=== PATIENT | female | born 1945 ===

== ENCOUNTER 2017-05-23 08:30 | Day surgery (SDC) | payer MEDICARE, MEDICAID ==
[2015-11-08 07:52] VITALS: BMI 44.4
[2017-05-23 10:18] VITALS: PULSE 70; RESP 18
--- NOTE | 2017-05-23 11:09 | CP.SDSHP ---
Same Day Surgery H & P - History Proposed Procedure: US guided FNA of thyroid nodules Pre-Op Diagnosis: Thyroid nodules - Allergies Allergies: Allergies No Known Allergies Allergy (Verified 11/08/15 07:51) - Physical Exam Vital Signs: Vital Signs 05/23/17 10:11 Temperature 97.9 F Pulse Rate 70 Respiratory 18 Rate Blood Pressure 125/71 O2 Sat by Pulse 97 Oximetry Mental Status: Alert & Oriented x3 - Impression Impression: Pt with a complex, calcified right 3 cm thyroid nodule. Subcentimeter nodule on left thyroid. Plan US guided FNA of righ thyroid nodle. Pt. Evaluated Today:Candidate for Anesthesia & Procedure: No - Date & Time Date: 05/23/17 Time: 11:00 Short Stay Discharge - Short Stay Discharge Admitting Diagnosis/Reason for Visit: NONTOXIC SINGLE THYROID NODULE Disposition: HOME/ ROUTINE
--- NOTE | 2017-05-23 11:12 | PCM.SURG1 ---
Surgeon's Initial Post Op Note - Surgeon's Notes Surgeon: Mark Reese MD Director Of Health Education: NONE Type of Anesthesia: Local Pre-Operative Diagnosis: Thyroid nodules Operative Findings: omplex, calcified right 3 cm thyroid nodule Post-Operative Diagnosis: Thyroid nodules Operation Performed: US guided FNA of right thyroid nodule Specimen/Specimens Removed: 25 g FNA x 4 Estimated Blood Loss: EBL {In ML}: 0 Blood Products Given: N/A Drains Used: No Drains Post-Op Condition: Fair Date of Surgery/Procedure: 05/23/17 Time of Surgery/Procedure: 11:05
[2017-05-23 11:37] VITALS: BP 120/79; TEMP 97; O2SAT 100
--- NOTE | 2017-05-27 13:25 | US ---
PROCEDURE: Date of Procedure: 05/23/2017 PROCEDURE: 1. Ultrasound guided FNA of right thyroid nodule, CPT 84083 2. Ultrasound guidance for FNA, 85198 Medications: 3cc 1% Lidocaine HISTORY: Enlarged right thyroid nodule. TECHNIQUE: Following informed consent and procedure time-out, a limited ultrasound patient's neck confirmed the presence of a 3 cm complex right thyroid nodule which is predominantly solid and has calcification. After the patient's neck was prepped and draped in the usual sterile fashion, the skin was anesthetized with 1% lidocaine. Ultrasound-guided fine needle aspiration was then performed of the dominant right thyroid nodule. A total of 4 passes were made into the nodule with 25 gauge needle under ultrasound guidance. The FNA specimen was sent for routine pathology. Post biopsy ultrasound showed no hematoma. IMPRESSION: Ultrasound-guided FNA of the dominant right thyroid nodule.
== END 2017-05-23 11:59 | disposition home or self-care (01) ==
LOC: C.SPRAD 08:30
PROVIDERS: ATTEND Radiology Vascular & Interventional Radiology
DX: E04.1 Nontoxic single thyroid nodule (principal)

== ENCOUNTER 2017-10-03 12:42 | Inpatient (IN) | payer MEDICARE, MEDICAID ==
[2017-10-03 12:44] VITALS: BMI 44.4
--- NOTE | 2017-10-03 13:35 | RAD ---
PROCEDURE: CHEST RADIOGRAPH, 1 VIEW HISTORY: SOB COMPARISON: Comparison made with chest radiograph dated 03/23/2014 FINDINGS: LUNGS: Central pulmonary vasculature is mildly congested PLEURA: No pneumothorax or pleural fluid seen. CARDIOVASCULAR: Heart remains enlarged. No change single lead pacemaker OSSEOUS STRUCTURES: No significant abnormalities. VISUALIZED UPPER ABDOMEN: Normal. OTHER FINDINGS: None. IMPRESSION: Mild central pulmonary vascular congestion. Cardiomegaly.
[2017-10-03 14:32] LABS: BASO # 0.1 K/uL (0.0-0.2); BASO % 0.6 % (0.0-2.0); EOS # 0.2 K/uL (0.0-0.7); EOS % 2.5 % (0.0-4.0); HEMOGLOBIN 13.7 g/dL (11.0-16.0); LYMPH % 20.9 % (20.0-40.0); MEAN CELL VOLUME 79.9 fL (81.0-99.0); MEAN CORPUSCULAR HEMOGLOBIN 26.1 pg (27.0-31.0); MEAN CORPUSCULAR HGB CONC 32.7 g/dL (33.0-37.0); MEAN PLATELET VOLUME 9.6 fL (7.2-11.7); MONO # 0.7 K/uL (0.0-0.8); MONO % 7.6 % (0.0-10.0); NEUT # 6.4 K/uL (1.8-7.0); NEUT % 68.4 % (50.0-75.0); NRBC % 0.1 % (0.0-2.0); RBC 5.24 Mil/uL (3.80-5.20); RED CELL DISTRIBUTION WIDTH 16.5 % (11.5-14.5); WHITE BLOOD COUNT 9.3 K/uL (4.8-10.8)
[2017-10-03 14:46] LABS: URINE BACTERIA RARE (<OCC); URINE BILIRUBIN NEGATIVE (NEGATIVE); URINE BLOOD NEGATIVE (NEGATIVE); URINE CLARITY Clear (Clear); URINE COLOR Colorless (YELLOW); URINE GLUCOSE (UA) NORMAL (Normal); URINE LEUKOCYTE ESTERASE NEG Leu/uL (Negative); URINE NITRATE NEGATIVE (NEGATIVE); URINE PROTEIN NEGATIVE (NEGATIVE); URINE UROBILINOGEN NORMAL mg/dL (0.2-1.0)
--- NOTE | 2017-10-03 14:56 | C.PDOC ---
History Of Present Illness 72 year old female presents to the ED from home for evaluation of shortness of breath and increased leg edema. Patient states she takes 80mg of Lasix in the morning and 40mg of Lasix in the afternoon. Patient admits to overdrinking diuretics. She denies fever, chills. Time Seen by Provider: 10/03/17 13:05 Chief Complaint (Nursing): Shortness Of Breath History Per: Patient History/Exam Limitations: no limitations Onset/Duration Of Symptoms: Days Current Symptoms Are (Timing): Still Present Current Respiratory Medications: See Home Med List Additional History Per: Patient Past Medical History Reviewed: Historical Data, Nursing Documentation, Vital Signs Vital Signs: Last Vital Signs Temp 97.4 F L 10/03/17 17:35 Pulse 70 10/03/17 18:00 Resp 20 10/03/17 17:35 BP 135/71 10/03/17 17:35 Pulse Ox 97 10/03/17 22:45 - Medical History PMH: Anxiety, Arthritis, Asthma, CAD, CHF, Colonic Polyps, COPD, Diabetes, HTN, Hypercholesterolemia Denies: Chronic Kidney Disease Surgical History: Pacemaker Family History: States: Unknown Family Hx - Social History Hx Tobacco Use: No Hx Alcohol Use: No Hx Substance Use: No - Immunization History Hx Tetanus Toxoid Vaccination: No Hx Influenza Vaccination: Yes Hx Pneumococcal Vaccination: Yes Review Of Systems Constitutional: Negative for: Fever, Chills Respiratory: Positive for: Shortness of Breath Musculoskeletal: Positive for: Other (leg edema ) Physical Exam - Physical Exam Appears: Non-toxic, Other (morbidly obese, moderate shortness of breath noted ) Skin: Normal Color, Warm, Dry Head: Atraumatic, Normacephalic Eye(s): bilateral: Normal Inspection Oral Mucosa: Moist Neck: Supple, Other (JVD) Chest: Symmetrical, No Deformity, No Tenderness Cardiovascular: Rhythm Regular, No Murmur Respiratory: Rales, No Rhonchi, No Wheezing Extremity: Normal ROM, Capillary Refill (less than 2 seconds ), Other (4/4 pitting edema to bilateral lower extremities ) Neurological/Psych: Oriented x3, Normal Speech, Normal Cognition ED Course And Treatment - Laboratory Results Result Diagrams: 10/03/17 14:26 10/03/17 13:52 ECG: Interpreted By Me, Viewed By Me ECG Rhythm: V Paced Rate From EC O2 Sat by Pulse Oximetry: 97 (on RA) Pulse Ox Interpretation: Normal - Radiology CXR: Interpreted by Me, Viewed By Me CXR Interpretation: Yes: Other (CHF) - Other Rad leg dopplers X-Ray: Interpreted by Me, Read By Radiologist (neg for DVT) Progress Note: Bloodwork, UA, CXR, EKG, Venous Duplex Scan B/L LE ordered and reviewed. Lasix IVP, Morphine IVP administered. 1400: Case discussesd with Dr. Tucker, who states patient is okay to admit. 1400: Case discussed with Dr. Ortiz. Will consult. Reevaluation Time: 16:13 Reassessment Condition: Improved - Physician Consult Information Outcome Of Conversation: 1400, 1600: d/w Dr. Sears, ok to admit. 1400: d/w Dr. Ortiz, will consult Medical Decision Making Medical Decision Making: recurrent CHF, fluid overload poor fluid restriction @ home. no DVT Disposition Doctor Will See Patient In The: Hospital Counseled Patient/Family Regarding: Studies Performed, Diagnosis - Disposition Disposition: HOSPITALIZED Disposition Time: 16:10 Condition: GOOD - Clinical Impression Clinical Impression: Chronic congestive heart failure - Scribe Statement The provider has reviewed the documentation as recorded by the Scribe (Nova Jang) Provider Attestation: All medical record entries made by the Scribe were at my direction and personally dictated by me. I have reviewed the chart and agree that the record accurately reflects my personal performance of the history, physical exam, medical decision making, and the department course for this patient. I have also personally directed, reviewed, and agree with the discharge instructions and disposition.
[2017-10-03 15:01] LABS: INR 1.2; PROTHROMBIN TIME 13.3 SECONDS (9.7-12.2)
[2017-10-03 15:25] LABS: ALB/GLOB RATIO 1.2 (1.0-2.1); ALBUMIN 4.1 g/dL (3.5-5.0); ALT/SGPT 13 U/L (9-52); AST/SGOT 19 U/L (14-36); BLOOD UREA NITROGEN 15 mg/dL (7-17); CALCIUM 9.2 mg/dl (8.6-10.4); GFR AFRICAN-AMERICAN > 60; GFR NON-AFRICAN AMERICAN > 60
[2017-10-03] MEDS ORDERED: Morphine 4 MG/ML VIAL ONE (15:26)
[2017-10-03 15:36] LABS: B-TYPE NATRIURETIC PEPTIDE 634 pg/mL (0-900)
[2017-10-03] MEDS ORDERED: Oxycodone/Acetaminophen 5/325 mg Tab PO PRN (20:05)
[2017-10-03] MEDS ORDERED: Albuterol-Ipratrop 20 mcg/actuation (4 g) INH PRN (20:19)
[2017-10-03 21:42] LABS: CK-MB 0.52 ng/mL (0.0-3.38)
[2017-10-04] MEDS: Oxycodone/Acetaminophen 5/325 mg Tab PO PRN ×2 (00:11→18:41)
[2017-10-04 07:47] LABS: MAGNESIUM 1.9 mg/dL (1.6-2.3)
[2017-10-04 07:58] LABS: B-TYPE NATRIURETIC PEPTIDE 460 pg/mL (0-900); CK-MB 0.55 ng/mL (0.0-3.38)
--- NOTE | 2017-10-04 08:42 | VASCLAB ---
PROCEDURE: Lower Extremity Venous Duplex Exam. HISTORY: leg edema PRIORS: None. TECHNIQUE: Bilateral common femoral, femoral, popliteal and posterior tibial, peroneal and great saphenous veins were evaluated. Flow was assessed with color Doppler, compressibility, assessment of phasic flow and augmentation response. Report prepared by CHADWICK Wright, RVT FINDINGS: RIGHT: 1. Common Femoral Vein: 1.1. Compressibility - Fully compressible: Thrombus - None : Flow - Phasic: Augmentation -Normal: Reflux - None. 2. Femoral Vein: 2.1. Compressibility - Fully compressible: Thrombus - None : Flow - Phasic: Augmentation -Normal: Reflux - None. 3. Popliteal Vein: 3.1. Compressibility - Fully compressible: Thrombus - None : Flow - Phasic: Augmentation -Normal: Reflux - None. 4. Posterior Tibial Vein: 4.1. Compressibility - Fully compressible: Thrombus - None: Flow - Phasic: Augmentation -Normal: Reflux - None. 5. Peroneal Vein: 5.1. Compressibility - Fully compressible: Thrombus - None: Flow - Phasic: Augmentation -Normal: Reflux - None. 6. Great Saphenous Vein: 6.1. Compressibility - Fully compressible: Thrombus - None: Flow - Phasic: Augmentation - Normal: Reflux - Severe. LEFT: 1. Common Femoral Vein: 1.1. Compressibility - Fully compressible: Thrombus - None: Flow - Phasic: Augmentation -Normal: Reflux - None. 2. Femoral Vein: 2.1. Compressibility - Fully compressible: Thrombus - None: Flow - Phasic: Augmentation -Normal: Reflux - None. 3. Popliteal Vein: 3.1. Compressibility - Fully compressible: Thrombus - None : Flow - Phasic: Augmentation -Normal: Reflux - None. 4. Posterior Tibial Vein: 4.1. Compressibility - Fully compressible: Thrombus - None: Flow - Phasic: Augmentation -Normal: Reflux - None. 5. Peroneal Vein: 5.1. Compressibility - Fully compressible: Thrombus - None: Flow - Phasic: Augmentation -Normal: Reflux - None. 6. Great Saphenous Vein: 6.1. Compressibility - Fully compressible: Thrombus - None: Flow - Phasic: Augmentation - Normal: Reflux - None. OTHER FINDINGS: none significant. IMPRESSION: Right: No evidence of deep or superficial vein thrombosis of the right lower extremity. Normal valve function noted of the right side. Severe valvular incompetence of the left greater saphenous vein. Left: No evidence of deep or superficial vein thrombosis of the left lower extremity. Normal valve function noted of the left side.
[2017-10-04] MEDS: Insulin Detemir 100 units/ml Vial (Levemir) SC SCH ×2 (10:00→17:47)
[2017-10-04] MEDS: Pantoprazole 40 mg EC Tab PO SCH (10:05)
[2017-10-04] MEDS: diltiaZEM 120 mg/24 Hours CD Cap PO SCH (10:06)
[2017-10-04] MEDS: Fluticasone-Salmeterol 250-50mcg Diskus INH SCH (10:55)
--- NOTE | 2017-10-04 11:58 | CP.PCM.CON ---
History of Present Illness - History of Present Illness History of Present Illness: I was asked to evaluate patient by Dr Tucker Patient is a 72 year old female with PMH chronic atrial fibrillation, s/p PPM, COPD, obesity who presents with dyspnea. Patient states she has progressive shortness of breath, worse with walking one block. The patient denies chest pain or palpitations. Review of Systems - Constitutional Constitutional: absent: As Per HPI, Anorexia, Chills, Daytime Sleepiness, Excessive Sweating, Fatigue, Fever, Frequent Falls, Headache, Increased Appetite , Lethargy, Malaise, Night Sweats, Snoring, Sleep Apnea, Weight Gain, Weight Loss, Weakness, Other - EENT Eyes: absent: As Per HPI, Blind Spots, Blurred Vision, Change in Vision, Decreased Night Vision, Diplopia, Discharge, Dry Eye, Exophthalmos, Floaters, Irritation, Itchy Eyes, Loss of Peripheral Vision, Pain, Photophobia, Requires Corrective Lenses, Sees Flashes, Spots in Vision, Tunnel Vision, Other Visual Disturbances, Loss of Vision, Other Ears: absent: As Per HPI, Decreased Hearing, Ear Discharge, Ear Pain, Tinnitus, Abnormal Hearing, Disequilibrium, Dizziness, Other Nose/Mouth/Throat: absent: As Per HPI, Epistaxis, Nasal Congestion, Nasal Discharge, Nasal Obstruction, Nasal Trauma, Nose Pain, Post Nasal Drip, Sinus Pain, Sinus Pressure, Bleeding Gums, Change in Voice, Dental Pain, Dry Mouth, Dysphagia, Halitosis, Hoarsness, Lip Swelling, Mouth Lesions, Mouth Pain, Odynophagia, Sore Throat, Throat Swelling, Tongue Swelling, Facial Pain, Neck Pain, Neck Mass, Other - Cardiovascular Cardiovascular: Dyspnea - Respiratory Respiratory: Dyspnea - Gastrointestinal Gastrointestinal: absent: As Per HPI, Abdominal Pain, Belching, Bloating, Change in Bowel Habits, Change in Stool Character, Coffee Ground Emesis, Constipation, Cramping, Diarrhea, Dyspepsia, Dysphagia, Early Satiety, Excessive Flatus, Fecal Incontinence, Heartburn, Hematemesis, Hematochezia, Loose Stools, Melena, Nausea, Odynophagia, Temesmus, Vomiting, Other - Genitourinary Genitourinary: absent: As Per HPI, Change in Urinary Stream, Difficulty Urinating, Dysuria, Flank Pain, Hematuria, Pyuria, Nocturia, Urinary Incontinence, Urinary Frequency, Urinary Hesitance, Urinary Urgency, Voiding Freq/Small Amts, Freq UTI, Hx Renal/Bladder Calculi, Hx /Renal Surgery, Bladder Distension, Other - Musculoskeletal Musculoskeletal: absent: As Per HPI, Abnormal Gait, Arthralgias, Atrophy, Back Pain, Deformity, Joint Swelling, Limited Range of Motion, Loss of Height, Muscle Cramps, Muscle Weakness, Myalgias, Neck Pain, Numbness, Radiating Pain into Limb, Stiffness, Tingling, Other - Integumentary Integumentary: absent: As Per HPI, Acne, Alopecia, Bleeding Lesions, Change in Hair, Change in Nails, Change in Pigmentation, Changing Lesions, Dry Skin, Erythema, Furuncle, Hirsutism, Lesions, New Lesions, Non-Healing Lesions, Photosensitivity, Pruritus, Rash, Skin Pain, Skin Ulcer, Sores, Striae, Swelling , Unusual Bruising, Wounds, Jaundice, Other - Neurological Neurological: absent: As Per HPI, Abnormal Gait, Abnormal Hearing, Abnormal Movements, Abnormal Speech, Behavioral Changes, Burning Sensations, Confusion, Convulsions, Disequilibrium, Dizziness, Numbness, Focal Weakness, Frequent Falls , Headaches, Lack of Coordination, Loss of Vision, Memory Loss, Paresthesias, Radicular Pain, Restless Legs, Sensory Deficit, Syncope, Tingling, Tremor, Vertigo, Weakness, Other Visual Disturbances, Other - Psychiatric Psychiatric: absent: As Per HPI, Abnormal Sleep Pattern, Anhedonia, Anxiety, Auditory Hallucinations, Behavioral Changes, Change in Appetite, Change in Libido, Confusion, Depression, Difficulty Concentrating, Hallucinations, Homicidal Ideation, Hopelessness, Irritability, Memory Loss, Mood Swings, Panic Attacks, Paranoia, Suicidal Ideation, Visual Hallucinations, Tactile Hallucinations, Other - Endocrine Endocrine: absent: As Per HPI, Change in Body Appearance, Change in Libido, Cold Intolorance, Deepening of Voice, Excessive Sweating, Fatigue, Flushing, Heat Intolorance, Increase in Ring/Shoe/Hat Size, Palpitations, Polydipsia, Polyphagia, Polyuria, Other - Hematologic/Lymphatic Hematologic: absent: As Per HPI, Easy Bleeding, Easy Bruising, Lymphadenopathy, Other Past Patient History - Past Medical History & Family History Past Medical History?: Yes - Past Social History Smoking Status: Never Smoked - CARDIAC Hx Congestive Heart Failure: Yes Hx Hypercholesterolemia: Yes Hx Hypertension: Yes Hx Pacemaker: Yes - PULMONARY Hx Asthma: Yes Hx Chronic Obstructive Pulmonary Disease (COPD): Yes - NEUROLOGICAL Hx Neurological Disorder: Yes Hx Vertigo: Yes Other/Comment: SCIATICA RIGHT SIDE - HEENT Hx HEENT Problems: Yes Other/Comment: HX: THYROID NODULE - RENAL Hx Chronic Kidney Disease: No - ENDOCRINE/METABOLIC Hx Endocrine Disorders: Yes Hx Diabetes Mellitus Type 1: Yes - HEMATOLOGICAL/ONCOLOGICAL Hx Blood Disorders: No - INTEGUMENTARY Hx Dermatological Problems: No - MUSCULOSKELETAL/RHEUMATOLOGICAL Hx Arthritis: Yes - GASTROINTESTINAL Hx Gastrointestinal Disorders: Yes Hx Hemorrhoids: Yes - GENITOURINARY/GYNECOLOGICAL Hx Genitourinary Disorders: No - PSYCHIATRIC Hx Anxiety: Yes Hx Substance Use: No - SURGICAL HISTORY Hx Surgeries: Yes Hx Section: Yes (X1) Other/Comment: HX: COLON POLYPECTOMY - ANESTHESIA Hx Anesthesia: Yes Hx Anesthesia Reactions: No Hx Malignant Hyperthermia: No Meds Allergies/Adverse Reactions: Allergies Allergy/AdvReac Type Severity Reaction Status Date / Time No Known Allergies Allergy Verified 10/03/17 12:59 - Medications Medications: Current Medications Albuterol/Ipratropium (Combivent Respimat) 2.5 puff INH TID PRN PRN Reason: Shortness of Breath Carvedilol (Coreg) 12.5 mg PO BID [facility] Last Admin: 10/04/17 10:06 Dose: 12.5 mg Dabigatran (Pradaxa) 150 mg PO BID [facility] Last Admin: 10/04/17 11:00 Dose: 150 mg Diltiazem HCl (Cardizem Cd) 120 mg PO DAILY [facility] Last Admin: 10/04/17 10:06 Dose: 120 mg Furosemide (Lasix) 40 mg IVP Q12 [facility] Last Admin: 10/04/17 10:02 Dose: 40 mg Insulin Aspart (Novolog) 5 unit SC ACLD [facility] Insulin Detemir (Levemir) 40 unit SC BID [facility] Last Admin: 10/04/17 10:00 Dose: 40 unit Losartan Potassium (Cozaar) 50 mg PO DAILY [facility] Last Admin: 10/04/17 10:06 Dose: 50 mg Montelukast Sodium (Singulair) 10 mg PO HS [facility] Last Admin: 10/03/17 21:15 Dose: 10 mg Oxycodone/Acetaminophen (Percocet 5/325 Mg Tab) 1 tab PO Q8 PRN PRN Reason: Pain, moderate (4-7) Stop: 10/06/17 22:01 Last Admin: 10/04/17 00:11 Dose: 1 tab Pantoprazole Sodium (Protonix Ec Tab) 40 mg PO DAILY [facility] Last Admin: 10/04/17 10:05 Dose: 40 mg Rosuvastatin Calcium (Crestor) 10 mg PO HS [facility] Last Admin: 10/03/17 21:15 Dose: 10 mg Fluticasone/Salmeterol (Advair Diskus 250/50) 1 puff INH RQ12 [facility] Last Admin: 10/04/17 10:55 Dose: Not Given Sitagliptin Phosphate (Januvia) 100 mg PO DAILY [facility] Last Admin: 10/04/17 10:06 Dose: 100 mg Physical Exam - Constitutional Appears: Non-toxic - Head Exam Head Exam: NORMAL INSPECTION - Eye Exam Eye Exam: Normal appearance - ENT Exam ENT Exam: Mucous Membranes Moist - Neck Exam Neck exam: Positive for: Full Rom - Respiratory Exam Respiratory Exam: Decreased Breath Sounds - Cardiovascular Exam Cardiovascular Exam: REGULAR RHYTHM - GI/Abdominal Exam GI & Abdominal Exam: Normal Bowel Sounds - Rectal Exam Rectal Exam: Deferred - Extremities Exam Extremities exam: Positive for: pedal edema - Back Exam Back exam: NORMAL INSPECTION - Neurological Exam Neurological exam: Alert, Oriented x3 - Psychiatric Exam Psychiatric exam: Normal Affect - Skin Skin Exam: Normal Color Results - Vital Signs Recent Vital Signs: Last Vital Signs Temp 98.0 F 10/04/17 08:50 Pulse 76 10/04/17 08:50 Resp 20 10/04/17 08:50 BP 117/70 10/04/17 10:06 Pulse Ox 98 10/04/17 08:50 - Labs Result Diagrams: 10/03/17 14:26 10/03/17 13:52 Labs: Laboratory Results - last 24 hr 10/03/17 10/03/17 10/03/17 13:52 14:26 14:38 WBC 9.3 RBC 5.24 H Hgb 13.7 Hct 41.9 MCV 79.9 L MCH 26.1 L MCHC 32.7 L RDW 16.5 H Plt Count 196 MPV 9.6 Neut % (Auto) 68.4 Lymph % (Auto) 20.9 [place] % (Auto) 7.6 Eos % (Auto) 2.5 Baso % (Auto) 0.6 Neut # (Auto) 6.4 Lymph # (Auto) 2.0 [place] # (Auto) 0.7 Eos # (Auto) 0.2 Baso # (Auto) 0.1 PT INR APTT Sodium 142 Potassium 4.0 Chloride 101 Carbon Dioxide 25 Anion Gap 20 BUN 15 Creatinine 0.8 Est GFR ( Amer) > 60 Est GFR (Non-Af Amer) > 60 POC Glucose (mg/dL) Random Glucose 166 H Calcium 9.2 Phosphorus Magnesium Total Bilirubin 0.5 AST 19 ALT 13 Alkaline Phosphatase 72 Total Creatine Kinase CK-MB (Mass) Troponin I < 0.0120 NT-Pro-B Natriuret Pep 634 Total Protein 7.5 Albumin 4.1 Globulin 3.5 Albumin/Globulin Ratio 1.2 Urine Color Colorless Urine Clarity Clear Urine pH 6.0 Ur Specific [place] 1.005 Urine Protein Negative Urine Glucose (UA) Normal Urine Ketones Negative Urine Blood Negative Urine Nitrate Negative Urine Bilirubin Negative Urine Urobilinogen Normal Ur Leukocyte Esterase Neg Urine RBC (Auto) < 1 Urine Bacteria Rare 10/03/17 10/03/17 10/03/17 14:49 17:35 21:13 WBC RBC Hgb Hct MCV MCH MCHC RDW Plt Count MPV Neut % (Auto) Lymph % (Auto) [place] % (Auto) Eos % (Auto) Baso % (Auto) Neut # (Auto) Lymph # (Auto) [place] # (Auto) Eos # (Auto) Baso # (Auto) PT 13.3 H INR 1.2 APTT 56 H Sodium Potassium Chloride Carbon Dioxide Anion Gap BUN Creatinine Est GFR ( Amer) Est GFR (Non-Af Amer) POC Glucose (mg/dL) 130 H Random Glucose Calcium Phosphorus Magnesium Total Bilirubin AST ALT Alkaline Phosphatase Total Creatine Kinase 33 CK-MB (Mass) 0.52 Troponin I < 0.0120 NT-Pro-B Natriuret Pep Total Protein Albumin Globulin Albumin/Globulin Ratio Urine Color Urine Clarity Urine pH Ur Specific [place] Urine Protein Urine Glucose (UA) Urine Ketones Urine Blood Urine Nitrate Urine Bilirubin Urine Urobilinogen Ur Leukocyte Esterase Urine RBC (Auto) Urine Bacteria 10/03/17 10/04/17 10/04/17 21:57 06:31 06:43 WBC RBC Hgb Hct MCV MCH MCHC RDW Plt Count MPV Neut % (Auto) Lymph % (Auto) [place] % (Auto) Eos % (Auto) Baso % (Auto) Neut # (Auto) Lymph # (Auto) [place] # (Auto) Eos # (Auto) Baso # (Auto) PT INR APTT Sodium Potassium Chloride Carbon Dioxide Anion Gap BUN Creatinine Est GFR ( Amer) Est GFR (Non-Af Amer) POC Glucose (mg/dL) 255 H 190 H Random Glucose Calcium Phosphorus 5.3 H Magnesium 1.9 Total Bilirubin AST ALT Alkaline Phosphatase Total Creatine Kinase 26 L CK-MB (Mass) 0.55 Troponin I < 0.0120 NT-Pro-B Natriuret Pep 460 Total Protein Albumin Globulin Albumin/Globulin Ratio Urine Color Urine Clarity Urine pH Ur Specific [place] Urine Protein Urine Glucose (UA) Urine Ketones Urine Blood Urine Nitrate Urine Bilirubin Urine Urobilinogen Ur Leukocyte Esterase Urine RBC (Auto) Urine Bacteria - EKG Data EKG Interpreted by: Myself Assessment & Plan (1) Dyspnea Assessment and Plan: multifactorial. patient BNP is not markedly elevated. will continue lasix although there may also be underlying COPD. Status: Acute (2) Chronic atrial fibrillation Assessment and Plan: continue Pradaxa Status: Acute (3) HTN (hypertension) Assessment and Plan: blood pressure controlled. Status: Acute
[2017-10-04] MEDS: (Novolog) Insulin Aspart, Recombinant 100 u/ml 10 ml vial SC SCH ×2 (12:28→17:47)
--- NOTE | 2017-10-04 14:23 | CP.PCM.HP ---
History of Present Illness - History of Present Illness History of Present Illness: Pt is a 72 year old who presented to my office on 10/03/17 complaining of sob. Pt denies fever. Has been using her nebs as prescribed symbicort and ventolin. PMH: Calculus of kidneys Nontoxic multinodular goiter Back-Pain Atrial FIB Pacemaker and ablation Asthma Diabetes HTN Hypercholesterolemia Anemia Sleep apnea Depression Polyosteoarthritis copd Obesity osteoarthritis Allergies: NKDA Family Hx: mother-DM Medications: pradaxa 150 BID Ventolin 90 1-2 puffs 4x day Singulair 10 QD Symbicort 160mcg-4.5mcg 1 puff BID Diltiazem 360mg QD Novolog Flexpen inject 3x day Zocor 40 QHS Januvia 100 QD Movantik 25 QD Carvedilol 12.5 BID Benicar 20 QD Levemir inject BID Budureon 1 unit inject weekly Social Hx: neg. Tobacco neg. ETOH neg. Drugs Present on Admission - Present on Admission Any Indicators Present on Admission: No Review of Systems - Constitutional Constitutional: Weakness. absent: Fever - EENT Eyes: absent: Diplopia - Cardiovascular Cardiovascular: Dyspnea on Exertion. absent: Chest Pain with Activity - Gastrointestinal Gastrointestinal: absent: Abdominal Pain Past Patient History - Past Medical History & Family History Past Medical History?: Yes - Past Social History Smoking Status: Never Smoked - CARDIAC Hx Congestive Heart Failure: Yes Hx Hypercholesterolemia: Yes Hx Hypertension: Yes Hx Pacemaker: Yes - PULMONARY Hx Asthma: Yes Hx Chronic Obstructive Pulmonary Disease (COPD): Yes - NEUROLOGICAL Hx Neurological Disorder: Yes Hx Vertigo: Yes Other/Comment: SCIATICA RIGHT SIDE - HEENT Hx HEENT Problems: Yes Other/Comment: HX: THYROID NODULE - RENAL Hx Chronic Kidney Disease: No - ENDOCRINE/METABOLIC Hx Endocrine Disorders: Yes Hx Diabetes Mellitus Type 1: Yes - HEMATOLOGICAL/ONCOLOGICAL Hx Blood Disorders: No - INTEGUMENTARY Hx Dermatological Problems: No - MUSCULOSKELETAL/RHEUMATOLOGICAL Hx Arthritis: Yes - GASTROINTESTINAL Hx Gastrointestinal Disorders: Yes Hx Hemorrhoids: Yes - GENITOURINARY/GYNECOLOGICAL Hx Genitourinary Disorders: No - PSYCHIATRIC Hx Anxiety: Yes Hx Substance Use: No - SURGICAL HISTORY Hx Surgeries: Yes Hx Section: Yes (X1) Other/Comment: HX: COLON POLYPECTOMY - ANESTHESIA Hx Anesthesia: Yes Hx Anesthesia Reactions: No Hx Malignant Hyperthermia: No Meds Allergies/Adverse Reactions: Allergies Allergy/AdvReac Type Severity Reaction Status Date / Time No Known Allergies Allergy Verified 10/03/17 12:59 Physical Exam - Constitutional Appears: No Acute Distress - Eye Exam Eye Exam: Normal appearance - ENT Exam ENT Exam: Mucous Membranes Moist - Respiratory Exam Respiratory Exam: Clear to Auscultation Bilateral, NORMAL BREATHING PATTERN - Cardiovascular Exam Cardiovascular Exam: REGULAR RHYTHM - GI/Abdominal Exam GI & Abdominal Exam: Normal Bowel Sounds - Extremities Exam Extremities exam: Positive for: normal inspection, pedal edema Results - Vital Signs Recent Vital Signs: Last Vital Signs Temp 98.0 F 10/04/17 08:50 Pulse 76 10/04/17 08:50 Resp 20 10/04/17 08:50 BP 117/70 10/04/17 10:06 Pulse Ox 98 10/04/17 08:50 - Labs Result Diagrams: 10/03/17 14:26 10/03/17 13:52 Labs: Laboratory Results - last 24 hr 10/03/17 10/03/17 10/03/17 13:52 14:26 14:38 WBC 9.3 RBC 5.24 H Hgb 13.7 Hct 41.9 MCV 79.9 L MCH 26.1 L MCHC 32.7 L RDW 16.5 H Plt Count 196 MPV 9.6 Neut % (Auto) 68.4 Lymph % (Auto) 20.9 Richardson % (Auto) 7.6 Eos % (Auto) 2.5 Baso % (Auto) 0.6 Neut # (Auto) 6.4 Lymph # (Auto) 2.0 Richardson # (Auto) 0.7 Eos # (Auto) 0.2 Baso # (Auto) 0.1 PT INR APTT Sodium 142 Potassium 4.0 Chloride 101 Carbon Dioxide 25 Anion Gap 20 BUN 15 Creatinine 0.8 Est GFR ( Amer) > 60 Est GFR (Non-Af Amer) > 60 POC Glucose (mg/dL) Random Glucose 166 H Calcium 9.2 Phosphorus Magnesium Total Bilirubin 0.5 AST 19 ALT 13 Alkaline Phosphatase 72 Total Creatine Kinase CK-MB (Mass) Troponin I < 0.0120 NT-Pro-B Natriuret Pep 634 Total Protein 7.5 Albumin 4.1 Globulin 3.5 Albumin/Globulin Ratio 1.2 Urine Color Colorless Urine Clarity Clear Urine pH 6.0 Ur Specific [place] 1.005 Urine Protein Negative Urine Glucose (UA) Normal Urine Ketones Negative Urine Blood Negative Urine Nitrate Negative Urine Bilirubin Negative Urine Urobilinogen Normal Ur Leukocyte Esterase Neg Urine RBC (Auto) < 1 Urine Bacteria Rare 10/03/17 10/03/17 10/03/17 14:49 17:35 21:13 WBC RBC Hgb Hct MCV MCH MCHC RDW Plt Count MPV Neut % (Auto) Lymph % (Auto) Richardson % (Auto) Eos % (Auto) Baso % (Auto) Neut # (Auto) Lymph # (Auto) Richardson # (Auto) Eos # (Auto) Baso # (Auto) PT 13.3 H INR 1.2 APTT 56 H Sodium Potassium Chloride Carbon Dioxide Anion Gap BUN Creatinine Est GFR ( Amer) Est GFR (Non-Af Amer) POC Glucose (mg/dL) 130 H Random Glucose Calcium Phosphorus Magnesium Total Bilirubin AST ALT Alkaline Phosphatase Total Creatine Kinase 33 CK-MB (Mass) 0.52 Troponin I < 0.0120 NT-Pro-B Natriuret Pep Total Protein Albumin Globulin Albumin/Globulin Ratio Urine Color Urine Clarity Urine pH Ur Specific [place] Urine Protein Urine Glucose (UA) Urine Ketones Urine Blood Urine Nitrate Urine Bilirubin Urine Urobilinogen Ur Leukocyte Esterase Urine RBC (Auto) Urine Bacteria 10/03/17 10/04/17 10/04/17 21:57 06:31 06:43 WBC RBC Hgb Hct MCV MCH MCHC RDW Plt Count MPV Neut % (Auto) Lymph % (Auto) Richardson % (Auto) Eos % (Auto) Baso % (Auto) Neut # (Auto) Lymph # (Auto) Richardson # (Auto) Eos # (Auto) Baso # (Auto) PT INR APTT Sodium Potassium Chloride Carbon Dioxide Anion Gap BUN Creatinine Est GFR ( Amer) Est GFR (Non-Af Amer) POC Glucose (mg/dL) 255 H 190 H Random Glucose Calcium Phosphorus 5.3 H Magnesium 1.9 Total Bilirubin AST ALT Alkaline Phosphatase Total Creatine Kinase 26 L CK-MB (Mass) 0.55 Troponin I < 0.0120 NT-Pro-B Natriuret Pep 460 Total Protein Albumin Globulin Albumin/Globulin Ratio Urine Color Urine Clarity Urine pH Ur Specific [place] Urine Protein Urine Glucose (UA) Urine Ketones Urine Blood Urine Nitrate Urine Bilirubin Urine Urobilinogen Ur Leukocyte Esterase Urine RBC (Auto) Urine Bacteria 10/04/17 11:55 WBC RBC Hgb Hct MCV MCH MCHC RDW Plt Count MPV Neut % (Auto) Lymph % (Auto) Richardson % (Auto) Eos % (Auto) Baso % (Auto) Neut # (Auto) Lymph # (Auto) Richardson # (Auto) Eos # (Auto) Baso # (Auto) PT INR APTT Sodium Potassium Chloride Carbon Dioxide Anion Gap BUN Creatinine Est GFR ( Amer) Est GFR (Non-Af Amer) POC Glucose (mg/dL) 269 H Random Glucose Calcium Phosphorus Magnesium Total Bilirubin AST ALT Alkaline Phosphatase Total Creatine Kinase CK-MB (Mass) Troponin I NT-Pro-B Natriuret Pep Total Protein Albumin Globulin Albumin/Globulin Ratio Urine Color Urine Clarity Urine pH Ur Specific [place] Urine Protein Urine Glucose (UA) Urine Ketones Urine Blood Urine Nitrate Urine Bilirubin Urine Urobilinogen Ur Leukocyte Esterase Urine RBC (Auto) Urine Bacteria Assessment & Plan - Assessment and Plan (Free Text) Assessment: Worsening sob: multifactorial lungs, cardiac( some elevation in BPNP) morbid obesity admit nebs laxix vq scan ( unlikely as she is on Pradaxa) cardiology consult monitor labs pulm eval
[2017-10-04 16:44] LABS: BLOOD UREA NITROGEN 22 mg/dL (7-17); CALCIUM 8.7 mg/dl (8.6-10.4); GFR AFRICAN-AMERICAN > 60; GFR NON-AFRICAN AMERICAN 55
[2017-10-04] MEDS: Albuterol-Ipratrop 3 mg / 0.5 (3 ml) UD INH SCH (19:42)
[2017-10-04] MEDS ORDERED: Albuterol 0.083% Inhal Sol (2.5 mg/3 mL) UD INH SCH (20:00)
[2017-10-05 01:22] VITALS: RESP 20
[2017-10-05] MEDS: Albuterol-Ipratrop 3 mg / 0.5 (3 ml) UD INH SCH ×4 (02:29→19:40)
[2017-10-05] MEDS: Fluticasone-Salmeterol 250-50mcg Diskus INH SCH ×2 (08:03→19:40)
[2017-10-05] MEDS: Pantoprazole 40 mg EC Tab PO SCH (09:18)
[2017-10-05] MEDS: diltiaZEM 120 mg/24 Hours CD Cap PO SCH (09:19)
[2017-10-05] MEDS: Insulin Detemir 100 units/ml Vial (Levemir) SC SCH ×2 (09:20→18:35)
[2017-10-05] MEDS: (Novolog) Insulin Aspart, Recombinant 100 u/ml 10 ml vial SC SCH ×2 (12:35→18:28)
--- NOTE | 2017-10-05 12:58 | CP.PCM.PN ---
Subjective - Date & Time of Evaluation Date of Evaluation: 10/05/17 Time of Evaluation: 12:45 - Subjective Subjective: patient has less dyspnea. no chest pain Objective - Vital Signs/Intake and Output Vital Signs (last 24 hours): Temp Pulse Resp BP Pulse Ox 97.7 F 74 20 132/76 95 10/04/17 23:35 10/05/17 08:11 10/04/17 23:35 10/05/17 09:19 10/04/17 23:35 - Medications Medications: Current Medications Albuterol/Ipratropium (Duoneb 3 Mg/0.5 Mg (3 Ml) Ud) 3 ml INH RQ6 [facility] Last Admin: 10/05/17 08:03 Dose: 3 ml Carvedilol (Coreg) 12.5 mg PO BID [facility] Last Admin: 10/05/17 09:18 Dose: 12.5 mg Dabigatran (Pradaxa) 150 mg PO BID [facility] Last Admin: 10/05/17 09:18 Dose: 150 mg Diltiazem HCl (Cardizem Cd) 120 mg PO DAILY [facility] Last Admin: 10/05/17 09:19 Dose: 120 mg Furosemide (Lasix) 40 mg IVP Q12 [facility] Last Admin: 10/05/17 09:19 Dose: 40 mg Insulin Aspart (Novolog) 5 unit SC ACLD [facility] Last Admin: 10/05/17 12:35 Dose: Not Given Insulin Detemir (Levemir) 40 unit SC BID [facility] Last Admin: 10/05/17 09:20 Dose: 40 unit Losartan Potassium (Cozaar) 50 mg PO DAILY [facility] Last Admin: 10/05/17 09:18 Dose: 50 mg Montelukast Sodium (Singulair) 10 mg PO [facility] Last Admin: 10/04/17 21:50 Dose: 10 mg Oxycodone/Acetaminophen (Percocet 5/325 Mg Tab) 1 tab PO Q8 PRN PRN Reason: Pain, moderate (4-7) Stop: 10/06/17 22:01 Last Admin: 10/04/17 18:41 Dose: 1 tab Pantoprazole Sodium (Protonix Ec Tab) 40 mg PO DAILY [facility] Last Admin: 10/05/17 09:18 Dose: 40 mg Rosuvastatin Calcium (Crestor) 10 mg PO [facility] Last Admin: 03/03/18 21:50 Dose: 10 mg Fluticasone/Salmeterol (Advair Diskus 250/50) 1 puff INH RQ12 [facility] Last Admin: 10/05/17 08:03 Dose: 1 puff Sitagliptin Phosphate (Januvia) 100 mg PO DAILY [facility] Last Admin: 10/05/17 09:18 Dose: 100 mg - Labs Labs: 10/03/17 14:26 10/04/17 16:23 PT 13.3 SECONDS (9.7-12.2) H 10/03/17 14:49 INR 1.2 10/03/17 14:49 APTT 56 SECONDS (21-34) H 10/03/17 14:49 - Constitutional Appears: Non-toxic - Head Exam Head Exam: NORMAL INSPECTION - Eye Exam Eye Exam: Normal appearance - ENT Exam ENT Exam: Mucous Membranes Moist - Neck Exam Neck Exam: Full ROM - Respiratory Exam Respiratory Exam: Decreased Breath Sounds - Cardiovascular Exam Cardiovascular Exam: REGULAR RHYTHM - GI/Abdominal Exam GI & Abdominal Exam: Normal Bowel Sounds - Rectal Exam Rectal Exam: Deferred - Extremities Exam Extremities Exam: absent: Pedal Edema - Back Exam Back Exam: NORMAL INSPECTION - Neurological Exam Neurological Exam: Alert - Psychiatric Exam Psychiatric exam: Normal Affect - Skin Skin Exam: Normal Color Assessment and Plan (1) Dyspnea Assessment & Plan: multifactorial. will continue diuresis. will check echocardiogram Status: Acute (2) Chronic atrial fibrillation Assessment & Plan: rate controlled. maintain PradaXA Status: Acute (3) HTN (hypertension) Assessment & Plan: blood pressure is controlled. Status: Acute
--- NOTE | 2017-10-05 16:51 | CP.PCM.CON ---
History of Present Illness - History of Present Illness History of Present Illness: Chief complaint: Consult was called for management of cough History of present illness: 72-year-old female with a history of atrial fibrillation, pacemaker, COPD, obesity, on home nebulizer, and also using CPAP as per the patient, came to the emergency room with progressively worsening cough, shortness of breath. The patient is claiming that she is having progressively worsening cough along time, recently had an episode of flulike symptoms. But she is having worsening cough almost a month, got worse recently. She is not able to walk much. Her functional capacity is very limited. In spite of the inhaler, and nebulizer patient is not doing well. She claims that she did not have any fever, no chills, but of cough with mucus production, white colored mucus noted. At night and having difficulty in sleeping. Denies any chest pain. No abdominal symptoms. But her blood sugar is somewhat of a uncontrolled also Past medical history: History of chronic atrial fibrillation, diabetes hypertension hypercholesterolemia obstructive sleep apnea, and obstructive lung disease. Most likely asthma Past surgical history: Nonsmoker. Nonalcoholic. Allergies no known drug allergies Family history noncontributory Current medications reviewed. Patient is also on anticoagulants for chronic atrial fibrillation. Using nebulizer at home, CPAP, and inhaled corticosteroid and mentally Review of system: Patient is having no headache, but complaining of sinus pressure, sore throat, cough, but the mucus production. Wheezing present. Reduced functional capacity. Leg swelling occasionally noted. Abdominal distention present. Vital signs reviewed No neck vein distention noted Bilateral wheezing noted CVS regular heart sound, no murmur noted Abdomen soft, nontender. Extremities no pedal edema RECREATIONAL SPECIALIST alert awake oriented -3, no functional neurological deficit CBC nonspecific CMP showing elevated bicarbonate chest x-ray showing mild venous congestion Venous Doppler showing evidence of no blood clots. Assessment and recommendation: 72-year-old female, with multiple medical history including chronic atrial fibrillation, hypertension, diabetes, hypercholesterolemia, pacemaker placement. On anticoagulation. Patient admitted with the worsening cough and a possible source of breath. Patient has a chronic asthma when the possible exacerbation. Chronic obstructive lung disease. less likely Venous thrombosis Opinion patient will need to be continued on anti-asthma medication, bronchodilator, DVT and GI prophylaxis. may benefit by CPAP will f/u Past Patient History - Past Medical History & Family History Past Medical History?: Yes - Past Social History Smoking Status: Never Smoked - CARDIAC Hx Cardiac Disorders: Yes (CAD, Pacemaker) Hx Congestive Heart Failure: Yes Hx Hypercholesterolemia: Yes Hx Hypertension: Yes - PULMONARY Hx Chronic Obstructive Pulmonary Disease (COPD): Yes - NEUROLOGICAL Hx Neurological Disorder: Yes Hx Vertigo: Yes Other/Comment: SCIATICA RIGHT SIDE - HEENT Hx HEENT Problems: Yes Other/Comment: HX: THYROID NODULE - RENAL Hx Chronic Kidney Disease: No - ENDOCRINE/METABOLIC Hx Diabetes Mellitus Type 1: Yes - HEMATOLOGICAL/ONCOLOGICAL Hx Blood Disorders: No - INTEGUMENTARY Hx Dermatological Problems: No - MUSCULOSKELETAL/RHEUMATOLOGICAL Hx Arthritis: Yes - GASTROINTESTINAL Hx Gastrointestinal Disorders: Yes Hx Hemorrhoids: Yes - GENITOURINARY/GYNECOLOGICAL Hx Genitourinary Disorders: No - PSYCHIATRIC Hx Anxiety: Yes Hx Substance Use: No - SURGICAL HISTORY Hx Surgeries: Yes Hx Section: Yes (X1) Other/Comment: HX: COLON POLYPECTOMY - ANESTHESIA Hx Anesthesia: Yes Hx Anesthesia Reactions: No Hx Malignant Hyperthermia: No Meds Allergies/Adverse Reactions: Allergies Allergy/AdvReac Type Severity Reaction Status Date / Time No Known Allergies Allergy Verified 10/03/17 12:59 - Medications Medications: Current Medications Albuterol/Ipratropium (Duoneb 3 Mg/0.5 Mg (3 Ml) Ud) 3 ml INH RQ6 [facility] Last Admin: 10/05/17 13:48 Dose: 3 ml Carvedilol (Coreg) 12.5 mg PO BID [facility] Last Admin: 10/05/17 09:18 Dose: 12.5 mg Dabigatran (Pradaxa) 150 mg PO BID [facility] Last Admin: 10/05/17 09:18 Dose: 150 mg Diltiazem HCl (Cardizem Cd) 120 mg PO DAILY [facility] Last Admin: 10/05/17 09:19 Dose: 120 mg Furosemide (Lasix) 40 mg IVP Q12 [facility] Last Admin: 10/05/17 09:19 Dose: 40 mg Insulin Aspart (Novolog) 5 unit SC ACLD [facility] Last Admin: 10/05/17 12:35 Dose: Not Given Insulin Detemir (Levemir) 40 unit SC BID [facility] Last Admin: 10/05/17 09:20 Dose: 40 unit Losartan Potassium (Cozaar) 50 mg PO DAILY [facility] Last Admin: 10/05/17 09:18 Dose: 50 mg Montelukast Sodium (Singulair) 10 mg PO HS [facility] Last Admin: 10/04/17 21:50 Dose: 10 mg Oxycodone/Acetaminophen (Percocet 5/325 Mg Tab) 1 tab PO Q8 PRN PRN Reason: Pain, moderate (4-7) Stop: 10/06/17 22:01 Last Admin: 10/04/17 18:41 Dose: 1 tab Pantoprazole Sodium (Protonix Ec Tab) 40 mg PO DAILY [facility] Last Admin: 10/05/17 09:18 Dose: 40 mg Rosuvastatin Calcium (Crestor) 10 mg PO [facility] Last Admin: 10/04/17 21:50 Dose: 10 mg Fluticasone/Salmeterol (Advair Diskus 250/50) 1 puff INH RQ12 [facility] Last Admin: 10/05/17 08:03 Dose: 1 puff Sitagliptin Phosphate (Januvia) 100 mg PO DAILY [facility] Last Admin: 10/05/17 09:18 Dose: 100 mg Results - Vital Signs Recent Vital Signs: Last Vital Signs Temp 97.7 F 10/04/17 23:35 Pulse 74 10/05/17 08:11 Resp 20 10/04/17 23:35 BP 132/76 10/05/17 09:19 Pulse Ox 95 10/04/17 23:35 - Labs Result Diagrams: 10/03/17 14:26 10/04/17 16:23 Labs: Laboratory Results - last 24 hr 10/04/17 10/05/17 10/05/17 21:10 06:35 12:23 POC Glucose (mg/dL) 157 H 150 H 176 H
[2017-10-05] MEDS: Oxycodone/Acetaminophen 5/325 mg Tab PO PRN (20:15)
[2017-10-06] MEDS: Albuterol-Ipratrop 3 mg / 0.5 (3 ml) UD INH SCH ×4 (02:49→20:47)
[2017-10-06] MEDS: Fluticasone-Salmeterol 250-50mcg Diskus INH SCH ×2 (07:13→20:46)
--- NOTE | 2017-10-06 07:55 | CP.PCM.PN ---
Subjective - Date & Time of Evaluation Date of Evaluation: 10/06/17 Time of Evaluation: 07:50 - Subjective Subjective: patient complains of the food and lack of towels. She denies dyspnea. Objective - Vital Signs/Intake and Output Vital Signs (last 24 hours): Temp Pulse Resp BP Pulse Ox 98.4 F 70 20 106/63 96 10/05/17 23:45 10/06/17 03:45 10/05/17 23:45 10/05/17 23:45 10/05/17 23:45 Intake and Output: 10/06/17 10/06/17 06:59 18:59 Intake Total 370 Balance 370 - Medications Medications: Current Medications Albuterol/Ipratropium (Duoneb 3 Mg/0.5 Mg (3 Ml) Ud) 3 ml INH RQ6 [facility] Last Admin: 10/06/17 07:13 Dose: 3 ml Carvedilol (Coreg) 12.5 mg PO BID [facility] Last Admin: 10/05/17 18:28 Dose: 12.5 mg Dabigatran (Pradaxa) 150 mg PO BID [facility] Last Admin: 10/05/17 18:29 Dose: 150 mg Diltiazem HCl (Cardizem Cd) 120 mg PO DAILY [facility] Last Admin: 10/05/17 09:19 Dose: 120 mg Furosemide (Lasix) 40 mg IVP Q12 [facility] Last Admin: 10/05/17 22:30 Dose: 40 mg Insulin Aspart (Novolog) 5 unit SC ACLD [facility] Last Admin: 10/05/17 18:28 Dose: Not Given Insulin Detemir (Levemir) 40 unit SC BID [facility] Last Admin: 10/05/17 18:35 Dose: 40 unit Losartan Potassium (Cozaar) 50 mg PO DAILY [facility] Last Admin: 10/05/17 09:18 Dose: 50 mg Montelukast Sodium (Singulair) 10 mg PO HS [facility] Last Admin: 10/05/17 22:31 Dose: 10 mg Oxycodone/Acetaminophen (Percocet 5/325 Mg Tab) 1 tab PO Q8 PRN PRN Reason: Pain, moderate (4-7) Stop: 10/06/17 22:01 Last Admin: 10/05/17 20:15 Dose: 1 tab Pantoprazole Sodium (Protonix Ec Tab) 40 mg PO DAILY [facility] Last Admin: 10/05/17 09:18 Dose: 40 mg Rosuvastatin Calcium (Crestor) 10 mg PO HS [facility] Last Admin: 10/05/17 22:30 Dose: 10 mg Fluticasone/Salmeterol (Advair Diskus 250/50) 1 puff INH RQ12 [facility] Last Admin: 10/06/17 07:13 Dose: 1 puff Sitagliptin Phosphate (Januvia) 100 mg PO DAILY [facility] Last Admin: 10/05/17 09:18 Dose: 100 mg - Labs Labs: 10/03/17 14:26 10/04/17 16:23 PT 13.3 SECONDS (9.7-12.2) H 10/03/17 14:49 INR 1.2 10/03/17 14:49 APTT 56 SECONDS (21-34) H 10/03/17 14:49 - Constitutional Appears: Non-toxic - Head Exam Head Exam: NORMAL INSPECTION - Eye Exam Eye Exam: Normal appearance - ENT Exam ENT Exam: Mucous Membranes Moist - Neck Exam Neck Exam: Full ROM - Respiratory Exam Respiratory Exam: Decreased Breath Sounds - Cardiovascular Exam Cardiovascular Exam: REGULAR RHYTHM - GI/Abdominal Exam GI & Abdominal Exam: Normal Bowel Sounds - Rectal Exam Rectal Exam: Deferred - Extremities Exam Extremities Exam: Pedal Edema - Back Exam Back Exam: NORMAL INSPECTION - Neurological Exam Neurological Exam: Alert - Psychiatric Exam Psychiatric exam: Normal Affect - Skin Skin Exam: Normal Color Assessment and Plan (1) Dyspnea Assessment & Plan: the patient's symptosm are likely multifactorial. Although she has an underlying cardiac history, she is also morbidly obese. there may be a pulmonary component of the symptoms. I recommend discharge to home after echo. further cardiac testing if needed will be performed as outpatient. Status: Acute (2) Chronic atrial fibrillation Assessment & Plan: conitnue Pradaxa Status: Acute (3) HTN (hypertension) Assessment & Plan: blood pressure is controlled. Status: Acute
--- NOTE | 2017-10-06 09:33 | CARD ---
APPROVED REPORT EKG Measurement Heart [id number] <Conclusion> Ventricular-paced rhythm Abnormal ECG
--- NOTE | 2017-10-06 09:58 | NM ---
COMPARISON: 09/16/2013 ventilation-perfusion scan. TECHNIQUE: 10.0 mCi technetium 99-m Xe-133 Gas. 5.4 mCI technetium 99-m MAA administered intravenously. FINDINGS: VENTILATION COMPONENT: Normal. PERFUSION COMPONENT: Heterogeneous distribution of radionuclide. No geographic, segmental, lobar abnormalities apparent on the present examination. IMPRESSION: Low probability ventilation perfusion scan for pulmonary embolism.
[2017-10-06] MEDS: Insulin Detemir 100 units/ml Vial (Levemir) SC SCH ×2 (10:17→17:44)
[2017-10-06] MEDS: diltiaZEM 120 mg/24 Hours CD Cap PO SCH (10:20)
[2017-10-06] MEDS: Pantoprazole 40 mg EC Tab PO SCH (10:20)
[2017-10-06] MEDS: Oxycodone/Acetaminophen 5/325 mg Tab PO PRN ×2 (10:24→17:43)
[2017-10-06] MEDS: (Novolog) Insulin Aspart, Recombinant 100 u/ml 10 ml vial SC SCH ×2 (12:34→17:42)
--- NOTE | 2017-10-06 19:45 | CP.PCM.PN ---
Subjective - Date & Time of Evaluation Date of Evaluation: 10/06/17 Time of Evaluation: 19:45 - Subjective Subjective: Pt feels better less sob had an episode of dizzines earlier co burning with urination Objective - Vital Signs/Intake and Output Vital Signs (last 24 hours): Temp Pulse Resp BP Pulse Ox 97.3 F L 75 20 139/68 95 10/06/17 15:00 10/06/17 15:00 10/06/17 15:00 10/06/17 17:49 10/06/17 15:00 Intake and Output: 10/06/17 10/07/17 18:59 06:59 Intake Total 400 Balance 400 - Medications Medications: Current Medications Albuterol/Ipratropium (Duoneb 3 Mg/0.5 Mg (3 Ml) Ud) 3 ml INH RQ6 [facility] Last Admin: 10/06/17 13:22 Dose: 3 ml Carvedilol (Coreg) 12.5 mg PO BID [facility] Last Admin: 10/06/17 17:49 Dose: 12.5 mg Dabigatran (Pradaxa) 150 mg PO BID [facility] Last Admin: 10/06/17 17:43 Dose: 150 mg Diltiazem HCl (Cardizem Cd) 120 mg PO DAILY [facility] Last Admin: 10/06/17 10:20 Dose: 120 mg Furosemide (Lasix) 40 mg IVP Q12 [facility] Last Admin: 10/06/17 10:25 Dose: 40 mg Insulin Aspart (Novolog) 5 unit SC ACLD [facility] Last Admin: 10/06/17 17:42 Dose: Not Given Insulin Detemir (Levemir) 40 unit SC BID [facility] Last Admin: 10/06/17 17:44 Dose: 40 unit Losartan Potassium (Cozaar) 50 mg PO DAILY [facility] Last Admin: 10/06/17 10:20 Dose: 50 mg Montelukast Sodium (Singulair) 10 mg PO HS [facility] Last Admin: 10/05/17 22:31 Dose: 10 mg Oxycodone/Acetaminophen (Percocet 5/325 Mg Tab) 1 tab PO Q8 PRN PRN Reason: Pain, moderate (4-7) Stop: 10/06/17 22:01 Last Admin: 10/06/17 17:43 Dose: 1 tab Pantoprazole Sodium (Protonix Ec Tab) 40 mg PO DAILY [facility] Last Admin: 10/06/17 10:20 Dose: 40 mg Rosuvastatin Calcium (Crestor) 10 mg PO HS [facility] Last Admin: 10/05/17 22:30 Dose: 10 mg Fluticasone/Salmeterol (Advair Diskus 250/50) 1 puff INH RQ12 [facility] Last Admin: 10/06/17 07:13 Dose: 1 puff Sitagliptin Phosphate (Januvia) 100 mg PO DAILY [facility] Last Admin: 10/06/17 10:20 Dose: 100 mg - Labs Labs: 10/03/17 14:26 10/04/17 16:23 PT 13.3 SECONDS (9.7-12.2) H 10/03/17 14:49 INR 1.2 10/03/17 14:49 APTT 56 SECONDS (21-34) H 10/03/17 14:49 - Constitutional Appears: Non-toxic - Eye Exam Eye Exam: Normal appearance - ENT Exam ENT Exam: Mucous Membranes Moist - Respiratory Exam Respiratory Exam: Clear to Ausculation Bilateral - Cardiovascular Exam Cardiovascular Exam: REGULAR RHYTHM - GI/Abdominal Exam GI & Abdominal Exam: Normal Bowel Sounds - Neurological Exam Neurological Exam: Oriented x3 Assessment and Plan - Assessment and Plan (Free Text) Assessment: asthma exac morbid obesity htn DM patient much improved earlier episode of dizziness , better now observe overnight as she lives alone if hemodynamically stable as she should be will dc in am buring with urination ua dc planning tomorrow outp follow up with Rupal.
--- NOTE | 2017-10-06 22:25 | CP.PCM.PN ---
Subjective - Date & Time of Evaluation Date of Evaluation: 10/06/17 Time of Evaluation: 22:24 - Subjective Subjective: Less cough, less wheezing. Still having some shortness of breath. Vital signs reviewed No neck vein distention noted Decreased air entry, minimal wheezing CVS regular heart sound, no murmur noted Abdomen soft, nontender. 1+ pedal edema [employer] alert awake oriented -3, no functional neurological deficit Patient 72-year-old female with multiple medical problems, chronic lung disease in the form of asthma most likely, will continue to need bronchodilators, BiPAP , and place, will repeat the blood gas analysis in the morning. Objective - Vital Signs/Intake and Output Vital Signs (last 24 hours): Temp Pulse Resp BP Pulse Ox 97.3 F L 75 20 95/55 L 95 10/06/17 15:00 10/06/17 15:00 10/06/17 15:00 10/06/17 22:01 10/06/17 15:00 Intake and Output: 10/06/17 10/07/17 18:59 06:59 Intake Total 400 Balance 400 - Medications Medications: Current Medications Albuterol/Ipratropium (Duoneb 3 Mg/0.5 Mg (3 Ml) Ud) 3 ml INH RQ6 [facility] Last Admin: 10/06/17 20:47 Dose: 3 ml Carvedilol (Coreg) 12.5 mg PO BID [facility] Last Admin: 10/06/17 17:49 Dose: 12.5 mg Dabigatran (Pradaxa) 150 mg PO BID [facility] Last Admin: 10/06/17 17:43 Dose: 150 mg Diltiazem HCl (Cardizem Cd) 120 mg PO DAILY [facility] Last Admin: 10/06/17 10:20 Dose: 120 mg Furosemide (Lasix) 40 mg IVP Q12 [facility] Last Admin: 10/06/17 22:01 Dose: Not Given Insulin Aspart (Novolog) 5 unit SC ACLD [facility] Last Admin: 10/06/17 17:42 Dose: Not Given Insulin Detemir (Levemir) 40 unit SC BID [facility] Last Admin: 10/06/17 17:44 Dose: 40 unit Losartan Potassium (Cozaar) 50 mg PO DAILY [facility] Last Admin: 10/06/17 10:20 Dose: 50 mg Montelukast Sodium (Singulair) 10 mg PO HS [facility] Last Admin: 10/06/17 22:01 Dose: 10 mg Pantoprazole Sodium (Protonix Ec Tab) 40 mg PO DAILY [facility] Last Admin: 10/06/17 10:20 Dose: 40 mg Rosuvastatin Calcium (Crestor) 10 mg PO HS [facility] Last Admin: 10/06/17 22:02 Dose: 10 mg Fluticasone/Salmeterol (Advair Diskus 250/50) 1 puff INH RQ12 [facility] Last Admin: 10/06/17 20:46 Dose: 1 puff Sitagliptin Phosphate (Januvia) 100 mg PO DAILY [facility] Last Admin: 10/06/17 10:20 Dose: 100 mg - Labs Labs: 10/03/17 14:26 10/04/17 16:23 PT 13.3 SECONDS (9.7-12.2) H 10/03/17 14:49 INR 1.2 10/03/17 14:49 APTT 56 SECONDS (21-34) H 10/03/17 14:49
--- NOTE | 2017-10-06 22:46 | CARD ---
APPROVED REPORT EKG Measurement Heart [id number] <Conclusion> Ventricular-paced rhythm Underlying rhythm is A Fib Abnormal ECG
[2017-10-06 23:15] LABS: SQUAMOUS EPITHIAL 8 /hpf (0-5); URINE BACTERIA RARE (<OCC); URINE BILIRUBIN NEGATIVE (NEGATIVE); URINE BLOOD NEGATIVE (NEGATIVE); URINE CLARITY Hazy (Clear); URINE COLOR Amber (YELLOW); URINE GLUCOSE (UA) NORMAL (Normal); URINE LEUKOCYTE ESTERASE TRACE Leu/uL (Negative); URINE NITRATE NEGATIVE (NEGATIVE); URINE PROTEIN NEGATIVE (NEGATIVE); URINE UROBILINOGEN NORMAL mg/dL (0.2-1.0)
[2017-10-07 00:44] VITALS: PULSE 70
[2017-10-07] MEDS: Albuterol-Ipratrop 3 mg / 0.5 (3 ml) UD INH SCH ×2 (02:04→07:29)
[2017-10-07 06:08] LABS: ABG ALLEN TEST POS; ARTERIAL BLOOD GAS HCO3 28.6 mmol/L (21-28); ARTERIAL BLOOD GAS HEMOGLOBIN 11.9 g/dL (11.7-17.4); ARTERIAL BLOOD GAS O2 SAT 95.3 % (95-98); ARTERIAL BLOOD GAS PCO2 51 mm/Hg (35-45); ARTERIAL BLOOD GAS PH 7.39 (7.35-7.45); ARTERIAL BLOOD GAS PO2 65 mm/Hg (80-100); ARTERIAL BLOOD GAS TCO2 32.5 mmol/L (22-28)
[2017-10-07] MEDS: Fluticasone-Salmeterol 250-50mcg Diskus INH SCH (07:29)
[2017-10-07] MEDS: diltiaZEM 120 mg/24 Hours CD Cap PO SCH (09:29)
[2017-10-07] MEDS: Insulin Detemir 100 units/ml Vial (Levemir) SC SCH (09:32)
[2017-10-07] MEDS: Pantoprazole 40 mg EC Tab PO SCH (09:33)
--- NOTE | 2017-10-07 11:59 | CP.PCM.PN ---
Subjective - Date & Time of Evaluation Date of Evaluation: 10/07/17 Time of Evaluation: 11:00 - Subjective Subjective: patient seen and examined today, awake, alert, ox3, denie s any chest pain, sob , palpitations, dizziness No overnight events reported on monitor . Echo - done today Objective - Vital Signs/Intake and Output Vital Signs (last 24 hours): Temp Pulse Resp BP Pulse Ox 97.8 F 70 20 98/58 L 95 10/07/17 08:27 10/07/17 09:28 10/07/17 08:27 10/07/17 09:31 10/07/17 08:27 - Medications Medications: Current Medications Albuterol/Ipratropium (Duoneb 3 Mg/0.5 Mg (3 Ml) Ud) 3 ml INH RQ6 [facility] Last Admin: 10/07/17 07:29 Dose: 3 ml Carvedilol (Coreg) 12.5 mg PO BID [facility] Last Admin: 10/07/17 09:30 Dose: Not Given Dabigatran (Pradaxa) 150 mg PO BID [facility] Last Admin: 10/07/17 09:33 Dose: 150 mg Diltiazem HCl (Cardizem Cd) 120 mg PO DAILY [facility] Last Admin: 10/07/17 09:29 Dose: Not Given Furosemide (Lasix) 40 mg IVP Q12 [facility] Last Admin: 10/07/17 09:31 Dose: Not Given Insulin Aspart (Novolog) 5 unit SC ACLD [facility] Last Admin: 10/06/17 17:42 Dose: Not Given Insulin Detemir (Levemir) 40 unit SC BID [facility] Last Admin: 10/07/17 09:32 Dose: 40 unit Losartan Potassium (Cozaar) 50 mg PO DAILY [facility] Last Admin: 10/07/17 09:30 Dose: Not Given Montelukast Sodium (Singulair) 10 mg PO HS [facility] Last Admin: 10/06/17 22:01 Dose: 10 mg Pantoprazole Sodium (Protonix Ec Tab) 40 mg PO DAILY [facility] Last Admin: 10/07/17 09:33 Dose: 40 mg Rosuvastatin Calcium (Crestor) 10 mg PO HS [facility] Last Admin: 10/06/17 22:02 Dose: 10 mg Fluticasone/Salmeterol (Advair Diskus 250/50) 1 puff INH RQ12 [facility] Last Admin: 10/07/17 07:29 Dose: 1 puff Sitagliptin Phosphate (Januvia) 100 mg PO DAILY [facility] Last Admin: 10/07/17 09:33 Dose: 100 mg - Labs Labs: 10/03/17 14:26 10/04/17 16:23 PT 13.3 SECONDS (9.7-12.2) H 10/03/17 14:49 INR 1.2 10/03/17 14:49 APTT 56 SECONDS (21-34) H 10/03/17 14:49 - Constitutional Appears: Well, No Acute Distress - Respiratory Exam Respiratory Exam: Clear to Ausculation Bilateral, NORMAL BREATHING PATTERN - Cardiovascular Exam Cardiovascular Exam: REGULAR RHYTHM, +S1, +S2 - Neurological Exam Neurological Exam: Alert, Awake, Oriented x3 Assessment and Plan - Assessment and Plan (Free Text) Assessment: A/P 72 year old female with PMH chronic atrial fibrillation, s/p PPM, COPD, obesity admitted with shortness of breath and leg swelling clinically improved after diuresis echo- done this am Seen by Dr. Whitman, plan discussed, cleared for discharge home today from cardiology standpoint d/W with Dr. Garrett mccain for discharge home today and f/u with her next week Discharge plan discussed patient via moth proofer , who understands and agrees with plan
[2017-10-07] MEDS: (Novolog) Insulin Aspart, Recombinant 100 u/ml 10 ml vial SC SCH (12:15)
[2017-10-07 12:57] VITALS: BP 130/75; TEMP 97.5; O2SAT 96
--- NOTE | 2017-10-07 18:07 | CARD ---
APPROVED REPORT EXAM: Two-dimensional and M-mode echocardiogram with Doppler and color Doppler. Other Information Quality : GoodRhythm : INDICATION Dyspnea Atrial Fibrillation Congestive Heart Failure RISK FACTORS Hypertension 2D DIMENSIONS IVSd0.9 (0.7-1.1cm)LVDd5.0 (3.9-5.9cm) PWd1.0 (0.7-1.1cm)LVDs2.8 (2.5-4.0cm) FS (%) 44.5 %LVEF (%)75.5 (>50%) M-Mode DIMENSIONS Left Atrium (MM)4.75 (2.5-4.0cm)Aortic Root2.44 (2.2-3.7cm) Aortic Cusp Exc.1.82 (1.5-2.0cm) Mitral Valve MV E Hjogpkoe606.4cm/sMV A Sompdxkn31.0cm/sE/A ratio3.4 TDI E/Lateral E'0.0E/Medial E'0.0 Tricuspid Valve TR Peak Ldpabsuk667cc/sTR Peak Gr.50isStIFHW25puYz LEFT VENTRICLE The left ventricle is normal size. There is normal left ventricular wall thickness. The left ventricular function is normal. The left ventricular ejection fraction is within the normal range. Apical motion consistent with pacemaker activation. RIGHT VENTRICLE The right ventricle is normal size. There is normal right ventricular wall thickness. The right ventricular systolic function is normal. ATRIA The left atrium is moderately dilated. The right atrium is mildly dilated. AORTIC VALVE The aortic valve is mildly thickened. No aortic regurgitation is present. There is no aortic valvular stenosis. MITRAL VALVE The mitral valve is mildly thickened. Mitral regurgitation is mild to moderate. TRICUSPID VALVE There is mild tricuspid regurgitation. GREAT VESSELS The aortic root is normal in size. The IVC is normal in size and collapses >50% with inspiration. <Conclusion> The left ventricle is normal size. There is normal left ventricular wall thickness. The left ventricular function is normal. The left ventricular ejection fraction is within the normal range. Apical motion consistent with pacemaker activation. Mitral regurgitation is mild to moderate. There is mild tricuspid regurgitation.
--- NOTE | 2017-10-07 20:53 | CP.PCM.DIS ---
Provider - Provider Date of Admission: 10/03/17 16:10 Pt was admitte with sob pt was treated for asthma exacerbation with good resolution of symptoms Pt was evaluated by pulm and cardiologyst Attending physician: Kenia Tucker MD Time Spent in preparation of Discharge (in minutes): 20 Hospital Course - Lab Results Lab Results: Most Recent Lab Values WBC 9.3 K/uL (4.8-10.8) 10/03/17 14:26 RBC 5.24 Mil/uL (3.80-5.20) H 10/03/17 14:26 Hgb 13.7 g/dL (11.0-16.0) 10/03/17 14:26 Hct 41.9 % (34.0-47.0) 10/03/17 14:26 MCV 79.9 fL (81.0-99.0) L 10/03/17 14:26 MCH 26.1 pg (27.0-31.0) L 10/03/17 14:26 MCHC 32.7 g/dL (33.0-37.0) L 10/03/17 14:26 RDW 16.5 % (11.5-14.5) H 10/03/17 14:26 Plt Count 196 K/uL (130-400) 10/03/17 14:26 MPV 9.6 fL (7.2-11.7) 10/03/17 14:26 Neut % (Auto) 68.4 % (50.0-75.0) 10/03/17 14:26 Lymph % (Auto) 20.9 % (20.0-40.0) 10/03/17 14:26 Alexander % (Auto) 7.6 % (0.0-10.0) 10/03/17 14:26 Eos % (Auto) 2.5 % (0.0-4.0) 10/03/17 14:26 Baso % (Auto) 0.6 % (0.0-2.0) 10/03/17 14:26 Neut # (Auto) 6.4 K/uL (1.8-7.0) 10/03/17 14:26 Lymph # (Auto) 2.0 K/uL (1.0-4.3) 10/03/17 14:26 Alexander # (Auto) 0.7 K/uL (0.0-0.8) 10/03/17 14:26 Eos # (Auto) 0.2 K/uL (0.0-0.7) 10/03/17 14:26 Baso # (Auto) 0.1 K/uL (0.0-0.2) 10/03/17 14:26 PT 13.3 SECONDS (9.7-12.2) H 10/03/17 14:49 INR 1.2 10/03/17 14:49 APTT 56 SECONDS (21-34) H 10/03/17 14:49 Puncture Site Rr 10/07/17 06:04 pCO2 51 mm/Hg (35-45) H 10/07/17 06:04 pO2 65 mm/Hg (80-100) L 10/07/17 06:04 HCO3 28.6 mmol/L (21-28) H 10/07/17 06:04 ABG pH 7.39 (7.35-7.45) 10/07/17 06:04 ABG Total CO2 32.5 mmol/L (22-28) H 10/07/17 06:04 ABG O2 Saturation 95.3 % (95-98) 10/07/17 06:04 ABG Base Excess 4.9 mmol/L (-2.0-3.0) H 10/07/17 06:04 ABG Hemoglobin 11.9 g/dL (11.7-17.4) 10/07/17 06:04 ABG Carboxyhemoglobin 2.6 % (0.5-1.5) H 10/07/17 06:04 POC ABG HHb (Measured) 4.5 % (0.0-5.0) 10/07/17 06:04 ABG Methemoglobin 1.4 % (0.0-3.0) 10/07/17 06:04 Alex Test Pos 10/07/17 06:04 A-a O2 Difference 21.0 mm/Hg 10/07/17 06:04 Respiratory Index 0.3 10/07/17 06:04 Hgb O2 Saturation 91.5 % (95.0-98.0) L 10/07/17 06:04 FiO2 21.0 % 10/07/17 06:04 Sodium 139 mmol/L (132-148) 10/04/17 16:23 Potassium 3.9 mmol/L (3.6-5.2) 10/04/17 16:23 Chloride 95 mmol/L (98-107) L 10/04/17 16:23 Carbon Dioxide 33 mmol/L (22-30) H 10/04/17 16:23 Anion Gap 15 (10-20) 10/04/17 16:23 BUN 22 mg/dL (7-17) H 10/04/17 16:23 Creatinine 1.0 mg/dL (0.7-1.2) 10/04/17 16:23 Est GFR ( Amer) > 60 10/04/17 16:23 Est GFR (Non-Af Amer) 55 10/04/17 16:23 POC Glucose (mg/dL) 148 mg/dL (65-110) H 10/07/17 06:34 Random Glucose 185 mg/dL (65-105) H 10/04/17 16:23 Calcium 8.7 mg/dl (8.6-10.4) 10/04/17 16:23 Phosphorus 5.3 mg/dL (2.5-4.5) H 10/04/17 06:43 Magnesium 1.9 mg/dL (1.6-2.3) 10/04/17 06:43 Total Bilirubin 0.5 mg/dL (0.2-1.3) 10/03/17 13:52 AST 19 U/L (14-36) 10/03/17 13:52 ALT 13 U/L (9-52) 10/03/17 13:52 Alkaline Phosphatase 72 U/L (38-126) 10/03/17 13:52 Total Creatine Kinase 26 U/L (30-135) L 10/04/17 06:43 CK-MB (Mass) 0.55 ng/mL (0.0-3.38) 10/04/17 06:43 Troponin I < 0.0120 ng/mL (0.00-0.120) 10/04/17 06:43 NT-Pro-B Natriuret Pep 460 pg/mL (0-900) 10/04/17 06:43 Total Protein 7.5 g/dL (6.3-8.3) 10/03/17 13:52 Albumin 4.1 g/dL (3.5-5.0) 10/03/17 13:52 Globulin 3.5 gm/dL (2.2-3.9) 10/03/17 13:52 Albumin/Globulin Ratio 1.2 (1.0-2.1) 10/03/17 13:52 Urine Color Teena (YELLOW) 10/06/17 23:01 Urine Clarity Hazy (Clear) 10/06/17 23:01 Urine pH 5.0 (5.0-8.0) 10/06/17 23:01 Ur Specific [place] 1.015 (1.003-1.030) 10/06/17 23:01 Urine Protein Negative mg/dL (NEGATIVE) 10/06/17 23:01 Urine Glucose (UA) Normal mg/dL (Normal) 10/06/17 23: Urine Ketones Negative mg/dL (NEGATIVE) 10/06/17 23:01 Urine Blood Negative (NEGATIVE) 10/06/17 23:01 Urine Nitrate Negative (NEGATIVE) 10/06/17 23:01 Urine Bilirubin Negative (NEGATIVE) 10/06/17 23:01 Urine Urobilinogen Normal mg/dL (0.2-1.0) 10/06/17 23:01 Ur Leukocyte Esterase Trace Katelyn/uL (Negative) 10/06/17 23:01 Urine WBC (Auto) 3 /hpf (0-5) 10/06/17 23:01 Urine RBC (Auto) 4 /hpf (0-3) H 10/06/17 23:01 Ur Squamous Epith Cells 8 /hpf (0-5) H 10/06/17 23:01 Urine Bacteria Rare (<OCC) 10/06/17 23:01 Hyaline Casts 3-5 /lpf (0-2) H 10/06/17 23:01 - Hospital Course Hospital Course: Pt was treated for asthma exa no fever no chest pain continue to improve dc home in stable condition Discharge Exam - Head Exam Head Exam: NORMAL INSPECTION - Eye Exam Eye Exam: Normal appearance - Respiratory Exam Respiratory Exam: NORMAL BREATHING PATTERN - Cardiovascular Exam Cardiovascular Exam: REGULAR RHYTHM. absent: JVD - Extremities Exam Extremities exam: full ROM Discharge Plan - Follow Up Plan Condition: GOOD Instructions: Heart Healthy Diet, Heart Failure, Adult (DC), Carbohydrate Counting Diet, Foot Care for Diabetics, Diabetic Meal Planning Additional Instructions: Please follow up with Dr. Tucker next week - call and make appointment Please follow up with Dr. Ortiz office in 2 weeks Resume all home medication Referrals: Kenia Tucker MD [Staff Provider] - Gloria Vazquez MD [Staff Provider] - Shy Ortiz MD [Staff Provider] -
== END 2017-10-07 12:27 | disposition short-term general hospital (02) | DRG 202 ==
LOC: C.ER 12:42 → C.9E 16:10 → C.6T 16:42
PROVIDERS: ADMIT Internal Medicine; ATTEND Internal Medicine
DX: J45.901 Unspecified asthma with (acute) exacerbation (principal); Z68.42 Body mass index [BMI] 45.0-49.9, adult; E66.01 Morbid (severe) obesity due to excess calories; I11.0 Hypertensive heart disease with heart failure; I48.2 Chronic atrial fibrillation; I50.9 Heart failure, unspecified; J44.9 Chronic obstructive pulmonary disease, unspecified; G47.33 Obstructive sleep apnea (adult) (pediatric); I25.10 Atherosclerotic heart disease of native coronary artery without angina pectoris; M54.30 Sciatica, unspecified side; Z79.4 Long term (current) use of insulin; Z95.0 Presence of cardiac pacemaker; E11.9 Type 2 diabetes mellitus without complications

== ENCOUNTER 2017-12-17 05:48 | Day surgery (SDC) | payer MEDICARE, MEDICAID ==
[2017-12-17 07:09] VITALS: TEMP 97.8
--- NOTE | 2017-12-17 08:19 | CP.SDSHP ---
Same Day Surgery H & P - History Proposed Procedure: Colonoscopy Pre-Op Diagnosis: Surveillance of colon polyps - Previous Medical/Surgical History Cardiac: Hypertension, ASHD/CAD, Arrhythmia, Other (AFib. Pacemaker. Depression) Pulmonary: Emphysema/COPD Endocrine/Metabolic: Diabetes Previous Surgical History: C section. Vocal cord surgery - Allergies Allergies: Allergies No Known Allergies Allergy (Verified 10/03/17 12:59) - Current Medications Current Medications: reviewed, per reconciliation - Physical Exam General Appearance: obese Vital Signs: Vital Signs 12/17/17 07:04 Temperature 97.8 F Pulse Rate 66 Respiratory 19 Rate Blood Pressure 137/57 L O2 Sat by Pulse 98 Oximetry Mental Status: Alert & Oriented x3 Heart: WNL Lungs: WNL - {Optional Preform as Required} Abdomen: WNL (obese) - Impression Impression: surveillance of colon polyps Pt. Evaluated Today:Candidate for Anesthesia & Procedure: Yes - Date & Time Date: 12/17/17 Time: 08:19 Short Stay Discharge - Short Stay Discharge Admitting Diagnosis/Reason for Visit: POLYP OF COLON Disposition: HOME/ ROUTINE
[2017-12-17] MEDS ORDERED: Propofol 10 mg/ml Inj (20 ML) ONE ×3 (08:29→09:20)
[2017-12-17] MEDS ORDERED: Lactated Ringer's 1,000 ML IV SCH (08:45)
[2017-12-17 09:54] VITALS: PULSE 70; O2SAT 100
[2017-12-17 10:35] VITALS: BP 120/44; RESP 11
== END 2017-12-17 10:39 | disposition home or self-care (01) ==
LOC: C.ENDO 05:48
PROVIDERS: ATTEND Internal Medicine Gastroenterology
DX: Z12.11 Encounter for screening for malignant neoplasm of colon (principal); D12.0 Benign neoplasm of cecum; D12.2 Benign neoplasm of ascending colon; D12.3 Benign neoplasm of transverse colon; K57.30 Diverticulosis of large intestine without perforation or abscess without bleeding; Z87.19 Personal history of other diseases of the digestive system; K64.1 Second degree hemorrhoids; K63.5 Polyp of colon; I10 Essential (primary) hypertension; I25.10 Atherosclerotic heart disease of native coronary artery without angina pectoris; I48.91 Unspecified atrial fibrillation; F32.9 Major depressive disorder, single episode, unspecified; Z95.0 Presence of cardiac pacemaker; E11.9 Type 2 diabetes mellitus without complications; J43.9 Emphysema, unspecified
CPT/HCPCS: 45380; 45385; 82948; 88305; J2704; J7120

== ENCOUNTER 2018-01-07 06:02 | Day surgery (SDC) | payer MEDICARE, MEDICAID ==
[2018-01-07 07:04] VITALS: PULSE 70
[2018-01-07] MEDS ORDERED: Propofol 10 mg/ml Inj (20 ML) ONE (08:13)
--- NOTE | 2018-01-07 08:15 | CP.SDSHP ---
Same Day Surgery H & P - History Proposed Procedure: EGD/Bx Pre-Op Diagnosis: Preoperative assessment prior to bariatric surgery - Previous Medical/Surgical History Cardiac: ASHD/CAD Pulmonary: Emphysema/COPD Endocrine/Metabolic: Diabetes Comments: pacemaker. AFib. Obesity Previous Surgical History: pacemaker - Allergies Allergies: Allergies No Known Allergies Allergy (Verified 10/03/17 12:59) - Current Medications Current Medications: reviewed. per reconciliation - Physical Exam General Appearance: wdwn nad Vital Signs: Vital Signs 01/07/18 06:58 Temperature 97.9 F Pulse Rate 70 Respiratory 19 Rate Blood Pressure 115/84 O2 Sat by Pulse 98 Oximetry Mental Status: Alert & Oriented x3 Heart: WNL Lungs: WNL - {Optional Preform as Required} Abdomen: Other (obese) - Impression Impression: preoperative assessment Pt. Evaluated Today:Candidate for Anesthesia & Procedure: Yes - Date & Time Date: 01/07/18 Time: 08:16 Short Stay Discharge - Short Stay Discharge Admitting Diagnosis/Reason for Visit: MORBID (SEVERE) OBESITY DUE TO EXCESS CALORIES Disposition: HOME/ ROUTINE
[2018-01-07] MEDS ORDERED: Midazolam 2 MG/2 ML VIAL ONE (08:17)
[2018-01-07 09:04] VITALS: RESP 16
[2018-01-07 09:51] VITALS: BP 120/60; TEMP 97.2; O2SAT 97
== END 2018-01-07 09:45 | disposition home or self-care (01) ==
LOC: C.ENDO 06:02
PROVIDERS: ATTEND Internal Medicine Gastroenterology
DX: K29.60 Other gastritis without bleeding (principal); E66.01 Morbid (severe) obesity due to excess calories; K21.0 Gastro-esophageal reflux disease with esophagitis; B96.81 Helicobacter pylori [H. pylori] as the cause of diseases classified elsewhere
CPT/HCPCS: 43239; 82948; 88305; J2250; J2704; J7040

== ENCOUNTER 2018-05-13 04:40 | Inpatient (IN) | payer MEDICARE, MEDICAID ==
[2018-05-13 04:40] VITALS: BMI 44.4
[2018-05-13] MEDS ORDERED: Sodium Chloride 0.9% 1,000 ML IV ONE (05:29)
--- NOTE | 2018-05-13 05:32 | C.PDOC ---
History Of Present Illness 72 yo female BIBA for evaluation of LLQ pain associated with nausea, multiple episodes of non-bilious, non-bloody vomiting developed since 3AM. Pt admits, was seen by mir. early today, " checked pacemaker, works fine". Pt also reports, watery diarrhea for past months. Otherwise, pt denies fever, chills, recent illness or abx use, CP, SOB, dyspnea, diaphoresis, palpitation, hematemesis, melena, back pain, UTI sx. At the time of evaluation, pt appears in pain. Time Seen by Provider: 05/13/18 05:21 Chief Complaint (Nursing): Abdominal Pain History Per: Patient Past Medical History Reviewed: Historical Data, Nursing Documentation, Vital Signs Vital Signs: Last Vital Signs Temp 97.6 F 05/13/18 04:48 Pulse 70 05/13/18 04:48 Resp BP 145/67 05/13/18 04:48 Pulse Ox 97 05/13/18 04:48 - Medical History PMH: Anxiety, Arthritis, Asthma, CAD, CHF, Colonic Polyps, COPD, Diabetes, HTN, Hypercholesterolemia Denies: Chronic Kidney Disease Other PMH: Morbid obesity Surgical History: Pacemaker Family History: States: Unknown Family Hx - Social History Hx Tobacco Use: No Hx Alcohol Use: No Hx Substance Use: No - Immunization History Hx Tetanus Toxoid Vaccination: No Hx Influenza Vaccination: No Hx Pneumococcal Vaccination: No Physical Exam - Physical Exam Appears: Well, Non-toxic, No Acute Distress Skin: Normal Color, Warm, Dry, No Rash Head: Normacephalic Eye(s): bilateral: PERRL Nose: No Flaring, No Discharge Oral Mucosa: Moist Tongue: Normal Appearing Lips: Normal Appearing Throat: No Erythema, No Drooling Neck: Trachea Midline, Supple Cardiovascular: Rhythm Regular, No Murmur, No JVD Respiratory: No Decreased Breath Sounds, No Accessory Muscle Use, No Stridor, No Wheezing Gastrointestinal/Abdominal: Soft, Tenderness (LLQ), No Distention, No Guarding, No Rebound Back: No CVA Tenderness Extremity: Normal ROM, No Pedal Edema, No Calf Tenderness, No Deformity, No Swelling Neurological/Psych: Oriented x3, Normal Speech, Normal Motor, Normal Sensation, Normal Reflexes ED Course And Treatment - Laboratory Results Result Diagrams: 05/13/18 05:56 ECG: Interpreted By Me ECG Interpretation: Normal Interpretation Of ECG: paced@70/min O2 Sat by Pulse Oximetry: 97 Disposition - Disposition Disposition Time: 06:28 Condition: STABLE Forms: [facility] (Tanzanian) - Clinical Impression Clinical Impression: Abdominal pain, Nausea, Vomiting, Diarrhea Physician Patient Turnover Patient Signed Over To: Stanley Rhodes DO Handoff Comments: CT A/P, re-eval, dispo
[2018-05-13] MEDS ORDERED: Sodium Chloride 0.9% 1,000 ML ONE (05:56)
[2018-05-13 06:02] LABS: BASO # 0.1 K/uL (0.0-0.2); BASO % 0.4 % (0.0-2.0); EOS # 0.1 K/uL (0.0-0.7); EOS % 0.8 % (0.0-4.0); HEMOGLOBIN 12.7 g/dL (11.0-16.0); LYMPH # 0.9 K/uL (1.0-4.3); LYMPH % 5.4 % (20.0-40.0); MEAN CELL VOLUME 76.2 fL (81.0-99.0); MEAN CORPUSCULAR HEMOGLOBIN 25.2 pg (27.0-31.0); MEAN CORPUSCULAR HGB CONC 33.1 g/dL (33.0-37.0); MEAN PLATELET VOLUME 9.5 fL (7.2-11.7); MONO # 0.9 K/uL (0.0-0.8); MONO % 5.3 % (0.0-10.0); NEUT # 14.4 K/uL (1.8-7.0); NEUT % 88.1 % (50.0-75.0); PLATELET COUNT 263 K/uL (130-400); RBC 5.04 Mil/uL (3.80-5.20); RED CELL DISTRIBUTION WIDTH 15.7 % (11.5-14.5); WHITE BLOOD COUNT 16.4 K/uL (4.8-10.8)
[2018-05-13 06:08] LABS: INR 1.2; PROTHROMBIN TIME 13.6 SECONDS (9.7-12.2)
[2018-05-13 06:11] LABS: ALB/GLOB RATIO 1.3 (1.0-2.1); ALBUMIN 3.9 g/dL (3.5-5.0); ALT/SGPT 15 U/L (9-52); AST/SGOT 23 U/L (14-36); BLOOD UREA NITROGEN 25 mg/dL (7-17); CALCIUM 8.5 mg/dl (8.6-10.4); GFR NON-AFRICAN AMERICAN 55; LIPASE 161 U/L (23-300)
[2018-05-13] MEDS ORDERED: Potassium Chloride 20 mEq 100 ML ONE ×2 (06:37→10:37)
[2018-05-13] MEDS ORDERED: Iodixanol 320 MG/ML 100 ML BOTTLE IV ONE (07:09)
[2018-05-13 07:41] LABS: LYMPHOCYTE 9 % (20-40); MONOCYTE 3 % (0-10); NEUTROPHIL 88 % (50-75); PLATELET ESTIMATE NORMAL (NORMAL); TOTAL CELLS COUNTED 100
[2018-05-13 07:42] LABS: ANISOCYTOSIS SLIGHT; MICROCYTOSIS SLIGHT
--- NOTE | 2018-05-13 08:56 | CT ---
Date of service: 05/13/2018 PROCEDURE: CT Abdomen and Pelvis with contrast HISTORY: abd pain COMPARISON: Not available TECHNIQUE: Contrast dose: 100 mL Visipaque 320 Radiation dose: Total exam DLP = 1107.66 mGy-cm. This CT exam was performed using one or more of the following dose reduction techniques: Automated exposure control, adjustment of the mA and/or kV according to patient size, and/or use of iterative reconstruction technique. FINDINGS: LOWER THORAX: Permanent pacemaker. No infiltrate/effusion. Focal atelectasis or pleural thickening anterior left lower lobe. LIVER: Unremarkable. No gross lesion or ductal dilatation. GALLBLADDER AND BILE DUCTS: Unremarkable. PANCREAS: Unremarkable. No gross lesion or ductal dilatation. SPLEEN: Unremarkable. ADRENALS: 1.9 cm left adrenal mass common nonspecific. Statistically likely adenoma. KIDNEYS AND URETERS: Right upper pole cortical cyst, 2.2 cm. This measures 9 Hounsfield units. Right lower pole cortical cyst, 1.8 cm. This measures 12 Hounsfield units. No left renal mass. No calculus or hydronephrosis. VASCULATURE: Unremarkable. No aortic aneurysm. BOWEL: Unremarkable. No obstruction. No gross mural thickening. APPENDIX: Normal appendix. Incidentally noted appendicolith at the appendiceal base. PERITONEUM: Unremarkable. No free fluid. No free air. LYMPH NODES: Unremarkable. No enlarged lymph nodes. BLADDER: Unremarkable. REPRODUCTIVE: Normal postmenopausal uterus BONES: No acute fracture. OTHER FINDINGS: None. IMPRESSION: No acute abnormality. Minor findings as above. No acute inflammatory process or evidence of bowel obstruction. Probable left adrenal adenoma. Small right renal cysts.
--- NOTE | 2018-05-13 09:12 | RAD ---
Chest x-ray single frontal view History: Chest pain. COMPARISON: 10/03/1017 Findings: Moderate venous congestion. Patchy increased markings at the lung bases. Cardiomegaly. Calcification at the aortic knob. Left-sided pacemaker. Right paratracheal opacity may represent prominent vasculature. Degenerative changes in the spine and shoulders. Impression: Moderate venous congestion. Patchy increased markings at the lung bases. Cardiomegaly. Calcification at the aortic knob. Left-sided pacemaker. Right paratracheal opacity may represent prominent vasculature.
[2018-05-13 09:55] LABS: SQUAMOUS EPITHIAL 1 /hpf (0-5); URINE HYALINE CAST 0-2 /lpf (0-2)
[2018-05-13 09:56] LABS: URINE BILIRUBIN NEGATIVE (NEGATIVE); URINE BLOOD NEGATIVE (NEGATIVE); URINE CLARITY Clear (Clear); URINE COLOR Yellow (YELLOW); URINE GLUCOSE (UA) NORMAL (Normal); URINE LEUKOCYTE ESTERASE NEG Leu/uL (Negative); URINE PROTEIN NEGATIVE (NEGATIVE); URINE UROBILINOGEN NORMAL mg/dL (0.2-1.0)
[2018-05-13] MEDS ORDERED: Ciprofloxacin 400mg/200ml D5W 400 MG/200 ML BAG IVPB STA (10:02)
[2018-05-13] MEDS ORDERED: metroNIDAZOLE IV 500 mg/100 ml 500 MG/100 ML BAG IVPB STA (10:02)
[2018-05-13] MEDS ORDERED: Sodium Chloride 0.9% 1,000 ML IV SCH (10:15)
[2018-05-13] MEDS ORDERED: Ciprofloxacin 400mg/200ml D5W 400 MG/200 ML BAG IVPB ONE (11:28)
[2018-05-13] MEDS ORDERED: metroNIDAZOLE IV 500 mg/100 ml 500 MG/100 ML BAG ONE (11:28)
[2018-05-13 16:05] VITALS: RESP 20
--- NOTE | 2018-05-13 16:20 | CP.PCM.HP ---
History of Present Illness - History of Present Illness History of Present Illness: 72 year old female came to the ER co abd pain, and nausea and vomiting. Pt states she has had diarrhea for one month on and off. Yesterday she went ot see her cardiologyst belkysue was not feeling well and had some palptiations. PT s tatfatmata her pace maker was interrogated and found to be ok. Pt states she went home and started vomiting, having LLQ abd pain and feeling very weak. She decided to call the ambulance. PT states she has not had diarrhea so far today and is feeling a little better. Pt was hydrated in ER and given K supplement. PT denies chest pain. PMH: Nontoxic multinodular goiter Calculus of Kidneys back-pain Atrial FIB Pacemaker and ablation Asthma Diabetes HTN Hypercholesterolemia Anemia Sleep apnea Depression Polyosteoarthritis Surgical Hx: NONE Family Hx: Mother- DM Allergies: NKDA Social Hx: Neg. Smoker (Former) Neg. ETOH Neg. Drugs Medications: Pottassium 20MEQ Percocet 7.5mg-325mg Januvia 100mg Novolog Flexpen Levemir Flexpen Bydureon 2mg Present on Admission - Present on Admission Any Indicators Present on Admission: No History of DVT/PE: No History of Uncontrolled Diabetes: No Urinary Catheter: No Decubitus Ulcer Present: No Review of Systems - Constitutional Constitutional: Malaise. absent: Chills, Daytime Sleepiness, Fever, Night Sweats - EENT Eyes: absent: Blurred Vision Nose/Mouth/Throat: absent: Nasal Congestion - Cardiovascular Cardiovascular: Lightheadedness, Palpitations, Pedal Edema. absent: Chest Pain - Respiratory Respiratory: absent: Cough, Dyspnea, Hemoptysis - Gastrointestinal Gastrointestinal: Abdominal Pain, Diarrhea, Vomiting. absent: Melena - Genitourinary Genitourinary: absent: Freq UTI Past Patient History - Past Medical History & Family History Past Medical History?: Yes - Past Social History Smoking Status: Never Smoked - CARDIAC Hx Congestive Heart Failure: Yes Hx Hypercholesterolemia: Yes Hx Hypertension: Yes Hx Pacemaker: Yes - PULMONARY Hx Asthma: Yes Hx Chronic Obstructive Pulmonary Disease (COPD): Yes - NEUROLOGICAL Hx Neurological Disorder: Yes Hx Vertigo: Yes Other/Comment: SCIATICA RIGHT SIDE - HEENT Hx HEENT Problems: Yes Other/Comment: HX: THYROID NODULE - RENAL Hx Chronic Kidney Disease: No - ENDOCRINE/METABOLIC Hx Endocrine Disorders: Yes Hx Diabetes Mellitus Type 1: Yes Hx Diabetes Mellitus Type 2: Yes - HEMATOLOGICAL/ONCOLOGICAL Hx Blood Disorders: No - INTEGUMENTARY Hx Dermatological Problems: No - MUSCULOSKELETAL/RHEUMATOLOGICAL Hx Arthritis: Yes - GASTROINTESTINAL Hx Gastrointestinal Disorders: Yes Hx Hemorrhoids: Yes - GENITOURINARY/GYNECOLOGICAL Hx Genitourinary Disorders: No - PSYCHIATRIC Hx Anxiety: Yes Hx Substance Use: No - SURGICAL HISTORY Hx Surgeries: Yes Hx Section: Yes (X1) Other/Comment: HX: COLON POLYPECTOMY, THRYROID BIOPSY - ANESTHESIA Hx Anesthesia: Yes Hx Anesthesia Reactions: No Hx Malignant Hyperthermia: No Meds Allergies/Adverse Reactions: Allergies Allergy/AdvReac Type Severity Reaction Status Date / Time No Known Allergies Allergy Verified 10/03/17 12:59 Physical Exam - Constitutional Appears: Non-toxic - Eye Exam Eye Exam: Normal appearance - ENT Exam ENT Exam: Mucous Membranes Dry - Neck Exam Neck exam: Positive for: Normal Inspection - Respiratory Exam Respiratory Exam: Clear to Auscultation Bilateral, NORMAL BREATHING PATTERN. absent: Rales - Cardiovascular Exam Cardiovascular Exam: REGULAR RHYTHM, RRR, +S1, +S2. absent: JVD - Extremities Exam Extremities exam: Positive for: joint swelling - Psychiatric Exam Psychiatric exam: Normal Affect - Skin Skin Exam: Intact (abd; soft, lower left and mid abd tendernss, but no gurading and no masses) Results - Vital Signs Recent Vital Signs: Last Vital Signs Temp 97.5 F L 05/13/18 16:00 Pulse 70 05/13/18 16:00 Resp 20 05/13/18 16:00 BP 140/74 05/13/18 16:00 Pulse Ox 98 05/13/18 16:00 - Labs Result Diagrams: 05/13/18 05:56 05/13/18 05:56 Labs: Laboratory Results - last 24 hr 05/13/18 05/13/18 05/13/18 05:03 05:56 05:56 WBC 16.4 H D RBC 5.04 Hgb 12.7 Hct 38.4 MCV 76.2 L D MCH 25.2 L MCHC 33.1 RDW 15.7 H Plt Count 263 MPV 9.5 Neut % (Auto) 88.1 H Lymph % (Auto) 5.4 L [place] % (Auto) 5.3 Eos % (Auto) 0.8 Baso % (Auto) 0.4 Neut # (Auto) 14.4 H Lymph # (Auto) 0.9 L [place] # (Auto) 0.9 H Eos # (Auto) 0.1 Baso # (Auto) 0.1 Neutrophils % (Manual) 88 H Lymphocytes % (Manual) 9 L Monocytes % (Manual) 3 Platelet Estimate Normal Anisocytosis (manual) Slight Microcytosis (manual) Slight PT 13.6 H INR 1.2 APTT 43 H Sodium Potassium Chloride Carbon Dioxide Anion Gap BUN Creatinine Est GFR ( Amer) Est GFR (Non-Af Amer) POC Glucose (mg/dL) 134 H Random Glucose Calcium Total Bilirubin AST ALT Alkaline Phosphatase Troponin I Total Protein Albumin Globulin Albumin/Globulin Ratio Lipase Urine Color Urine Clarity Urine pH Ur Specific [place] Urine Protein Urine Glucose (UA) Urine Ketones Urine Blood Urine Nitrate Urine Bilirubin Urine Urobilinogen Ur Leukocyte Esterase Urine WBC (Auto) Urine RBC (Auto) Ur Squamous Epith Cells Hyaline Casts 05/13/18 05/13/18 05/13/18 05:56 09:32 11:12 WBC RBC Hgb Hct MCV MCH MCHC RDW Plt Count MPV Neut % (Auto) Lymph % (Auto) [place] % (Auto) Eos % (Auto) Baso % (Auto) Neut # (Auto) Lymph # (Auto) [place] # (Auto) Eos # (Auto) Baso # (Auto) Neutrophils % (Manual) Lymphocytes % (Manual) Monocytes % (Manual) Platelet Estimate Anisocytosis (manual) Microcytosis (manual) PT INR APTT Sodium 142 Potassium 2.9 L Chloride 98 Carbon Dioxide 28 Anion Gap 18 BUN 25 H Creatinine 1.0 Est GFR ( Amer) > 60 Est GFR (Non-Af Amer) 55 POC Glucose (mg/dL) 98 Random Glucose 151 H Calcium 8.5 L Total Bilirubin 0.4 AST 23 ALT 15 Alkaline Phosphatase 81 Troponin I 0.0150 Total Protein 7.0 Albumin 3.9 Globulin 3.1 Albumin/Globulin Ratio 1.3 Lipase 161 Urine Color Yellow Urine Clarity Clear Urine pH 5.0 Ur Specific [place] 1.036 H Urine Protein Negative Urine Glucose (UA) Normal Urine Ketones Negative Urine Blood Negative Urine Nitrate Negative Urine Bilirubin Negative Urine Urobilinogen Normal Ur Leukocyte Esterase Neg Urine WBC (Auto) 1 Urine RBC (Auto) < 1 Ur Squamous Epith Cells 1 Hyaline Casts 0-2 Assessment & Plan - Assessment and Plan (Free Text) Assessment: Diarrhea dehydration hypokalemia leukocytosis admit fluids cutlure ro c dif emperic flagyl DM HTN Morbid obesity chronic pain cont meds hold metformin and some diabetic meds util eating well cont bp meds and cardiac meds with close monitoring
[2018-05-13] MEDS ORDERED: Albuterol HFA 90 mcg/actuation (8 g) IH PRN (17:15)
[2018-05-13] MEDS: Potassium Chloride 20 MEQ in Sodium Chloride 0.45% 1,000 ML IV SCH (18:00)
[2018-05-13] MEDS: (Novolin R) Insulin Human Regular 100 units/ml vial SC SCH (21:36)
[2018-05-13] MEDS: Oxycodone/Acetaminophen 5/325 mg Tab PO PRN (22:43)
[2018-05-14] MEDS: (Novolin R) Insulin Human Regular 100 units/ml vial SC SCH ×4 (07:34→21:19)
[2018-05-14 07:46] VITALS: PULSE 70
[2018-05-14 08:16] LABS: HEMOGLOBIN 11.3 g/dL (11.0-16.0); MEAN CELL VOLUME 76.4 fL (81.0-99.0); MEAN CORPUSCULAR HGB CONC 32.8 g/dL (33.0-37.0); MEAN PLATELET VOLUME 9.4 fL (7.2-11.7); RBC 4.53 Mil/uL (3.80-5.20); RED CELL DISTRIBUTION WIDTH 15.4 % (11.5-14.5)
[2018-05-14 08:18] LABS: WHITE BLOOD COUNT 7.4 K/uL (4.8-10.8)
[2018-05-14 08:49] LABS: BLOOD UREA NITROGEN 13 mg/dL (7-17); CALCIUM 7.7 mg/dl (8.6-10.4); GFR NON-AFRICAN AMERICAN > 60
[2018-05-14] MEDS ORDERED: Mometasone 110 mcg/puff-30 puff Inh INH SCH (10:00)
[2018-05-14] MEDS ORDERED: EXENATIDE MICROSPHERES SQ SCH (10:00)
[2018-05-14] MEDS: Oxycodone/Acetaminophen 5/325 mg Tab PO PRN (10:43)
[2018-05-14] MEDS: Pantoprazole 40 mg EC Tab PO SCH (10:47)
[2018-05-14] MEDS: Omega-3-Acid Ethyl Esters 1 GM Cap PO SCH (10:47)
[2018-05-14] MEDS: Potassium Chloride 20 MEQ in Sodium Chloride 0.45% 1,000 ML IV SCH (10:48)
[2018-05-14] MEDS ORDERED: Potassium Chloride 20 mEq ER Tab PO ONE (12:45)
[2018-05-14] MEDS ORDERED: (Novolog) Insulin Aspart, Recombinant 100 u/ml 10 ml vial SC SCH (16:30)
--- NOTE | 2018-05-14 17:10 | CP.PCM.PN ---
Subjective - Date & Time of Evaluation Date of Evaluation: 05/14/18 Time of Evaluation: 17:10 - Subjective Subjective: Pt states she has felt nausus today , but no bm since came to the hosptial no abd pain no chest pain Objective - Vital Signs/Intake and Output Vital Signs (last 24 hours): Temp Pulse Resp BP Pulse Ox 97.5 F L 70 20 135/74 97 05/14/18 15:00 05/14/18 15:00 05/14/18 15:00 05/14/18 15:00 05/14/18 15:00 - Medications Medications: Current Medications Albuterol (Ventolin Hfa 90 Mcg/Actuation (8 G)) 2 puff IH RQ4 PRN PRN Reason: Shortness of Breath Alprazolam (Xanax) 0.25 mg PO Q24H COUNTS INCLUDE 234 BEDS AT THE [facility] Stop: 05/21/18 16:01 Carvedilol (Coreg) 25 mg PO BID COUNTS INCLUDE 234 BEDS AT THE [facility] Last Admin: 05/14/18 10:47 Dose: 25 mg Dabigatran (Pradaxa) 150 mg PO BID COUNTS INCLUDE 234 BEDS AT THE [facility] Last Admin: 05/14/18 10:47 Dose: 150 mg Diltiazem HCl (Cardizem) 120 mg PO DAILY COUNTS INCLUDE 234 BEDS AT THE [facility] Last Admin: 05/14/18 10:47 Dose: 120 mg Home Med (Exenatide Microspheres [Bydureon]) 1 unit SQ DAILY COUNTS INCLUDE 234 BEDS AT THE [facility] Potassium Chloride (Potassium Chloride 20 Meq/100 Ml) 20 meq in 100 mls @ 50 mls/hr IVPB ONCE ONE Stop: 05/14/18 19:02 Influenza Virus Vaccine (Fluzone Quad [id number]) 60 mcg IM .ONCE ONE Stop: 05/15/18 10:01 Insulin Aspart (Novolog) 5 unit SC ACS COUNTS INCLUDE 234 BEDS AT THE [facility] Insulin Human Regular (Novolin R) 0 unit SC ACHS COUNTS INCLUDE 234 BEDS AT THE [facility]; Protocol Last Admin: 05/14/18 16:44 Dose: Not Given Metoclopramide HCl (Reglan) 10 mg PO TID COUNTS INCLUDE 234 BEDS AT THE [facility] Metronidazole (Flagyl) 500 mg PO Q8H COUNTS INCLUDE 234 BEDS AT THE [facility]; Protocol Last Admin: 05/14/18 14:13 Dose: 500 mg Mometasone Furoate (Asmanex Twisthaler 110 Mcg) 1 puff INH RQD COUNTS INCLUDE 234 BEDS AT THE [facility] Montelukast Sodium (Singulair) 10 mg PO DAILY COUNTS INCLUDE 234 BEDS AT THE [facility] Last Admin: 05/14/18 10:47 Dose: 10 mg [id number]-[id number] Ethyl Esters (Lovaza) 1 gm PO DAILY COUNTS INCLUDE 234 BEDS AT THE [facility] Last Admin: 05/14/18 10:47 Dose: 1 gm Ondansetron HCl (Zofran Inj) 4 mg IVP Q4 PRN PRN Reason: Nausea/Vomiting Oxycodone/Acetaminophen (Percocet 5/325 Mg Tab) 1 tab PO Q6H PRN PRN Reason: Muscle spasm Stop: 05/16/18 17:35 Last Admin: 05/14/18 10:43 Dose: 1 tab Pantoprazole Sodium (Protonix Ec Tab) 40 mg PO DAILY COUNTS INCLUDE 234 BEDS AT THE [facility] Last Admin: 05/14/18 10:47 Dose: 40 mg Rosuvastatin Calcium (Crestor) 40 mg PO HS COUNTS INCLUDE 234 BEDS AT THE [facility] Last Admin: 05/13/18 21:42 Dose: 40 mg - Labs Labs: 05/14/18 08:00 05/14/18 08:00 PT 13.6 SECONDS (9.7-12.2) H 05/13/18 05:56 INR 1.2 05/13/18 05:56 APTT 43 SECONDS (21-34) H 05/13/18 05:56 - Constitutional Appears: Non-toxic - Eye Exam Eye Exam: Normal appearance - ENT Exam ENT Exam: Mucous Membranes Moist - Respiratory Exam Respiratory Exam: Clear to Ausculation Bilateral - Cardiovascular Exam Cardiovascular Exam: RRR, +S1, +S2. absent: JVD - GI/Abdominal Exam GI & Abdominal Exam: Soft, Normal Bowel Sounds. absent: Tenderness Assessment and Plan - Assessment and Plan (Free Text) Assessment: hypokalemia; better replace k diarrhea; resolved has not been able to check stools for c diff because no bm since admission Nause added reglan possible dc home tomorrow if better wbc is down dc fluids
[2018-05-15] MEDS: Oxycodone/Acetaminophen 5/325 mg Tab PO PRN (05:51)
[2018-05-15 07:44] LABS: BASO % 0.6 % (0.0-2.0); EOS # 0.2 K/uL (0.0-0.7); HEMOGLOBIN 11.2 g/dL (11.0-16.0); LYMPH # 1.4 K/uL (1.0-4.3); LYMPH % 17.1 % (20.0-40.0); MEAN CELL VOLUME 77.1 fL (81.0-99.0); MEAN CORPUSCULAR HEMOGLOBIN 25.6 pg (27.0-31.0); MEAN CORPUSCULAR HGB CONC 33.3 g/dL (33.0-37.0); MEAN PLATELET VOLUME 9.6 fL (7.2-11.7); MONO # 0.5 K/uL (0.0-0.8); MONO % 6.1 % (0.0-10.0); NEUT # 5.8 K/uL (1.8-7.0); NEUT % 73.2 % (50.0-75.0); RBC 4.38 Mil/uL (3.80-5.20); RED CELL DISTRIBUTION WIDTH 15.8 % (11.5-14.5)
[2018-05-15 07:58] VITALS: BP 131/69; TEMP 98.2; O2SAT 95
[2018-05-15 08:05] LABS: ALB/GLOB RATIO 1.1 (1.0-2.1); ALBUMIN 3.1 g/dL (3.5-5.0); ALT/SGPT 16 U/L (9-52); AST/SGOT 14 U/L (14-36); BLOOD UREA NITROGEN 13 mg/dL (7-17); GFR NON-AFRICAN AMERICAN > 60
[2018-05-15] MEDS: (Novolin R) Insulin Human Regular 100 units/ml vial SC SCH ×2 (08:32→12:32)
[2018-05-15] MEDS ORDERED: Influenza Vaccine 60 MCG/0.5 ML SYR (3 yr & up) IM ONE ×2 (10:00→11:15)
[2018-05-15] MEDS ORDERED: Potassium Chloride 20 mEq ER Tab PO ONE (10:00)
--- NOTE | 2018-05-15 10:49 | CP.PCM.PN ---
Subjective - Date & Time of Evaluation Date of Evaluation: 05/15/18 Time of Evaluation: 10:49 Objective - Vital Signs/Intake and Output Vital Signs (last 24 hours): Temp Pulse Resp BP Pulse Ox 98.2 F 70 20 131/69 95 05/15/18 07:57 05/15/18 07:57 05/15/18 07:57 05/15/18 07:57 05/15/18 07:57 - Medications Medications: Current Medications Albuterol (Ventolin Hfa 90 Mcg/Actuation (8 G)) 2 puff IH RQ4 PRN PRN Reason: Shortness of Breath Alprazolam (Xanax) 0.25 mg PO Q24H [facility] Stop: 05/21/18 16:01 Last Admin: 05/14/18 17:59 Dose: 0.25 mg Carvedilol (Coreg) 25 mg PO BID [facility] Last Admin: 05/14/18 17:59 Dose: 25 mg Dabigatran (Pradaxa) 150 mg PO BID [facility] Last Admin: 05/14/18 17:59 Dose: 150 mg Diltiazem HCl (Cardizem) 120 mg PO DAILY [facility] Last Admin: 05/14/18 10:47 Dose: 120 mg Home Med (Exenatide Microspheres [Bydureon]) 1 unit SQ DAILY [facility] Insulin Aspart (Novolog) 5 unit SC ACS [facility] Last Admin: 05/14/18 18:01 Dose: Not Given Insulin Human Regular (Novolin R) 0 unit SC ACHS [facility]; Protocol Last Admin: 05/15/18 08:32 Dose: 2 units Metoclopramide HCl (Reglan) 10 mg PO TID [facility] Last Admin: 05/14/18 21:19 Dose: 10 mg Metronidazole (Flagyl) 500 mg PO Q8H [facility]; Protocol Last Admin: 05/15/18 05:48 Dose: 500 mg Mometasone Furoate (Asmanex Twisthaler 110 Mcg) 1 puff INH RQD [facility] Montelukast Sodium (Singulair) 10 mg PO DAILY [facility] Last Admin: 05/14/18 10:47 Dose: 10 mg Normw-6-Irij Ethyl Esters (Lovaza) 1 gm PO DAILY [facility] Last Admin: 05/14/18 10:47 Dose: 1 gm Ondansetron HCl (Zofran Inj) 4 mg IVP Q4 PRN PRN Reason: Nausea/Vomiting Oxycodone/Acetaminophen (Percocet 5/325 Mg Tab) 1 tab PO Q6H PRN PRN Reason: Muscle spasm Stop: 05/16/18 17:35 Last Admin: 05/15/18 05:51 Dose: 1 tab Pantoprazole Sodium (Protonix Ec Tab) 40 mg PO DAILY [facility] Last Admin: 05/14/18 10:47 Dose: 40 mg Rosuvastatin Calcium (Crestor) 40 mg PO HS [facility] Last Admin: 05/14/18 21:19 Dose: 40 mg - Labs Labs: 05/15/18 07:37 05/15/18 07:37 PT 13.6 SECONDS (9.7-12.2) H 05/13/18 05:56 INR 1.2 05/13/18 05:56 APTT 43 SECONDS (21-34) H 05/13/18 05:56 Assessment and Plan - Assessment and Plan (Free Text) Assessment: FOLLOW UP WITH DR BREAUX AT HER OFFICE---CALL FOR APPOINTMENT CONTINUE HOME MEDICATION NEW PRESCRIPTION GIVEN FLAGYL 500 MG PO Q8H FOR 5 DAYS ACTIVITY TOLERATED CALL DR BREAUX OR GO TO THE EMERGENCY ROOM ID SYMPTOME RETURN OR WORSENING
[2018-05-15] MEDS: Omega-3-Acid Ethyl Esters 1 GM Cap PO SCH (10:51)
[2018-05-15] MEDS: Pantoprazole 40 mg EC Tab PO SCH (10:52)
--- NOTE | 2018-05-15 15:01 | CARD ---
APPROVED REPORT Date of service: 05/13/2018 EKG Measurement Heart [id number] <Conclusion> Ventricular-paced rhythm Abnormal ECG
--- NOTE | 2018-05-15 16:06 | CP.PCM.DIS ---
Provider - Provider Date of Admission: 05/13/18 10:03 Attending physician: Kenia Tucker MD Time Spent in preparation of Discharge (in minutes): 20 Hospital Course - Lab Results Lab Results: Micro Results 05/13/18 05:30 Urine Urine Culture - Final No Growth (<1,000 CFU/ML) 05/13/18 10:40 Blood Blood Culture - Preliminary NO GROWTH AFTER 24 HOURS 05/13/18 11:10 Blood Blood Culture - Preliminary NO GROWTH AFTER 24 HOURS Most Recent Lab Values WBC 8.0 K/uL (4.8-10.8) 05/15/18 07:37 RBC 4.38 Mil/uL (3.80-5.20) 05/15/18 07:37 Hgb 11.2 g/dL (11.0-16.0) 05/15/18 07:37 Hct 33.8 % (34.0-47.0) L 05/15/18 07:37 MCV 77.1 fL (81.0-99.0) L 05/15/18 07:37 MCH 25.6 pg (27.0-31.0) L 05/15/18 07:37 MCHC 33.3 g/dL (33.0-37.0) 05/15/18 07:37 RDW 15.8 % (11.5-14.5) H 05/15/18 07:37 Plt Count 238 K/uL (130-400) 05/15/18 07:37 MPV 9.6 fL (7.2-11.7) 05/15/18 07:37 Neut % (Auto) 73.2 % (50.0-75.0) 05/15/18 07:37 Lymph % (Auto) 17.1 % (20.0-40.0) L 05/15/18 07:37 [place] % (Auto) 6.1 % (0.0-10.0) 05/15/18 07:37 Eos % (Auto) 3.0 % (0.0-4.0) 05/15/18 07:37 Baso % (Auto) 0.6 % (0.0-2.0) 05/15/18 07:37 Neut # (Auto) 5.8 K/uL (1.8-7.0) 05/15/18 07:37 Lymph # (Auto) 1.4 K/uL (1.0-4.3) 05/15/18 07:37 Frontier # (Auto) 0.5 K/uL (0.0-0.8) 05/15/18 07:37 Eos # (Auto) 0.2 K/uL (0.0-0.7) 05/15/18 07:37 Baso # (Auto) 0.0 K/uL (0.0-0.2) 05/15/18 07:37 Neutrophils % (Manual) 88 % (50-75) H 05/13/18 05:56 Lymphocytes % (Manual) 9 % (20-40) L 05/13/18 05:56 Monocytes % (Manual) 3 % (0-10) 05/13/18 05:56 Platelet Estimate Normal (NORMAL) 05/13/18 05:56 Anisocytosis (manual) Slight 05/13/18 05:56 Microcytosis (manual) Slight 05/13/18 05:56 PT 13.6 SECONDS (9.7-12.2) H 05/13/18 05:56 INR 1.2 05/13/18 05:56 APTT 43 SECONDS (21-34) H 05/13/18 05:56 Sodium 140 mmol/L (132-148) 05/15/18 07:37 Potassium 3.5 mmol/L (3.6-5.2) L 05/15/18 07:37 Chloride 103 mmol/L (98-107) 05/15/18 07:37 Carbon Dioxide 25 mmol/L (22-30) 05/15/18 07:37 Anion Gap 15 (10-20) 05/15/18 07:37 BUN 13 mg/dL (7-17) 05/15/18 07:37 Creatinine 0.8 mg/dL (0.7-1.2) 05/15/18 07:37 Est GFR ( Amer) > 60 05/15/18 07:37 Est GFR (Non-Af Amer) > 60 05/15/18 07:37 POC Glucose (mg/dL) 191 mg/dL (65-110) H 05/15/18 11:32 Random Glucose 173 mg/dL (65-105) H 05/15/18 07:37 Calcium 8.0 mg/dl (8.6-10.4) L 05/15/18 07:37 Magnesium 1.9 mg/dL (1.6-2.3) 05/14/18 08:00 Total Bilirubin 0.2 mg/dL (0.2-1.3) 05/15/18 07:37 AST 14 U/L (14-36) D 05/15/18 07:37 ALT 16 U/L (9-52) 05/15/18 07:37 Alkaline Phosphatase 62 U/L (38-126) 05/15/18 07:37 Troponin I 0.0150 ng/mL (0.00-0.120) 05/13/18 05:56 Total Protein 5.8 g/dL (6.3-8.3) L 05/15/18 07:37 Albumin 3.1 g/dL (3.5-5.0) L D 05/15/18 07:37 Globulin 2.7 gm/dL (2.2-3.9) 05/15/18 07:37 Albumin/Globulin Ratio 1.1 (1.0-2.1) 05/15/18 07:37 Lipase 161 U/L (23-300) 05/13/18 05:56 Urine Color Yellow (YELLOW) 05/13/18 09:32 Urine Clarity Clear (Clear) 05/13/18 09:32 Urine pH 5.0 (5.0-8.0) 05/13/18 09:32 Ur Specific [place] 1.036 (1.003-1.030) H 05/13/18 09:32 Urine Protein Negative mg/dL (NEGATIVE) 05/13/18 09:32 Urine Glucose (UA) Normal mg/dL (Normal) 05/13/18 09:32 Urine Ketones Negative mg/dL (NEGATIVE) 05/13/18 09:32 Urine Blood Negative (NEGATIVE) 05/13/18 09:32 Urine Nitrate Negative (NEGATIVE) 05/13/18 09:32 Urine Bilirubin Negative (NEGATIVE) 05/13/18 09:32 Urine Urobilinogen Normal mg/dL (0.2-1.0) 05/13/18 09:32 Ur Leukocyte Esterase Neg Katelyn/uL (Negative) 05/13/18 09:32 Urine WBC (Auto) 1 /hpf (0-5) 10/10/18 09:32 Urine RBC (Auto) < 1 /hpf (0-3) 05/13/18 09:32 Ur Squamous Epith Cells 1 /hpf (0-5) 05/13/18 09:32 Hyaline Casts 0-2 /lpf (0-2) 05/13/18 09:32 - Hospital Course Hospital Course: Pt was admited with co diarrhea for one month pt was admited for eval as she also had abdominal pain and hypokalemia pt had a negative ct of abdomen was hydrated, K was replaced and treated emperically with flagyl shortly after admission her diarrhea resolved, she became constipated and we were not even able to collect a stool Her wbc came down to zelalem, she was eating well and was sent home with close outpatient follow up. Discharge Exam - Head Exam Head Exam: NORMAL INSPECTION - ENT Exam ENT Exam: Mucous Membranes Moist - Respiratory Exam Respiratory Exam: Clear to PA & Lateral Discharge Plan - Discharge Medications Prescriptions: metroNIDAZOLE [Flagyl] 500 mg PO Q8H 5 Days tab - Follow Up Plan Instructions: Heart Failure, Adult, Dehydration, Adult (DC), Hypokalemia (DC), Acute Abdominal Pain (DC) Additional Instructions: FOLLOW UP WITH DR TUCKER AT HER OFFICE---CALL FOR APPOINTMENT CONTINUE HOME MEDICATION NEW PRESCRIPTION GIVEN FLAGYL 500 MG PO Q8H FOR 5 DAYS ACTIVITY TOLERATED CALL DR TUCKER OR GO TO THE EMERGENCY ROOM ID SYMPTOME RETURN OR WORSENING Referrals: Kenia Tucker MD [Staff Provider] -
== END 2018-05-15 14:25 | disposition home or self-care (01) | DRG 641 ==
LOC: C.ER 04:40 → C.9E 10:03 → C.5S 14:46
PROVIDERS: ADMIT Internal Medicine; ATTEND Internal Medicine
DX: E87.6 Hypokalemia (principal); Z68.41 Body mass index [BMI] 40.0-44.9, adult; R19.7 Diarrhea, unspecified; E86.0 Dehydration; E78.00 Pure hypercholesterolemia, unspecified; G47.30 Sleep apnea, unspecified; G89.29 Other chronic pain; I11.0 Hypertensive heart disease with heart failure; I25.10 Atherosclerotic heart disease of native coronary artery without angina pectoris; I48.91 Unspecified atrial fibrillation; I50.9 Heart failure, unspecified; J44.9 Chronic obstructive pulmonary disease, unspecified; M15.9 Polyosteoarthritis, unspecified; R11.10 Vomiting, unspecified; R53.1 Weakness; E04.2 Nontoxic multinodular goiter; E66.01 Morbid (severe) obesity due to excess calories; D72.829 Elevated white blood cell count, unspecified; Z95.0 Presence of cardiac pacemaker; E11.9 Type 2 diabetes mellitus without complications; Z87.891 Personal history of nicotine dependence

== ENCOUNTER 2018-05-16 09:19 | Inpatient (IN) | payer MEDICARE, MEDICAID ==
[2018-05-16 09:19] VITALS: BMI 44.4
[2018-05-16] MEDS ORDERED: Albuterol-Ipratrop 3 mg / 0.5 (3 ml) UD INH STA (10:10)
--- NOTE | 2018-05-16 10:24 | C.PDOC ---
History Of Present Illness 72 year old female presents to the emergency department status-post being discharged yesterday. She complains of shortness of breath, and cough with yellow sputum. She denies abdominal pain. C/o chest pain., unable to describe. Time Seen by Provider: 05/16/18 09:41 Chief Complaint (Nursing): Shortness Of Breath History Per: Patient History/Exam Limitations: no limitations Onset/Duration Of Symptoms: Days (1) Current Symptoms Are (Timing): Still Present Quality: "Pain" Current Respiratory Medications: Albuterol Associated Symptoms: Chest Pain, Productive Cough (yellow sputum), Other (shortness of breath) Past Medical History Reviewed: Historical Data, Nursing Documentation, Vital Signs Vital Signs: Last Vital Signs Temp 98.4 F 05/16/18 09:32 Pulse 70 05/16/18 09:32 Resp 20 05/16/18 09:32 BP 103/62 05/16/18 09:32 Pulse Ox 99 05/16/18 09:43 - Medical History PMH: Anxiety, Arthritis, Asthma, CAD, CHF, Colonic Polyps, COPD, Diabetes, HTN, Hypercholesterolemia Denies: Chronic Kidney Disease Surgical History: Pacemaker Family History: States: No Known Family Hx - Social History Hx Tobacco Use: No Hx Alcohol Use: No Hx Substance Use: No - Immunization History Hx Tetanus Toxoid Vaccination: No Hx Influenza Vaccination: No Hx Pneumococcal Vaccination: No Review Of Systems Cardiovascular: Positive for: Chest Pain Respiratory: Positive for: Cough, Shortness of Breath, Sputum (yellow) Physical Exam - Physical Exam Appears: Non-toxic, No Acute Distress, Other (speaking full sentences) Skin: Warm, Dry Head: Atraumatic, Normacephalic Eye(s): bilateral: Normal Inspection Neck: Normal, Supple Chest: Symmetrical, No Tenderness Cardiovascular: Rhythm Regular, No Murmur Respiratory: Other (bilateral basilar crackles) Gastrointestinal/Abdominal: Normal Exam, Soft, No Tenderness, No Guarding, No Rebound, Other (morbidly obese) Extremity: Swelling (bilateral pitting edema), Other (feel cold to touch) Pulses: Left Dorsalis Pedis: Decreased, Right Dorsalis Pedis: Decreased ED Course And Treatment - Laboratory Results Result Diagrams: 05/16/18 11:46 05/16/18 10:46 ECG Rhythm: V Paced ECG Interpretation: Abnormal Rate From EC O2 Sat by Pulse Oximetry: 99 (RA) Pulse Ox Interpretation: Normal - Other Rad CXR X-Ray: Viewed By Me, Read By Radiologist Interpretation: HISTORY: SOB. COMPARISON: Chest x-ray performed 05/13/18. TECHNIQUE: Chest PA and lateral. FINDINGS: Examination limited by habitus. LUNGS: Moderate to severe interstitial prominence may reflect infection or edema. Please note that chest x-ray has limited sensitivity for the detection of pulmonary masses. PLEURA: No significant pleural effusion identified. No definite pneumothorax . CARDIOVASCULAR: Cardiomegaly. Single lead left-sided pacemaker. Atherosclerotic calcifications of the aortic knob. OSSEOUS STRUCTURES: Degenerative changes. VISUALIZED UPPER ABDOMEN: Unremarkable. OTHER FINDINGS: None. IMPRESSION: Moderate to severe interstitial prominence may reflect infection or edema. Cardiomegaly. Single lead pacemaker. Progress Note: Plan: EKG. BNP. CMP. Troponin. CBC. CXR. Duoneb 3ml INH. Urinalysis Medical Decision Making Medical Decision Making: pt with pvc on xray. bibasliar crackles, and elevated bnp. discussed with Dr Tucker, will admot to her service, give iv lasix, get consult from Dr Ortiz Disposition Discussed With .: Kenia Tucker Doctor Will See Patient In The: Hospital - Disposition Disposition: HOSPITALIZED Disposition Time: 11:58 Condition: GOOD - Clinical Impression Clinical Impression: CHF exacerbation, Chest pain - PA / CORRECTIONS COUNSELOR / Resident Statement MD/DO has reviewed & agrees with the documentation as recorded. - Scribe Statement The provider has reviewed the documentation as recorded by the Scribe (Eduard Candace) All medical record entries made by the Scribe were at my direction and personally dictated by me. I have reviewed the chart and agree that the record accurately reflects my personal performance of the history, physical exam, medical decision making, and the department course for this patient. I have also personally directed, reviewed, and agree with the discharge instructions and disposition.
[2018-05-16] MEDS ORDERED: Albuterol-Ipratrop 3 mg / 0.5 (3 ml) UD ONE (10:45)
[2018-05-16 11:38] LABS: ALB/GLOB RATIO 1.2 (1.0-2.1); ALBUMIN 3.9 g/dL (3.5-5.0); ALT/SGPT 21 U/L (9-52); AST/SGOT 40 U/L (14-36); BLOOD UREA NITROGEN 13 mg/dL (7-17); CALCIUM 8.8 mg/dl (8.6-10.4); GFR NON-AFRICAN AMERICAN > 60
[2018-05-16 11:44] LABS: B-TYPE NATRIURETIC PEPTIDE 2310 pg/mL (0-900)
[2018-05-16 12:01] LABS: BASO % 0.3 % (0.0-2.0); EOS # 0.1 K/uL (0.0-0.7); EOS % 0.6 % (0.0-4.0); LYMPH # 1.4 K/uL (1.0-4.3); LYMPH % 9.6 % (20.0-40.0); MEAN CELL VOLUME 78.4 fL (81.0-99.0); MEAN CORPUSCULAR HEMOGLOBIN 25.5 pg (27.0-31.0); MEAN CORPUSCULAR HGB CONC 32.5 g/dL (33.0-37.0); MEAN PLATELET VOLUME 9.8 fL (7.2-11.7); MONO # 0.5 K/uL (0.0-0.8); MONO % 3.4 % (0.0-10.0); NEUT # 12.2 K/uL (1.8-7.0); NEUT % 86.1 % (50.0-75.0); PLATELET COUNT 265 K/uL (130-400); RBC 5.26 Mil/uL (3.80-5.20); RED CELL DISTRIBUTION WIDTH 16.3 % (11.5-14.5)
--- NOTE | 2018-05-16 12:02 | RAD ---
HISTORY: SOB COMPARISON: Chest x-ray performed 05/13/18 TECHNIQUE: Chest PA and lateral FINDINGS: Examination limited by habitus. LUNGS: Moderate to severe interstitial prominence may reflect infection or edema. Please note that chest x-ray has limited sensitivity for the detection of pulmonary masses. PLEURA: No significant pleural effusion identified. No definite pneumothorax . CARDIOVASCULAR: Cardiomegaly. Single lead left-sided pacemaker. Atherosclerotic calcifications of the aortic knob. OSSEOUS STRUCTURES: Degenerative changes. VISUALIZED UPPER ABDOMEN: Unremarkable. OTHER FINDINGS: None. IMPRESSION: Moderate to severe interstitial prominence may reflect infection or edema. Cardiomegaly. Single lead pacemaker.
[2018-05-16 12:06] LABS: HEMOGLOBIN 13.4 g/dL (11.0-16.0); WHITE BLOOD COUNT 14.2 K/uL (4.8-10.8)
[2018-05-16 12:57] LABS: EOSINOPHIL 1 % (0-4); LYMPHOCYTE 13 % (20-40); MONOCYTE 1 % (0-10); NEUTROPHIL 85 % (50-75); TOTAL CELLS COUNTED 100
[2018-05-16 13:00] LABS: ANISOCYTOSIS SLIGHT; LARGE PLATELETS PRESENT; PLATELET ESTIMATE NORMAL (NORMAL)
[2018-05-16] MEDS ORDERED: Albuterol 0.083% Inhal Sol (2.5 mg/3 mL) UD INH STA (19:43)
--- NOTE | 2018-05-16 20:02 | CP.PCM.HP ---
History of Present Illness - History of Present Illness History of Present Illness: sob PT is a 72 year old female recently admittd to the hospital with diarrhea and hypokalemia. She states she was feeling well but once home developed what she described was an "asthma" attack. She states she developed sob and was wheezing. PT called the ambulance and came to the ER. PT states she has also started to cough yellow sptum. Pt deneis chest pain, but told the ER according to them she had some chest discomfort. PT has a history of sleep apnea but states her machine was taken away because she was not using it often. PT denies diarrhea. PMH. DM HTn a fib obsity asthma chronic pain on PErcocet anxiety/depression sleep Apnea PSh; social lives alone no tob or etoh Present on Admission - Present on Admission Any Indicators Present on Admission: No Review of Systems - Constitutional Constitutional: absent: Excessive Sweating - EENT Eyes: absent: Blurred Vision - Cardiovascular Cardiovascular: Chest Pain - Respiratory Respiratory: Cough, Wheezing, Change in Mucous Color - Gastrointestinal Gastrointestinal: absent: Abdominal Pain, Diarrhea, Vomiting - Genitourinary Genitourinary: absent: Change in Urinary Stream - Neurological Neurological: absent: Abnormal Gait, Dizziness, Headaches Past Patient History - Past Medical History & Family History Past Medical History?: Yes - Past Social History Smoking Status: Never Smoked - CARDIAC Hx Congestive Heart Failure: Yes Hx Hypercholesterolemia: Yes Hx Hypertension: Yes Hx Pacemaker: Yes - PULMONARY Hx Asthma: Yes Hx Chronic Obstructive Pulmonary Disease (COPD): Yes - NEUROLOGICAL Hx Neurological Disorder: Yes Hx Vertigo: Yes Other/Comment: SCIATICA RIGHT SIDE - HEENT Hx HEENT Problems: Yes Other/Comment: HX: THYROID NODULE - RENAL Hx Chronic Kidney Disease: No - ENDOCRINE/METABOLIC Hx Endocrine Disorders: Yes Hx Diabetes Mellitus Type 1: Yes Hx Diabetes Mellitus Type 2: Yes - HEMATOLOGICAL/ONCOLOGICAL Hx Blood Disorders: No - INTEGUMENTARY Hx Dermatological Problems: No - MUSCULOSKELETAL/RHEUMATOLOGICAL Hx Arthritis: Yes - GASTROINTESTINAL Hx Gastrointestinal Disorders: Yes Hx Hemorrhoids: Yes - GENITOURINARY/GYNECOLOGICAL Hx Genitourinary Disorders: No - PSYCHIATRIC Hx Anxiety: Yes Hx Substance Use: No - SURGICAL HISTORY Hx Surgeries: Yes Hx Section: Yes (X1) Other/Comment: HX: COLON POLYPECTOMY, THRYROID BIOPSY - ANESTHESIA Hx Anesthesia: Yes Hx Anesthesia Reactions: No Hx Malignant Hyperthermia: No Meds Allergies/Adverse Reactions: Allergies Allergy/AdvReac Type Severity Reaction Status Date / Time No Known Allergies Allergy Verified 05/16/18 09:31 Physical Exam - Constitutional Appears: Non-toxic, Other - Eye Exam Eye Exam: Normal appearance - ENT Exam ENT Exam: Mucous Membranes Moist - Respiratory Exam Respiratory Exam: Prolonged Expiratory Phase - Cardiovascular Exam Cardiovascular Exam: RRR, +S1, +S2. absent: JVD, Rubs - GI/Abdominal Exam GI & Abdominal Exam: Normal Bowel Sounds, Soft. absent: Tenderness - Extremities Exam Extremities exam: Negative for: pedal edema - Back Exam Back exam: absent: CVA tenderness (L) - Skin Skin Exam: Intact, Normal Color, Warm (no leg edema now, but states she had some this AM. ER gave lasix) Results - Vital Signs Recent Vital Signs: Last Vital Signs Temp 98 F 05/16/18 16:42 Pulse 78 05/16/18 16:42 Resp 20 05/16/18 16:42 BP 108/76 05/16/18 16:42 Pulse Ox 99 05/16/18 18:55 - Labs Result Diagrams: 05/16/18 11:46 05/16/18 10:46 Labs: Laboratory Results - last 24 hr 05/16/18 05/16/18 10:46 11:46 WBC 14.2 H D RBC 5.26 H Hgb 13.4 D Hct 41.3 MCV 78.4 L MCH 25.5 L MCHC 32.5 L RDW 16.3 H Plt Count 265 MPV 9.8 Neut % (Auto) 86.1 H Lymph % (Auto) 9.6 L Lucas % (Auto) 3.4 Eos % (Auto) 0.6 Baso % (Auto) 0.3 Neut # (Auto) 12.2 H Lymph # (Auto) 1.4 Lucas # (Auto) 0.5 Eos # (Auto) 0.1 Baso # (Auto) 0.0 Neutrophils % (Manual) 85 H Lymphocytes % (Manual) 13 L Monocytes % (Manual) 1 Eosinophils % (Manual) 1 Platelet Estimate Normal Large Platelets Present Anisocytosis (manual) Slight Sodium 144 Potassium 4.3 Chloride 105 Carbon Dioxide 24 Anion Gap 19 BUN 13 Creatinine 0.7 Est GFR ( Amer) > 60 Est GFR (Non-Af Amer) > 60 Random Glucose 205 H Calcium 8.8 Total Bilirubin 0.5 AST 40 H D ALT 21 Alkaline Phosphatase 91 Troponin I 0.0170 NT-Pro-B Natriuret Pep 2310 H Total Protein 7.0 Albumin 3.9 Globulin 3.2 Albumin/Globulin Ratio 1.2 Assessment & Plan - Assessment and Plan (Free Text) Assessment: 72 year old female with sob, cxr: shows congestion elvated PBNP, but also some yellow sputum and wheezing at home, h/o ashtma admit to tele lasix o2 anbx and steroids nebx resume cpap as she has sleep apnea DANIE Cardiology consult DM: cont meds expect elevated sugars for a few days on steroids bp; Cont meds HO a fib; cnt cardizm , b tata and blood thinner monitr k closely as she has had some hypokalemia - Date & Time Date: 05/16/18
[2018-05-16] MEDS: (Novolog) Insulin Aspart, Recombinant 100 u/ml 10 ml vial SC SCH (23:35)
[2018-05-17 00:21] LABS: SQUAMOUS EPITHIAL 1 /hpf (0-5); URINE BACTERIA RARE (<OCC); URINE BILIRUBIN NEGATIVE (NEGATIVE); URINE BLOOD 1+ (NEGATIVE); URINE CLARITY Clear (Clear); URINE COLOR Straw (YELLOW); URINE GLUCOSE (UA) 2+ mg/dL (Normal); URINE LEUKOCYTE ESTERASE NEG Leu/uL (Negative); URINE PROTEIN NEGATIVE (NEGATIVE); URINE UROBILINOGEN NORMAL mg/dL (0.2-1.0)
[2018-05-17] MEDS: Albuterol 0.083% Inhal Sol (2.5 mg/3 mL) UD INH SCH ×6 (00:48→19:52)
[2018-05-17 01:08] LABS: CK-MB 1.88 ng/mL (0.0-3.38); TROPONIN I 0.534 ng/mL (0.00-0.120)
--- NOTE | 2018-05-17 02:35 | PCM.RRT ---
AIR VALUE TESTER Nurses Assessment - Situation Date: 05/17/18 Time AIR VALUE TESTER was called: 01:45 AIR VALUE TESTER Responder Arrival Time:: 01:45 AIR VALUE TESTER Location:: Med/Surg Room Number: 571B AIR VALUE TESTER Reason for Call: Respiratory Distress (pt reports that she feels short of breath, even though she is on bpap. SpO2 fell from 95% to 90% although on 30% bpap 07/09. Pt was very agitated. In light of dyspnea, troponin elevation, ekg changes, I called a AIR VALUE TESTER for further assistance. ) AIR VALUE TESTER Called By: RN, Physician (AIR VALUE TESTER called by me as elevation of troponin was noted. I gave the pt ASA 325 mg PO stat as she had not received it during this inpatient stay. EKG showed some new changes. I discussed the case with attending physician, who agreed with management. Case discussed with Cardiology, Dr. Ortiz, and ICU, Dr. Agee.) - IV IV Inserted during AIR VALUE TESTER?: No - Respiratory AIR VALUE TESTER Delivery Method: BiPAP @% Received Nebulizer Treatments: No Was the Patient Ventilated with Bag/Mask 100% O2?: No Secretions Suctioned?: No Was the Patient Intubated?: No Was the Patient Placed on a Ventilator?: No - Ventilator Settings FIO2 (% Oxygen): 50 - Medication Medications Administered During AIR VALUE TESTER: xanax 0.25 mg PO - Diagnostic Test Ordered EKG: Yes (prior to AIR VALUE TESTER) Chest X-Ray: Yes CT Scan: No CPR started during AIR VALUE TESTER?: No - Vital Signs Vital Signs: Rapid Response Vital Sign Blood Pressure 146/79 Pulse Rate 70 Respiratory Rate 22 Temperature 98.2 F Oxygen Saturation 91 - Hunker Coma Scale Coma Scale Eye Opening: Spontaneous Coma Scale Motor: Obeys Commands Movement Coma Scale Verbal: Oriented Coma Scale Total: 15 - Time AIR VALUE TESTER Ended Time AIR VALUE TESTER Ended: 02:00 - Vital Signs at end of AIR VALUE TESTER Vital Signs at end of AIR VALUE TESTER: Rapid Response End Vital Sign Blood Pressure 144/78 Pulse Rate 70 Respiratory Rate 20 Temperature 98 F O2 Sat by Pulse Oximetry 96 - Recommendations Notifications: Attending Physician, Consultations (Cardio on consult, Dr. Ortiz, contacted who reports he will see pt in am and to manage as per ICU recs. ICU consulted who came and evaluated the pt.) - Respiratory Oxygen Delivery Method: BiPAP @%
--- NOTE | 2018-05-17 06:38 | CP.PCM.CON ---
History of Present Illness - History of Present Illness History of Present Illness: 72 F a/w SOB, with some congestion in the CXR, slight elevated troponin, had episode of sob on the tele floor, when cpap changed to BIPAP with increased fio2 to 50% from 30% CPAP, and improved again, was able to sleep, maintained spo2 in 98-100%, maintained bp. Repeat CXR again showed some pulm venous congestion. Patient also currently being treated with high dose solumedrol for DD of COPD exacerbation. At time of exam patient resting comfortable, not sob or chest pain. Patient has h/o afib, s/p ablation and has pacemaker hence qrs and t wave no sensitive or specific for ischemia. PMH: Nontoxic multinodular goiter Calculus of Kidneys back-pain Atrial FIB Pacemaker and ablation Asthma Diabetes HTN Hypercholesterolemia Anemia Sleep apnea Depression Polyosteoarthritis Surgical Hx: NONE Family Hx: Mother- DM Allergies: NKDA Social Hx: Neg. Smoker (Former) Neg. ETOH Neg. Drugs Medications: Pottassium 20MEQ Percocet 7.5mg-325mg Januvia 100mg Novolog Flexpen Levemir Flexpen Bydureon 2mg inhaled steroid lasix, metalozone Cardizem Review of Systems - Review of Systems All systems: reviewed and no additional remarkable complaints except (HPI) Past Patient History - Past Medical History & Family History Past Medical History?: Yes - Past Social History Smoking Status: Never Smoked - CARDIAC Hx Congestive Heart Failure: Yes Hx Hypercholesterolemia: Yes Hx Hypertension: Yes Hx Pacemaker: Yes - PULMONARY Hx Asthma: Yes Hx Chronic Obstructive Pulmonary Disease (COPD): Yes - NEUROLOGICAL Hx Neurological Disorder: Yes Hx Vertigo: Yes Other/Comment: SCIATICA RIGHT SIDE - HEENT Hx HEENT Problems: Yes Other/Comment: HX: THYROID NODULE - RENAL Hx Chronic Kidney Disease: No - ENDOCRINE/METABOLIC Hx Endocrine Disorders: Yes Hx Diabetes Mellitus Type 1: Yes Hx Diabetes Mellitus Type 2: Yes - HEMATOLOGICAL/ONCOLOGICAL Hx Blood Disorders: No - INTEGUMENTARY Hx Dermatological Problems: No - MUSCULOSKELETAL/RHEUMATOLOGICAL Hx Arthritis: Yes - GASTROINTESTINAL Hx Gastrointestinal Disorders: Yes Hx Hemorrhoids: Yes - GENITOURINARY/GYNECOLOGICAL Hx Genitourinary Disorders: No - PSYCHIATRIC Hx Anxiety: Yes Hx Substance Use: No - SURGICAL HISTORY Hx Surgeries: Yes Hx Section: Yes (X1) Other/Comment: HX: COLON POLYPECTOMY, THRYROID BIOPSY - ANESTHESIA Hx Anesthesia: Yes Hx Anesthesia Reactions: No Hx Malignant Hyperthermia: No Meds Allergies/Adverse Reactions: Allergies Allergy/AdvReac Type Severity Reaction Status Date / Time No Known Allergies Allergy Verified 05/16/18 09:31 - Medications Medications: Current Medications Albuterol Sulfate (Albuterol 0.083% Inhal Dunia (2.5 Mg/3 Ml) Ud) 2.5 mg INH RQ4 ALISHA Last Admin: 05/17/18 04:37 Dose: 2.5 mg Alprazolam (Xanax) 0.25 mg PO BID PRN PRN Reason: Anxiety Stop: 05/23/18 22:19 Last Admin: 05/17/18 01:54 Dose: 0.25 mg Aspirin (Ecotrin) 81 mg PO DAILY [facility] Budesonide (Pulmicort Respules) 0.5 mg INH RQ12 ALISHA Diltiazem HCl (Cardizem Cd) 120 mg PO DAILY [facility] Ezetimibe (Zetia) 10 mg PO DAILY [facility] Furosemide (Lasix) 40 mg IVP DAILY [facility] Insulin Aspart (Novolog) 0 unit SC ACHS [facility]; Protocol Last Admin: 05/16/18 23:35 Dose: 2 units Insulin Detemir (Levemir) 20 unit SC DAILY [facility] Methylprednisolone (Solu-Medrol) 125 mg IV Q12 [facility] Last Admin: 05/16/18 23:34 Dose: 125 mg Metoprolol Tartrate (Lopressor) 25 mg PO BRKDIN [facility] Metronidazole (Flagyl) 500 mg PO Q8 [facility]; Protocol Last Admin: 05/17/18 06:06 Dose: Not Given Montelukast Sodium (Singulair) 10 mg PO HS [facility] Last Admin: 05/16/18 23:34 Dose: 10 mg [place]-0-Usio Ethyl Esters (Lovaza) 1 gm PO BID [facility] Oxycodone/Acetaminophen (Percocet 5/325 Mg Tab) 1 tab PO Q8H PRN PRN Reason: Pain, moderate (4-7) Stop: 05/19/18 22:08 Pantoprazole Sodium (Protonix Ec Tab) 40 mg PO DAILY [facility] Rosuvastatin Calcium (Crestor) 20 mg PO HS [facility] Last Admin: 05/16/18 23:34 Dose: 20 mg Sitagliptin Phosphate (Januvia) 50 mg PO DAILY [facility] Physical Exam - Additional Findings Additional findings: HEENT STERLING Neck supple chest slight rattling, rales in the bases CVS regular, no gallop or rub PA soft obese Ext 1+ edema [employer] arosable oriented, skin normal turgor Results - Vital Signs Recent Vital Signs: Last Vital Signs Temp 98 F 05/17/18 02:00 Pulse 70 05/17/18 05:06 Resp 20 05/17/18 05:06 BP 126/71 05/17/18 05:06 Pulse Ox 100 05/17/18 05:06 - Labs Result Diagrams: 05/16/18 11:46 05/16/18 10:46 Labs: Laboratory Results - last 24 hr 05/16/18 05/16/18 05/16/18 10:46 11:46 21:13 WBC 14.2 H D RBC 5.26 H Hgb 13.4 D Hct 41.3 MCV 78.4 L MCH 25.5 L MCHC 32.5 L RDW 16.3 H Plt Count 265 MPV 9.8 Neut % (Auto) 86.1 H Lymph % (Auto) 9.6 L Coles % (Auto) 3.4 Eos % (Auto) 0.6 Baso % (Auto) 0.3 Neut # (Auto) 12.2 H Lymph # (Auto) 1.4 Coles # (Auto) 0.5 Eos # (Auto) 0.1 Baso # (Auto) 0.0 Neutrophils % (Manual) 85 H Lymphocytes % (Manual) 13 L Monocytes % (Manual) 1 Eosinophils % (Manual) 1 Platelet Estimate Normal Large Platelets Present Anisocytosis (manual) Slight Sodium 144 Potassium 4.3 Chloride 105 Carbon Dioxide 24 Anion Gap 19 BUN 13 Creatinine 0.7 Est GFR ( Amer) > 60 Est GFR (Non-Af Amer) > 60 POC Glucose (mg/dL) 302 H Random Glucose 205 H Calcium 8.8 Total Bilirubin 0.5 AST 40 H D ALT 21 Alkaline Phosphatase 91 Total Creatine Kinase CK-MB (Mass) Troponin I 0.0170 NT-Pro-B Natriuret Pep 2310 H Total Protein 7.0 Albumin 3.9 Globulin 3.2 Albumin/Globulin Ratio 1.2 Urine Color Urine Clarity Urine pH Ur Specific Scalf Urine Protein Urine Glucose (UA) Urine Ketones Urine Blood Urine Nitrate Urine Bilirubin Urine Urobilinogen Ur Leukocyte Esterase Urine WBC (Auto) Urine RBC (Auto) Ur Squamous Epith Cells Urine Bacteria Hyaline Casts 05/17/18 05/17/18 00:15 00:15 WBC RBC Hgb Hct MCV MCH MCHC RDW Plt Count MPV Neut % (Auto) Lymph % (Auto) Coles % (Auto) Eos % (Auto) Baso % (Auto) Neut # (Auto) Lymph # (Auto) Coles # (Auto) Eos # (Auto) Baso # (Auto) Neutrophils % (Manual) Lymphocytes % (Manual) Monocytes % (Manual) Eosinophils % (Manual) Platelet Estimate Large Platelets Anisocytosis (manual) Sodium Potassium Chloride Carbon Dioxide Anion Gap BUN Creatinine Est GFR ( Amer) Est GFR (Non-Af Amer) POC Glucose (mg/dL) Random Glucose Calcium Total Bilirubin AST ALT Alkaline Phosphatase Total Creatine Kinase 114 CK-MB (Mass) 1.88 Troponin I 0.5340 H* NT-Pro-B Natriuret Pep Total Protein Albumin Globulin Albumin/Globulin Ratio Urine Color Straw Urine Clarity Clear Urine pH 5.0 Ur Specific Scalf 1.006 Urine Protein Negative Urine Glucose (UA) 2+ H Urine Ketones Negative Urine Blood 1+ H Urine Nitrate Negative Urine Bilirubin Negative Urine Urobilinogen Normal Ur Leukocyte Esterase Neg Urine WBC (Auto) < 1 Urine RBC (Auto) 1 Ur Squamous Epith Cells 1 Urine Bacteria Rare Hyaline Casts 3-5 H Assessment & Plan - Assessment and Plan (Free Text) Assessment: * Clinically suspect CHF, with dd of chf secondary to ischemia vs volume retention with steroids * H/o sleep apnea, asthma, obese, * H/o afib s/p ablation, s/p pacemaker * IDDM * H/o peptic ulcer disease and colonic polyps Plan: * Hold on systemic steroids, added inhaled steroids * Diuresis, patient is 2 meds at home, iv diuresis will be more reliable * Add low dose betablocker if tolerated, may also add low dose ACEI/ARB * Lose dose asa due to + trop, repeat troponin, anticoagulation with heparin instead of pradaxa if repeat trop significantly elevated. * Repeat echo * Recommend cardiology eval * FIo2 titrate to keep spo2 in range of low 90's currently reduced to 40% * Since patient is currently symptom free and sleeping comfortably could be observed on the tele floor * Primary team being reached by the nursing. * See orders for detail
[2018-05-17] MEDS: Budesonide 0.5 mg/2 ml Inhal Susp UD INH SCH ×2 (07:29→19:52)
[2018-05-17 09:16] LABS: HEMOGLOBIN 11.7 g/dL (11.0-16.0); MEAN CELL VOLUME 77.4 fL (81.0-99.0); MEAN CORPUSCULAR HEMOGLOBIN 25.4 pg (27.0-31.0); MEAN CORPUSCULAR HGB CONC 32.8 g/dL (33.0-37.0); RBC 4.61 Mil/uL (3.80-5.20); RED CELL DISTRIBUTION WIDTH 15.9 % (11.5-14.5); WHITE BLOOD COUNT 13.5 K/uL (4.8-10.8)
[2018-05-17 09:18] LABS: BLOOD UREA NITROGEN 14 mg/dL (7-17); CALCIUM 8.6 mg/dl (8.6-10.4); GFR NON-AFRICAN AMERICAN > 60
[2018-05-17] MEDS: diltiaZEM 120 mg/24 Hours CD Cap PO SCH (09:36)
[2018-05-17] MEDS: Omega-3-Acid Ethyl Esters 1 GM Cap PO SCH ×2 (09:36→17:53)
[2018-05-17] MEDS: Pantoprazole 40 mg EC Tab PO SCH (09:37)
[2018-05-17] MEDS: Insulin Detemir 100 units/ml Vial (Levemir) SC SCH (09:38)
[2018-05-17] MEDS: (Novolog) Insulin Aspart, Recombinant 100 u/ml 10 ml vial SC SCH ×4 (09:38→22:13)
[2018-05-17 09:51] LABS: CK-MB 1.89 ng/mL (0.0-3.38)
--- NOTE | 2018-05-17 10:18 | RAD ---
HISTORY: dyspnea COMPARISON: Chest x-ray performed 05/16/18 TECHNIQUE: Chest, one view. FINDINGS: Examination limited by habitus. LUNGS: Moderate venous congestion. PLEURA: No significant pleural effusion identified. No definite pneumothorax . CARDIOVASCULAR: Cardiomegaly. Single lead left-sided pacemaker. Atherosclerotic calcifications of the aorta. OSSEOUS STRUCTURES: Degenerative changes. VISUALIZED UPPER ABDOMEN: Unremarkable. OTHER FINDINGS: None. IMPRESSION: Findings as above consistent with moderate CHF/edema. Correlate clinically. Preliminary impression was provided by [employer].
[2018-05-17] MEDS ORDERED: (Novolog) Insulin Aspart, Recombinant 100 u/ml 10 ml vial SC ONE (11:24)
--- NOTE | 2018-05-17 12:57 | CP.PCM.CON ---
History of Present Illness - History of Present Illness History of Present Illness: I was asked to see patient due to dyspnea and NSTEMI. Patient is a 72 year old female with CAD, HTN, afib, PPM obesity who presents wi th dyspnea. The patient has had 2 hospitalizations for cough dsypnea. She was thought to have pneumonia. She states she did well and was discharged but now presents with dsypnea. The troponin was elevated. The patient denies current chest pain or dsypnea. Review of Systems - Constitutional Constitutional: absent: As Per HPI, Anorexia, Chills, Daytime Sleepiness, Excessive Sweating, Fatigue, Fever, Frequent Falls, Headache, Increased Appetite, Lethargy, Malaise, Night Sweats, Snoring, Sleep Apnea, Weight Gain, Weight Loss, Weakness, Other - EENT Eyes: absent: As Per HPI, Blind Spots, Blurred Vision, Change in Vision, Decreased Night Vision, Diplopia, Discharge, Dry Eye, Exophthalmos, Floaters, Irritation, Itchy Eyes, Loss of Peripheral Vision, Pain, Photophobia, Requires Corrective Lenses, Sees Flashes, Spots in Vision, Tunnel Vision, Other Visual Disturbances, Loss of Vision, Other Ears: absent: As Per HPI, Decreased Hearing, Ear Discharge, Ear Pain, Tinnitus, Abnormal Hearing, Disequilibrium, Dizziness, Other Nose/Mouth/Throat: absent: As Per HPI, Epistaxis, Nasal Congestion, Nasal Discharge, Nasal Obstruction, Nasal Trauma, Nose Pain, Post Nasal Drip, Sinus Pain, Sinus Pressure, Bleeding Gums, Change in Voice, Dental Pain, Dry Mouth, Dysphagia, Halitosis, Hoarsness, Lip Swelling, Mouth Lesions, Mouth Pain, Odynophagia, Sore Throat, Throat Swelling, Tongue Swelling, Facial Pain, Neck Pain, Neck Mass, Other - Cardiovascular Cardiovascular: Dyspnea, Pedal Edema - Respiratory Respiratory: Dyspnea - Gastrointestinal Gastrointestinal: absent: As Per HPI, Abdominal Pain, Belching, Bloating, Change in Bowel Habits, Change in Stool Character, Coffee Ground Emesis, Constipation, Cramping, Diarrhea, Dyspepsia, Dysphagia, Early Satiety, Excessive Flatus, Fecal Incontinence, Heartburn, Hematemesis, Hematochezia, Loose Stools, Melena, Nausea, Odynophagia, Temesmus, Vomiting, Other - Genitourinary Genitourinary: absent: As Per HPI, Change in Urinary Stream, Difficulty Urinating, Dysuria, Flank Pain, Hematuria, Pyuria, Nocturia, Urinary Incontinence, Urinary Frequency, Urinary Hesitance, Urinary Urgency, Voiding Freq/Small Amts, Freq UTI, Hx Renal/Bladder Calculi, Hx /Renal Surgery, Bladder Distension, Other - Musculoskeletal Musculoskeletal: absent: As Per HPI, Abnormal Gait, Arthralgias, Atrophy, Back Pain, Deformity, Joint Swelling, Limited Range of Motion, Loss of Height, Muscle Cramps, Muscle Weakness, Myalgias, Neck Pain, Numbness, Radiating Pain into Limb, Stiffness, Tingling, Other - Integumentary Integumentary: absent: As Per HPI, Acne, Alopecia, Bleeding Lesions, Change in Hair, Change in Nails, Change in Pigmentation, Changing Lesions, Dry Skin, Erythema, Furuncle, Hirsutism, Lesions, New Lesions, Non-Healing Lesions, Photosensitivity, Pruritus, Rash, Skin Pain, Skin Ulcer, Sores, Striae, Swelling, Unusual Bruising, Wounds, Jaundice, Other - Neurological Neurological: absent: As Per HPI, Abnormal Gait, Abnormal Hearing, Abnormal Movements, Abnormal Speech, Behavioral Changes, Burning Sensations, Confusion, Convulsions, Disequilibrium, Dizziness, Numbness, Focal Weakness, Frequent Falls, Headaches, Lack of Coordination, Loss of Vision, Memory Loss, Paresthesias, Radicular Pain, Restless Legs, Sensory Deficit, Syncope, Tingling, Tremor, Vertigo, Weakness, Other Visual Disturbances, Other - Psychiatric Psychiatric: absent: As Per HPI, Abnormal Sleep Pattern, Anhedonia, Anxiety, Auditory Hallucinations, Behavioral Changes, Change in Appetite, Change in Libido, Confusion, Depression, Difficulty Concentrating, Hallucinations, Homicidal Ideation, Hopelessness, Irritability, Memory Loss, Mood Swings, Panic Attacks, Paranoia, Suicidal Ideation, Visual Hallucinations, Tactile Hallucinations, Other - Endocrine Endocrine: absent: As Per HPI, Change in Body Appearance, Change in Libido, Cold Intolorance, Deepening of Voice, Excessive Sweating, Fatigue, Flushing, Heat Intolorance, Increase in Ring/Shoe/Hat Size, Palpitations, Polydipsia, Polyphagia, Polyuria, Other - Hematologic/Lymphatic Hematologic: absent: As Per HPI, Easy Bleeding, Easy Bruising, Lymphadenopathy, Other Past Patient History - Past Medical History & Family History Past Medical History?: Yes - Past Social History Smoking Status: Never Smoked - CARDIAC Hx Congestive Heart Failure: Yes Hx Hypercholesterolemia: Yes Hx Hypertension: Yes Hx Pacemaker: Yes - PULMONARY Hx Asthma: Yes Hx Chronic Obstructive Pulmonary Disease (COPD): Yes - NEUROLOGICAL Hx Neurological Disorder: Yes Hx Vertigo: Yes Other/Comment: SCIATICA RIGHT SIDE - HEENT Hx HEENT Problems: Yes Other/Comment: HX: THYROID NODULE - RENAL Hx Chronic Kidney Disease: No - ENDOCRINE/METABOLIC Hx Endocrine Disorders: Yes Hx Diabetes Mellitus Type 1: Yes Hx Diabetes Mellitus Type 2: Yes - HEMATOLOGICAL/ONCOLOGICAL Hx Blood Disorders: No - INTEGUMENTARY Hx Dermatological Problems: No - MUSCULOSKELETAL/RHEUMATOLOGICAL Hx Arthritis: Yes - GASTROINTESTINAL Hx Gastrointestinal Disorders: Yes Hx Hemorrhoids: Yes - GENITOURINARY/GYNECOLOGICAL Hx Genitourinary Disorders: No - PSYCHIATRIC Hx Anxiety: Yes Hx Substance Use: No - SURGICAL HISTORY Hx Surgeries: Yes Hx Section: Yes (X1) Other/Comment: HX: COLON POLYPECTOMY, THRYROID BIOPSY - ANESTHESIA Hx Anesthesia: Yes Hx Anesthesia Reactions: No Hx Malignant Hyperthermia: No Meds Allergies/Adverse Reactions: Allergies Allergy/AdvReac Type Severity Reaction Status Date / Time No Known Allergies Allergy Verified 05/16/18 09:31 - Medications Medications: Current Medications Albuterol Sulfate (Albuterol 0.083% Inhal Dunia (2.5 Mg/3 Ml) Ud) 2.5 mg INH RQ4 [facility] Last Admin: 05/17/18 11:18 Dose: 2.5 mg Alprazolam (Xanax) 0.25 mg PO BID PRN PRN Reason: Anxiety Stop: 05/23/18 22:19 Last Admin: 05/17/18 01:54 Dose: 0.25 mg Aspirin (Ecotrin) 81 mg PO DAILY [facility] Last Admin: 05/17/18 09:36 Dose: 81 mg Budesonide (Pulmicort Respules) 0.5 mg INH RQ12 [facility] Last Admin: 05/17/18 07:29 Dose: 0.5 mg Diltiazem HCl (Cardizem Cd) 120 mg PO DAILY [facility] Last Admin: 05/17/18 09:36 Dose: 120 mg Ezetimibe (Zetia) 10 mg PO HS [facility] Furosemide (Lasix) 40 mg IVP DAILY [facility] Last Admin: 05/17/18 09:37 Dose: 40 mg Insulin Aspart (Novolog) 0 unit SC [facility]; Protocol Last Admin: 05/17/18 12:28 Dose: 10 units Insulin Detemir (Levemir) 20 unit SC DAILY [facility] Last Admin: 05/17/18 09:38 Dose: 20 unit Methylprednisolone (Solu-Medrol) 125 mg IV Q12 [facility] Last Admin: 05/16/18 23:34 Dose: 125 mg Metoprolol Tartrate (Lopressor) 25 mg PO BIDBS [facility] Last Admin: 05/17/18 09:36 Dose: 25 mg Metronidazole (Flagyl) 500 mg PO Q8 [facility]; Protocol Last Admin: 05/17/18 09:36 Dose: 500 mg Montelukast Sodium (Singulair) 10 mg PO HS [facility] Last Admin: 05/16/18 23:34 Dose: 10 mg [id number]-[id number] Ethyl Esters (Lovaza) 1 gm PO BID [facility] Last Admin: 05/17/18 09:36 Dose: 1 gm Oxycodone/Acetaminophen (Percocet 5/325 Mg Tab) 1 tab PO Q8H PRN PRN Reason: Pain, moderate (4-7) Stop: 05/19/18 22:08 Pantoprazole Sodium (Protonix Ec Tab) 40 mg PO DAILY [facility] Last Admin: 05/17/18 09:37 Dose: 40 mg Rosuvastatin Calcium (Crestor) 20 mg PO [facility] Last Admin: 05/16/18 23:34 Dose: 20 mg Sitagliptin Phosphate (Januvia) 50 mg PO DAILY [facility] Last Admin: 05/17/18 09:36 Dose: 50 mg Physical Exam - Constitutional Appears: Non-toxic - Head Exam Head Exam: NORMAL INSPECTION - Eye Exam Eye Exam: Normal appearance - ENT Exam ENT Exam: Mucous Membranes Moist - Neck Exam Neck exam: Positive for: Full Rom, Normal Inspection - Respiratory Exam Respiratory Exam: Decreased Breath Sounds - Cardiovascular Exam Cardiovascular Exam: REGULAR RHYTHM - GI/Abdominal Exam GI & Abdominal Exam: Normal Bowel Sounds - Rectal Exam Rectal Exam: Deferred - Extremities Exam Extremities exam: Positive for: pedal edema - Back Exam Back exam: NORMAL INSPECTION - Neurological Exam Neurological exam: Alert, Oriented x3 - Psychiatric Exam Psychiatric exam: Normal Affect - Skin Skin Exam: Normal Color Results - Vital Signs Recent Vital Signs: Last Vital Signs Temp 97.9 F 05/17/18 08:27 Pulse 98 H 05/17/18 08:27 Resp 20 10/14/18 08:27 BP 135/77 05/17/18 09:37 Pulse Ox 100 05/17/18 08:27 - Labs Result Diagrams: 05/17/18 06:46 05/17/18 06:46 Labs: Laboratory Results - last 24 hr 05/16/18 05/16/18 05/17/18 11:46 21:13 00:15 WBC RBC Hgb Hct MCV MCH MCHC RDW Plt Count MPV Neutrophils % (Manual) 85 H Lymphocytes % (Manual) 13 L Monocytes % (Manual) 1 Eosinophils % (Manual) 1 Platelet Estimate Normal Large Platelets Present Anisocytosis (manual) Slight Sodium Potassium Chloride Carbon Dioxide Anion Gap BUN Creatinine Est GFR ( Amer) Est GFR (Non-Af Amer) POC Glucose (mg/dL) 302 H Random Glucose Calcium Phosphorus Magnesium Total Creatine Kinase CK-MB (Mass) Troponin I Urine Color Straw Urine Clarity Clear Urine pH 5.0 Ur Specific [place] 1.006 Urine Protein Negative Urine Glucose (UA) 2+ H Urine Ketones Negative Urine Blood 1+ H Urine Nitrate Negative Urine Bilirubin Negative Urine Urobilinogen Normal Ur Leukocyte Esterase Neg Urine WBC (Auto) < 1 Urine RBC (Auto) 1 Ur Squamous Epith Cells 1 Urine Bacteria Rare Hyaline Casts 3-5 H 05/17/18 05/17/18 05/17/18 00:15 01:47 06:25 WBC RBC Hgb Hct MCV MCH MCHC RDW Plt Count MPV Neutrophils % (Manual) Lymphocytes % (Manual) Monocytes % (Manual) Eosinophils % (Manual) Platelet Estimate Large Platelets Anisocytosis (manual) Sodium Potassium Chloride Carbon Dioxide Anion Gap BUN Creatinine Est GFR ( Amer) Est GFR (Non-Af Amer) POC Glucose (mg/dL) 265 H 339 H Random Glucose Calcium Phosphorus Magnesium Total Creatine Kinase 114 CK-MB (Mass) 1.88 Troponin I 0.5340 H* Urine Color Urine Clarity Urine pH Ur Specific [place] Urine Protein Urine Glucose (UA) Urine Ketones Urine Blood Urine Nitrate Urine Bilirubin Urine Urobilinogen Ur Leukocyte Esterase Urine WBC (Auto) Urine RBC (Auto) Ur Squamous Epith Cells Urine Bacteria Hyaline Casts 05/17/18 05/17/18 05/17/18 06:46 06:46 11:09 WBC 13.5 H RBC 4.61 Hgb 11.7 Hct 35.6 MCV 77.4 L MCH 25.4 L MCHC 32.8 L RDW 15.9 H Plt Count 237 MPV 10.0 Neutrophils % (Manual) Lymphocytes % (Manual) Monocytes % (Manual) Eosinophils % (Manual) Platelet Estimate Large Platelets Anisocytosis (manual) Sodium 139 Potassium 4.2 Chloride 100 Carbon Dioxide 27 Anion Gap 17 BUN 14 Creatinine 0.8 Est GFR ( Amer) > 60 Est GFR (Non-Af Amer) > 60 POC Glucose (mg/dL) 463 H* Random Glucose 403 H* D Calcium 8.6 Phosphorus 3.5 Magnesium 1.7 Total Creatine Kinase 88 CK-MB (Mass) 1.89 Troponin I 0.2850 H* Urine Color Urine Clarity Urine pH Ur Specific [place] Urine Protein Urine Glucose (UA) Urine Ketones Urine Blood Urine Nitrate Urine Bilirubin Urine Urobilinogen Ur Leukocyte Esterase Urine WBC (Auto) Urine RBC (Auto) Ur Squamous Epith Cells Urine Bacteria Hyaline Casts - EKG Data EKG Interpreted by: Myself Assessment & Plan (1) NSTEMI (non-ST elevated myocardial infarction) Assessment and Plan: patient has cardiovascular risk factors of CAD. She will require cardiac [facility] elevated troponin. She was previously on Pradaxa for afib. will hold and wait for anticoagulant effect of Pradaxa to dissipate. Plan for cardiac cath Friday Status: Acute (2) Chronic atrial fibrillation Assessment and Plan: hold Pradaxa Status: Acute (3) HTN (hypertension) Assessment and Plan: blood pressure control Status: Acute
--- NOTE | 2018-05-17 15:26 | CP.PCM.PN ---
Subjective - Date & Time of Evaluation Date of Evaluation: 05/17/18 Time of Evaluation: 15:26 - Subjective Subjective: PT siting up in bed with friends who are visiting, in good spirits and reports feeling better. Last night event noted. PT now on bipap ( not at the moment) denies chest pain reports still coughing up with some congestion Objective - Vital Signs/Intake and Output Vital Signs (last 24 hours): Temp Pulse Resp BP Pulse Ox 97.9 F 98 H 20 135/77 100 05/17/18 08:27 05/17/18 08:27 05/17/18 08:27 05/17/18 09:37 05/17/18 08:27 Intake and Output: 05/17/18 05/17/18 06:59 18:59 Intake Total 100 Output Total 1200 Balance -1100 - Medications Medications: Current Medications Albuterol Sulfate (Albuterol 0.083% Inhal Dunia (2.5 Mg/3 Ml) Ud) 2.5 mg INH RQ4 [facility] Last Admin: 05/17/18 11:18 Dose: 2.5 mg Alprazolam (Xanax) 0.25 mg PO BID PRN PRN Reason: Anxiety Stop: 05/23/18 22:19 Last Admin: 05/17/18 01:54 Dose: 0.25 mg Aspirin (Ecotrin) 81 mg PO DAILY [facility] Last Admin: 05/17/18 09:36 Dose: 81 mg Budesonide (Pulmicort Respules) 0.5 mg INH RQ12 [facility] Last Admin: 05/17/18 07:29 Dose: 0.5 mg Diltiazem HCl (Cardizem Cd) 120 mg PO DAILY [facility] Last Admin: 05/17/18 09:36 Dose: 120 mg Ezetimibe (Zetia) 10 mg PO HS [facility] Furosemide (Lasix) 40 mg IVP DAILY [facility] Last Admin: 05/17/18 09:37 Dose: 40 mg Insulin Aspart (Novolog) 0 unit SC [facility]; Protocol Last Admin: 05/17/18 12:28 Dose: 10 units Insulin Detemir (Levemir) 20 unit SC DAILY [facility] Last Admin: 05/17/18 09:38 Dose: 20 unit Metoprolol Tartrate (Lopressor) 25 mg PO BIDBS [facility] Last Admin: 05/17/18 09:36 Dose: 25 mg Metronidazole (Flagyl) 500 mg PO Q8 [facility]; Protocol Last Admin: 05/17/18 09:36 Dose: 500 mg Montelukast Sodium (Singulair) 10 mg PO HS [facility] Last Admin: 05/16/18 23:34 Dose: 10 mg Zycye-5-Lndn Ethyl Esters (Lovaza) 1 gm PO BID [facility] Last Admin: 05/17/18 09:36 Dose: 1 gm Oxycodone/Acetaminophen (Percocet 5/325 Mg Tab) 1 tab PO Q8H PRN PRN Reason: Pain, moderate (4-7) Stop: 05/19/18 22:08 Pantoprazole Sodium (Protonix Ec Tab) 40 mg PO DAILY [facility] Last Admin: 05/17/18 09:37 Dose: 40 mg Rosuvastatin Calcium (Crestor) 20 mg PO HS [facility] Last Admin: 05/16/18 23:34 Dose: 20 mg Sitagliptin Phosphate (Januvia) 50 mg PO DAILY [facility] Last Admin: 05/17/18 09:36 Dose: 50 mg - Labs Labs: 05/17/18 06:46 05/17/18 06:46 - Constitutional Appears: Non-toxic - Eye Exam Eye Exam: Normal appearance - ENT Exam ENT Exam: Mucous Membranes Moist - Respiratory Exam Respiratory Exam: Prolonged Expiratory Phase - Cardiovascular Exam Cardiovascular Exam: RRR, +S1, +S2. absent: JVD - Extremities Exam Extremities Exam: Pedal Edema Assessment and Plan - Assessment and Plan (Free Text) Assessment: NSTMI; oxygen, b tata and asa appreciate cardio input for cath metformin on hold Asthhma; exac received some steroids IV now on inhaled alone will monior recent diarrhea on flagyl will finish emperic course DM; elevated sugars due to steroids off solumedrol will adjust meds accordingly sleep apnea; on BIPAP now pulm consult to follow up out.
[2018-05-17] MEDS: Azithromycin 500mg/250ML NS 500 MG/250 ML BAG IVPB SCH (17:55)
[2018-05-17] MEDS ORDERED: (Novolog) Insulin Aspart, Recombinant 100 u/ml 10 ml vial SC SCH (18:00)
[2018-05-18] MEDS: Albuterol 0.083% Inhal Sol (2.5 mg/3 mL) UD INH SCH ×6 (00:29→19:55)
[2018-05-18] MEDS: Budesonide 0.5 mg/2 ml Inhal Susp UD INH SCH ×2 (07:45→19:55)
[2018-05-18 07:57] LABS: BLOOD UREA NITROGEN 33 mg/dL (7-17); CALCIUM 8.3 mg/dl (8.6-10.4); GFR NON-AFRICAN AMERICAN 55
[2018-05-18] MEDS: Pantoprazole 40 mg EC Tab PO SCH (09:41)
[2018-05-18] MEDS: Omega-3-Acid Ethyl Esters 1 GM Cap PO SCH ×2 (09:41→17:00)
[2018-05-18] MEDS: Insulin Detemir 100 units/ml Vial (Levemir) SC SCH (10:28)
[2018-05-18] MEDS: (Novolog) Insulin Aspart, Recombinant 100 u/ml 10 ml vial SC SCH ×6 (10:28→23:10)
[2018-05-18] MEDS: Oxycodone/Acetaminophen 5/325 mg Tab PO PRN (11:09)
[2018-05-18] MEDS: diltiaZEM 120 mg/24 Hours CD Cap PO SCH (11:09)
[2018-05-18] MEDS: Azithromycin 500mg/250ML NS 500 MG/250 ML BAG IVPB SCH (16:25)
--- NOTE | 2018-05-18 16:41 | CP.PCM.PN ---
Subjective - Date & Time of Evaluation Date of Evaluation: 05/18/18 Time of Evaluation: 16:46 - Subjective Subjective: PT STATES this AM she had some sputum with blood. NOne since then pt states she is breathing better today but feels a little weak no chest pain Objective - Vital Signs/Intake and Output Vital Signs (last 24 hours): Temp Pulse Resp BP Pulse Ox 97.6 F 70 18 112/66 99 05/18/18 15:00 05/18/18 15:00 05/18/18 15:00 05/18/18 15:00 05/18/18 15:00 Intake and Output: 05/18/18 05/18/18 06:59 18:59 Intake Total 840 Output Total 1700 Balance -860 - Medications Medications: Current Medications Albuterol Sulfate (Albuterol 0.083% Inhal Dunia (2.5 Mg/3 Ml) Ud) 2.5 mg INH RQ4 [facility] Last Admin: 05/18/18 11:30 Dose: 2.5 mg Alprazolam (Xanax) 0.25 mg PO BID PRN PRN Reason: Anxiety Stop: 05/23/18 22:19 Last Admin: 05/18/18 10:07 Dose: 0.25 mg Aspirin (Ecotrin) 81 mg PO DAILY [facility] Last Admin: 05/18/18 10:26 Dose: 81 mg Budesonide (Pulmicort Respules) 0.5 mg INH RQ12 [facility] Last Admin: 05/18/18 07:45 Dose: 0.5 mg Diltiazem HCl (Cardizem Cd) 120 mg PO DAILY [facility] Last Admin: 05/18/18 11:09 Dose: 120 mg Ezetimibe (Zetia) 10 mg PO HS [facility] Last Admin: 05/17/18 22:13 Dose: 10 mg Azithromycin (Zithromax 500mg In Ns Addvantage) 500 mg in 250 mls @ 167 mls/hr IVPB Q24H [facility]; Protocol Last Admin: 05/17/18 17:55 Dose: 167 mls/hr Insulin Aspart (Novolog) 0 unit SC ACHS [facility]; Protocol Last Admin: 05/18/18 12:28 Dose: 8 units Insulin Aspart (Novolog) 10 unit SC AC [facility] Last Admin: 05/18/18 12:29 Dose: 10 units Metoprolol Tartrate (Lopressor) 25 mg PO BIDBS [facility] Last Admin: 05/18/18 08:54 Dose: 25 mg Metronidazole (Flagyl) 500 mg PO Q8 [facility]; Protocol Last Admin: 05/18/18 13:58 Dose: 500 mg Montelukast Sodium (Singulair) 10 mg PO HS [facility] Last Admin: 05/17/18 22:12 Dose: 10 mg [id number]-9-Gcxu Ethyl Esters (Lovaza) 1 gm PO BID [facility] Last Admin: 05/18/18 09:41 Dose: 1 gm Oxycodone/Acetaminophen (Percocet 5/325 Mg Tab) 1 tab PO Q8H PRN PRN Reason: Pain, moderate (4-7) Stop: 05/19/18 22:08 Last Admin: 05/18/18 11:09 Dose: 1 tab Pantoprazole Sodium (Protonix Ec Tab) 40 mg PO DAILY [facility] Last Admin: 05/18/18 09:41 Dose: 40 mg Rosuvastatin Calcium (Crestor) 20 mg PO [facility] Last Admin: 05/17/18 22:13 Dose: 20 mg Sitagliptin Phosphate (Januvia) 50 mg PO DAILY [facility] Last Admin: 05/18/18 09:41 Dose: 50 mg - Labs Labs: 05/17/18 06:46 05/18/18 07:21 - Constitutional Appears: Non-toxic - Eye Exam Eye Exam: Normal appearance - ENT Exam ENT Exam: Mucous Membranes Moist - Respiratory Exam Respiratory Exam: Clear to Ausculation Bilateral - Cardiovascular Exam Cardiovascular Exam: RRR, +S1, +S2. absent: JVD - GI/Abdominal Exam GI & Abdominal Exam: Soft, Normal Bowel Sounds. absent: Tenderness (petal edema trace bl) Assessment and Plan - Assessment and Plan (Free Text) Assessment: 1. cardiac; for cath tomorrow held metformin decreased lasix as bun starting to go up 2.blood tinged sputum likely related to anticoagulation close monitoring cbc in AM 3. sugars; expect numbers to get better now that she is off steroids 4. ashtma; better given this AM events ordered pulm consult
--- NOTE | 2018-05-18 21:01 | CP.PCM.PN ---
Subjective - Date & Time of Evaluation Date of Evaluation: 05/18/18 Time of Evaluation: 17:20 - Subjective Subjective: Patient has dyspnea with minimal exertion Objective - Vital Signs/Intake and Output Vital Signs (last 24 hours): Temp Pulse Resp BP Pulse Ox 97.6 F 70 18 115/70 99 05/18/18 15:00 05/18/18 16:40 05/18/18 15:00 05/18/18 17:02 05/18/18 15:00 - Medications Medications: Current Medications Albuterol Sulfate (Albuterol 0.083% Inhal Dunia (2.5 Mg/3 Ml) Ud) 2.5 mg INH RQ4 [facility] Last Admin: 05/18/18 19:55 Dose: Not Given Alprazolam (Xanax) 0.25 mg PO BID PRN PRN Reason: Anxiety Stop: 05/23/18 22:19 Last Admin: 05/18/18 10:07 Dose: 0.25 mg Aspirin (Ecotrin) 81 mg PO DAILY [facility] Last Admin: 05/18/18 10:26 Dose: 81 mg Budesonide (Pulmicort Respules) 0.5 mg INH RQ12 [facility] Last Admin: 05/18/18 19:55 Dose: Not Given Diltiazem HCl (Cardizem Cd) 120 mg PO DAILY [facility] Last Admin: 05/18/18 11:09 Dose: 120 mg Ezetimibe (Zetia) 10 mg PO HS [facility] Last Admin: 05/17/18 22:13 Dose: 10 mg Furosemide (Lasix) 20 mg PO DAILY [facility] Azithromycin (Zithromax 500mg In Ns Addvantage) 500 mg in 250 mls @ 167 mls/hr IVPB Q24H [facility]; Protocol Last Admin: 05/18/18 16:25 Dose: 167 mls/hr Insulin Aspart (Novolog) 0 unit SC ACHS [facility]; Protocol Last Admin: 05/18/18 17:01 Dose: 3 units Insulin Aspart (Novolog) 10 unit SC AC [facility] Last Admin: 05/18/18 17:01 Dose: 10 units Insulin Detemir (Levemir) 22 unit SC DAILY [facility] Metoprolol Tartrate (Lopressor) 25 mg PO BIDBS [facility] Last Admin: 05/18/18 17:02 Dose: 25 mg Metronidazole (Flagyl) 500 mg PO Q8 [facility]; Protocol Last Admin: 05/18/18 13:58 Dose: 500 mg Montelukast Sodium (Singulair) 10 mg PO HS [facility] Last Admin: 05/17/18 22:12 Dose: 10 mg Rkqyv-2-Ktlm Ethyl Esters (Lovaza) 1 gm PO BID [facility] Last Admin: 05/18/18 17:00 Dose: 1 gm Oxycodone/Acetaminophen (Percocet 5/325 Mg Tab) 1 tab PO Q8H PRN PRN Reason: Pain, moderate (4-7) Stop: 05/19/18 22:08 Last Admin: 05/18/18 11:09 Dose: 1 tab Pantoprazole Sodium (Protonix Ec Tab) 40 mg PO DAILY [facility] Last Admin: 05/18/18 09:41 Dose: 40 mg Rosuvastatin Calcium (Crestor) 20 mg PO [facility] Last Admin: 05/17/18 22:13 Dose: 20 mg Sitagliptin Phosphate (Januvia) 50 mg PO DAILY [facility] Last Admin: 05/18/18 09:41 Dose: 50 mg - Labs Labs: 05/17/18 06:46 05/18/18 07:21 - Constitutional Appears: Non-toxic - Head Exam Head Exam: NORMAL INSPECTION - Eye Exam Eye Exam: Normal appearance - ENT Exam ENT Exam: Mucous Membranes Moist - Neck Exam Neck Exam: Full ROM - Respiratory Exam Respiratory Exam: Decreased Breath Sounds - Cardiovascular Exam Cardiovascular Exam: REGULAR RHYTHM - GI/Abdominal Exam GI & Abdominal Exam: Normal Bowel Sounds - Rectal Exam Rectal Exam: Deferred - Extremities Exam Extremities Exam: absent: Pedal Edema - Back Exam Back Exam: NORMAL INSPECTION - Neurological Exam Neurological Exam: Alert - Psychiatric Exam Psychiatric exam: Normal Affect - Skin Skin Exam: Normal Color Assessment and Plan (1) NSTEMI (non-ST elevated myocardial infarction) Assessment & Plan: given elevated troponin and symptoms, recommend cardiac cath. patient agrees NPO after breakfast Status: Acute (2) Chronic atrial fibrillation Assessment & Plan: will hold anticaogulation for cardiac cath Status: Acute (3) HTN (hypertension) Assessment & Plan: blood pressure control Status: Acute
--- NOTE | 2018-05-18 21:33 | CARD ---
APPROVED REPORT Date of service: 05/16/2018 EKG Measurement Heart [id number] <Conclusion> Ventricular-paced rhythm Abnormal ECG
--- NOTE | 2018-05-18 23:07 | CARD ---
APPROVED REPORT Date of service: 05/17/2018 EKG Measurement Heart [id number] <Conclusion> Ventricular-paced rhythm Abnormal ECG
[2018-05-19] MEDS: Albuterol 0.083% Inhal Sol (2.5 mg/3 mL) UD INH SCH ×4 (00:15→22:40)
[2018-05-19] MEDS: (Novolog) Insulin Aspart, Recombinant 100 u/ml 10 ml vial SC SCH ×7 (07:52→22:42)
[2018-05-19 08:13] LABS: BASO % 0.3 % (0.0-2.0); EOS # 0.2 K/uL (0.0-0.7); EOS % 1.6 % (0.0-4.0); HEMOGLOBIN 10.9 g/dL (11.0-16.0); LYMPH # 1.5 K/uL (1.0-4.3); MEAN CELL VOLUME 77.1 fL (81.0-99.0); MEAN CORPUSCULAR HEMOGLOBIN 25.4 pg (27.0-31.0); MEAN PLATELET VOLUME 9.8 fL (7.2-11.7); MONO # 0.6 K/uL (0.0-0.8); NEUT % 81.1 % (50.0-75.0); RBC 4.3 Mil/uL (3.80-5.20); WHITE BLOOD COUNT 12.3 K/uL (4.8-10.8)
[2018-05-19 08:19] LABS: ALB/GLOB RATIO 1.2 (1.0-2.1); ALT/SGPT 24 U/L (9-52); AST/SGOT 16 U/L (14-36); BLOOD UREA NITROGEN 32 mg/dL (7-17); CALCIUM 8.2 mg/dl (8.6-10.4); GFR NON-AFRICAN AMERICAN 55
[2018-05-19] MEDS: Omega-3-Acid Ethyl Esters 1 GM Cap PO SCH ×2 (09:49→18:41)
[2018-05-19] MEDS: diltiaZEM 120 mg/24 Hours CD Cap PO SCH (09:49)
[2018-05-19] MEDS: Insulin Detemir 100 units/ml Vial (Levemir) SC SCH (09:49)
[2018-05-19] MEDS: Pantoprazole 40 mg EC Tab PO SCH (09:50)
--- NOTE | 2018-05-19 12:30 | CT ---
Date of service: 05/18/2018 PROCEDURE: CT Chest without contrast HISTORY: bleeding hemoptysis COMPARISON: Not available TECHNIQUE: Contiguous axial images were obtained through the chest without intravenous contrast enhancement. Sagittal and coronal reconstructions were performed. Radiation dose (DLP): 840.58 mGy-cm. This CT exam was performed using one or more of the following dose reduction techniques: Automated exposure control, adjustment of the mA and/or kV according to patient size, and/or use of iterative reconstruction technique. FINDINGS: LUNGS: Multi lobar pulmonary infiltrates sparing only the left lower lobe. Infectious versus inflammatory versus pulmonary edema. No pulmonary mass. MEDIASTINUM: No aneurysmal dilatation of thoracic aorta. There is atherosclerotic calcification of the thoracic aorta. Mild cardiomegaly. Permanent pacemaker. No pericardial effusion. Dilatation of main pulmonary artery to a diameter of 3.5 cm. This may correlate with pulmonary arterial hypertension. No lymphadenopathy. PLEURA: No pleural fluid. No pneumothorax. BONES: No fracture. No destructive lesion. UPPER ABDOMEN: 2.2 cm right upper pole renal cortical cyst, 3 Hounsfield units attenuation. OTHER FINDINGS: None. IMPRESSION: Multi lobar bilateral pulmonary infiltrates. Nonspecific. See above. Cardiomegaly. Dilated main pulmonary artery. Permanent pacemaker.
--- NOTE | 2018-05-19 17:50 | CP.PCM.PN ---
Subjective - Date & Time of Evaluation Date of Evaluation: 05/19/18 - Subjective Subjective: Patient had cardiac cath today Normal coronaries per Dr. Ortiz Objective - Vital Signs/Intake and Output Vital Signs (last 24 hours): Temp Pulse Resp BP Pulse Ox 97.6 F 70 18 111/56 L 98 05/19/18 07:00 05/19/18 12:03 05/19/18 07:00 05/19/18 07:00 05/19/18 12:03 Intake and Output: 05/19/18 05/19/18 06:59 18:59 Intake Total 240 Output Total 500 Balance -260 - Medications Medications: Current Medications Albuterol Sulfate (Albuterol 0.083% Inhal Dunia (2.5 Mg/3 Ml) Ud) 2.5 mg INH RQ4 [facility] Last Admin: 05/19/18 06:20 Dose: Not Given Alprazolam (Xanax) 0.25 mg PO BID PRN PRN Reason: Anxiety Stop: 05/23/18 22:19 Last Admin: 05/18/18 10:07 Dose: 0.25 mg Aspirin (Ecotrin) 81 mg PO DAILY [facility] Last Admin: 05/19/18 09:49 Dose: Not Given Budesonide (Pulmicort Respules) 0.5 mg INH RQ12 [facility] Last Admin: 05/18/18 19:55 Dose: Not Given Diltiazem HCl (Cardizem Cd) 120 mg PO DAILY [facility] Last Admin: 05/19/18 09:49 Dose: Not Given Ezetimibe (Zetia) 10 mg PO HS [facility] Last Admin: 05/18/18 21:27 Dose: 10 mg Furosemide (Lasix) 20 mg PO DAILY [facility] Last Admin: 05/19/18 09:49 Dose: Not Given Insulin Aspart (Novolog) 0 unit SC ACHS [facility]; Protocol Last Admin: 05/19/18 07:53 Dose: Not Given Insulin Aspart (Novolog) 10 unit SC AC [facility] Last Admin: 05/19/18 07:52 Dose: Not Given Insulin Detemir (Levemir) 22 unit SC DAILY [facility] Last Admin: 05/19/18 09:49 Dose: Not Given Metoprolol Tartrate (Lopressor) 25 mg PO BIDBS [facility] Last Admin: 05/19/18 06:42 Dose: 25 mg Metronidazole (Flagyl) 500 mg PO Q8 [facility]; Protocol Last Admin: 05/19/18 05:31 Dose: 500 mg Montelukast Sodium (Singulair) 10 mg PO HS [facility] Last Admin: 05/18/18 21:27 Dose: 10 mg Igccy-3-Gvxs Ethyl Esters (Lovaza) 1 gm PO BID [facility] Last Admin: 05/19/18 09:49 Dose: Not Given Oxycodone/Acetaminophen (Percocet 5/325 Mg Tab) 1 tab PO Q8H PRN PRN Reason: Pain, moderate (4-7) Stop: 05/19/18 22:08 Last Admin: 05/18/18 11:09 Dose: 1 tab Pantoprazole Sodium (Protonix Ec Tab) 40 mg PO DAILY [facility] Last Admin: 05/19/18 09:50 Dose: Not Given Rosuvastatin Calcium (Crestor) 20 mg PO [facility] Last Admin: 05/18/18 21:27 Dose: 20 mg Sitagliptin Phosphate (Januvia) 50 mg PO DAILY [facility] Last Admin: 05/19/18 09:49 Dose: Not Given - Labs Labs: 05/19/18 07:54 05/19/18 07:54 Assessment and Plan - Assessment and Plan (Free Text) Plan: 1. Cardiac normal coronaries 2. ashthma cont meds abx for bronchitis 3. diabetes better off steroids bmp in AM home soon
--- NOTE | 2018-05-19 20:26 | CP.PCM.PN ---
Subjective - Date & Time of Evaluation Date of Evaluation: 05/19/18 Time of Evaluation: 20:19 - Subjective Subjective: pt is still having cough and thick mucus with blood noted satish color noted blood also noted thick chest pain on and off wheezing noted no fever today no nausea today pt underwent angiogram reported normal coronaries done by at [facility] [place] chest diffuse pneumonia and alveolitis noted will repeat CXR ? hemoptysis r/o vasculitis will start the antibiotic for possible PNA will f/u Objective - Vital Signs/Intake and Output Vital Signs (last 24 hours): Temp Pulse Resp BP Pulse Ox 97.5 F L 70 18 140/66 97 05/19/18 19:50 05/19/18 19:50 05/19/18 19:50 05/19/18 19:50 05/19/18 19:50 - Medications Medications: Current Medications Albuterol Sulfate (Albuterol 0.083% Inhal Dunia (2.5 Mg/3 Ml) Ud) 2.5 mg INH RQ4 [facility] Last Admin: 05/19/18 06:20 Dose: Not Given Alprazolam (Xanax) 0.25 mg PO BID PRN PRN Reason: Anxiety Stop: 05/23/18 22:19 Last Admin: 05/18/18 10:07 Dose: 0.25 mg Aspirin (Ecotrin) 81 mg PO DAILY [facility] Last Admin: 05/19/18 09:49 Dose: Not Given Budesonide (Pulmicort Respules) 0.5 mg INH RQ12 [facility] Last Admin: 05/18/18 19:55 Dose: Not Given Diltiazem HCl (Cardizem Cd) 120 mg PO DAILY [facility] Last Admin: 05/19/18 09:49 Dose: Not Given Ezetimibe (Zetia) 10 mg PO HS [facility] Last Admin: 05/18/18 21:27 Dose: 10 mg Furosemide (Lasix) 20 mg PO DAILY [facility] Last Admin: 05/19/18 09:49 Dose: Not Given Insulin Aspart (Novolog) 0 unit SC ACHS [facility]; Protocol Last Admin: 05/19/18 07:53 Dose: Not Given Insulin Aspart (Novolog) 10 unit SC AC [facility] Last Admin: 05/19/18 07:52 Dose: Not Given Insulin Detemir (Levemir) 22 unit SC DAILY [facility] Last Admin: 05/19/18 09:49 Dose: Not Given Metoprolol Tartrate (Lopressor) 25 mg PO BIDBS [facility] Last Admin: 05/19/18 06:42 Dose: 25 mg Metronidazole (Flagyl) 500 mg PO Q8 [facility]; Protocol Last Admin: 05/19/18 05:31 Dose: 500 mg Montelukast Sodium (Singulair) 10 mg PO HS [facility] Last Admin: 05/18/18 21:27 Dose: 10 mg Swddd-7-Cjju Ethyl Esters (Lovaza) 1 gm PO BID [facility] Last Admin: 05/19/18 09:49 Dose: Not Given Oxycodone/Acetaminophen (Percocet 5/325 Mg Tab) 1 tab PO Q8H PRN PRN Reason: Pain, moderate (4-7) Stop: 05/19/18 22:08 Last Admin: 05/18/18 11:09 Dose: 1 tab Pantoprazole Sodium (Protonix Ec Tab) 40 mg PO DAILY [facility] Last Admin: 05/19/18 09:50 Dose: Not Given Rosuvastatin Calcium (Crestor) 20 mg PO HS [facility] Last Admin: 05/18/18 21:27 Dose: 20 mg Sitagliptin Phosphate (Januvia) 50 mg PO DAILY [facility] Last Admin: 05/19/18 09:49 Dose: Not Given - Labs Labs: 05/19/18 07:54 05/19/18 07:54
[2018-05-19] MEDS: Piperacillin/Tazobact 3.375 GM in Sodium Chloride 100 ML IVPB SCH (21:23)
[2018-05-19] MEDS: Oxycodone/Acetaminophen 5/325 mg Tab PO PRN (22:21)
[2018-05-19] MEDS: Budesonide 0.5 mg/2 ml Inhal Susp UD INH SCH (22:40)
[2018-05-20] MEDS: Albuterol 0.083% Inhal Sol (2.5 mg/3 mL) UD INH SCH ×6 (00:07→20:00)
[2018-05-20] MEDS: Piperacillin/Tazobact 3.375 GM in Sodium Chloride 100 ML IVPB SCH ×2 (04:25→22:57)
[2018-05-20] MEDS: (Novolog) Insulin Aspart, Recombinant 100 u/ml 10 ml vial SC SCH ×7 (07:30→22:15)
[2018-05-20 07:48] LABS: BASO % 0.4 % (0.0-2.0); EOS # 0.3 K/uL (0.0-0.7); EOS % 3.1 % (0.0-4.0); HEMOGLOBIN 11.2 g/dL (11.0-16.0); LYMPH # 1.4 K/uL (1.0-4.3); LYMPH % 15.3 % (20.0-40.0); MEAN CELL VOLUME 76.6 fL (81.0-99.0); MEAN CORPUSCULAR HEMOGLOBIN 25.6 pg (27.0-31.0); MEAN CORPUSCULAR HGB CONC 33.4 g/dL (33.0-37.0); MEAN PLATELET VOLUME 9.5 fL (7.2-11.7); MONO # 0.6 K/uL (0.0-0.8); MONO % 6.5 % (0.0-10.0); NEUT # 6.7 K/uL (1.8-7.0); NEUT % 74.7 % (50.0-75.0); NRBC % 0.1 % (0.0-2.0); RBC 4.36 Mil/uL (3.80-5.20); RED CELL DISTRIBUTION WIDTH 16.2 % (11.5-14.5); WHITE BLOOD COUNT 8.9 K/uL (4.8-10.8)
[2018-05-20 08:37] LABS: INR 1.2; PROTHROMBIN TIME 12.9 SECONDS (9.7-12.2)
--- NOTE | 2018-05-20 08:40 | RAD ---
Date of service: 05/20/2018 HISTORY: pneumonia COMPARISON: 05/17/2018 FINDINGS: LUNGS: Multifocal patchy opacity in the right lung. Patchy opacity left upper lobe. Possible bilateral pneumonia. In comparison to the prior examination, there is no significant interval change noted. PLEURA: No significant pleural effusion identified, no pneumothorax apparent. CARDIOVASCULAR: Normal heart size. Permanent pacemaker. Congestive change. OSSEOUS STRUCTURES: Right shoulder calcific tendinitis. VISUALIZED UPPER ABDOMEN: Normal. OTHER FINDINGS: None. IMPRESSION: Multifocal bilateral pulmonary infiltrates, not significantly changed from 05/17/2018. Mild congestive change. Permanent pacemaker.
[2018-05-20 08:41] LABS: ALB/GLOB RATIO 1.1 (1.0-2.1); ALBUMIN 3.1 g/dL (3.5-5.0); ALT/SGPT 24 U/L (9-52); AST/SGOT 24 U/L (14-36); BLOOD UREA NITROGEN 23 mg/dL (7-17); CALCIUM 8.8 mg/dl (8.6-10.4); GFR NON-AFRICAN AMERICAN > 60
[2018-05-20] MEDS: Budesonide 0.5 mg/2 ml Inhal Susp UD INH SCH ×2 (08:43→20:02)
[2018-05-20 08:52] LABS: COMPLEMENT C4 49.1 mg/dL (14.0-44.0)
[2018-05-20] MEDS: Omega-3-Acid Ethyl Esters 1 GM Cap PO SCH ×2 (09:46→19:00)
[2018-05-20] MEDS: Pantoprazole 40 mg EC Tab PO SCH (09:46)
[2018-05-20] MEDS: diltiaZEM 120 mg/24 Hours CD Cap PO SCH (09:58)
[2018-05-20] MEDS: Insulin Detemir 100 units/ml Vial (Levemir) SC SCH (10:02)
--- NOTE | 2018-05-20 11:58 | CARD ---
APPROVED REPORT Date of service: 05/17/2018 EKG Measurement Heart [id number] <Conclusion> ventricular paced rhythm Left axis deviation Nonspecific intraventricular block Possible Lateral infarct, age undetermined Inferior infarct, age undetermined Abnormal ECG
--- NOTE | 2018-05-20 19:47 | CP.PCM.PN ---
Subjective - Date & Time of Evaluation Date of Evaluation: 05/20/18 Time of Evaluation: 19:45 - Subjective Subjective: pt today has no fever cough better sputum clearing no blood today pt feels hungry eating better chest clear lungs regular hs abd soft repeat cxr- worsening infiltrate sputum culture pending on zosyn on o2 if she gets hemoptysis again she may need bronch will f/u Objective - Vital Signs/Intake and Output Vital Signs (last 24 hours): Temp Pulse Resp BP Pulse Ox 98.1 F 70 18 120/65 96 05/20/18 15:00 05/20/18 15:00 05/20/18 15:00 05/20/18 19:41 05/20/18 15:00 Intake and Output: 05/20/18 05/21/18 18:59 06:59 Intake Total 650 Balance 650 - Medications Medications: Current Medications Albuterol Sulfate (Albuterol 0.083% Inhal Dunia (2.5 Mg/3 Ml) Ud) 2.5 mg INH RQ4 [facility] Last Admin: 05/20/18 15:56 Dose: 2.5 mg Alprazolam (Xanax) 0.25 mg PO BID PRN PRN Reason: Anxiety Stop: 05/23/18 22:19 Last Admin: 05/18/18 10:07 Dose: 0.25 mg Budesonide (Pulmicort Respules) 0.5 mg INH RQ12 [facility] Last Admin: 05/20/18 08:43 Dose: 0.5 mg Diltiazem HCl (Cardizem Cd) 120 mg PO DAILY [facility] Last Admin: 05/20/18 09:58 Dose: 120 mg Ezetimibe (Zetia) 10 mg PO HS [facility] Last Admin: 05/19/18 22:20 Dose: 10 mg Furosemide (Lasix) 20 mg PO DAILY [facility] Last Admin: 05/20/18 09:46 Dose: 20 mg Piperacillin Sod/Tazobactam (Sod 3.375 gm/ Sodium Chloride) 100 mls @ 200 mls/hr IVPB Q8H [facility]; Protocol Last Admin: 05/20/18 04:25 Dose: 200 mls/hr Insulin Aspart (Novolog) 0 unit SC ACHS [facility]; Protocol Last Admin: 05/20/18 17:30 Dose: Not Given Insulin Aspart (Novolog) 10 unit SC AC [facility] Last Admin: 05/20/18 17:30 Dose: Not Given Insulin Detemir (Levemir) 22 unit SC DAILY [facility] Last Admin: 05/20/18 10:02 Dose: Not Given Metoprolol Tartrate (Lopressor) 25 mg PO BIDBS [facility] Last Admin: 05/20/18 19:41 Dose: 25 mg Metronidazole (Flagyl) 500 mg PO Q8 [facility]; Protocol Last Admin: 05/20/18 05:28 Dose: 500 mg Montelukast Sodium (Singulair) 10 mg PO HS [facility] Last Admin: 05/19/18 22:20 Dose: 10 mg Kavfe-9-Oevq Ethyl Esters (Lovaza) 1 gm PO BID [facility] Last Admin: 05/20/18 19:00 Dose: 1 gm Pantoprazole Sodium (Protonix Ec Tab) 40 mg PO DAILY [facility] Last Admin: 05/20/18 09:46 Dose: 40 mg Rosuvastatin Calcium (Crestor) 20 mg PO HS [facility] Last Admin: 05/19/18 22:20 Dose: 20 mg Sitagliptin Phosphate (Januvia) 50 mg PO DAILY [facility] Last Admin: 05/20/18 09:46 Dose: 50 mg - Labs Labs: 05/20/18 07:35 05/20/18 07:35 PT 12.9 SECONDS (9.7-12.2) H 05/20/18 07:35 INR 1.2 05/20/18 07:35 APTT 34 SECONDS (21-34) 05/20/18 07:35
[2018-05-21] MEDS: Albuterol 0.083% Inhal Sol (2.5 mg/3 mL) UD INH SCH ×6 (00:40→19:17)
[2018-05-21 01:44] VITALS: PULSE 70
[2018-05-21] MEDS: Piperacillin/Tazobact 3.375 GM in Sodium Chloride 100 ML IVPB SCH ×3 (05:13→20:05)
[2018-05-21] MEDS: Budesonide 0.5 mg/2 ml Inhal Susp UD INH SCH ×2 (07:25→19:17)
[2018-05-21] MEDS: (Novolog) Insulin Aspart, Recombinant 100 u/ml 10 ml vial SC SCH ×9 (08:05→21:14)
[2018-05-21] MEDS: Insulin Detemir 100 units/ml Vial (Levemir) SC SCH (10:31)
[2018-05-21] MEDS: Omega-3-Acid Ethyl Esters 1 GM Cap PO SCH ×2 (10:31→19:10)
[2018-05-21] MEDS: diltiaZEM 120 mg/24 Hours CD Cap PO SCH (10:31)
[2018-05-21] MEDS: Pantoprazole 40 mg EC Tab PO SCH (10:32)
[2018-05-21 16:29] VITALS: RESP 20
[2018-05-21] MEDS ORDERED: Oxycodone/Acetaminophen 5/325 mg Tab PO PRN (17:36)
--- NOTE | 2018-05-21 17:42 | CP.PCM.PN ---
Subjective - Date & Time of Evaluation Date of Evaluation: 05/21/18 Time of Evaluation: 17:42 - Subjective Subjective: pt feeling better tonight was agitated this AM , but now ok pt state less sob not coughing up blood like before, very little mixed with sptum Objective - Vital Signs/Intake and Output Vital Signs (last 24 hours): Temp Pulse Resp BP Pulse Ox 97.5 F L 70 20 136/73 99 05/21/18 16:00 05/21/18 16:00 05/21/18 16:00 05/21/18 16:00 05/21/18 16:00 Intake and Output: 05/21/18 05/21/18 06:59 18:59 Intake Total 240 600 Balance 240 600 - Medications Medications: Current Medications Albuterol Sulfate (Albuterol 0.083% Inhal Dunia (2.5 Mg/3 Ml) Ud) 2.5 mg INH RQ4 [facility] Last Admin: 05/21/18 15:52 Dose: 2.5 mg Alprazolam (Xanax) 0.25 mg PO BID PRN PRN Reason: Anxiety Stop: 05/23/18 22:19 Last Admin: 05/18/18 10:07 Dose: 0.25 mg Budesonide (Pulmicort Respules) 0.5 mg INH RQ12 [facility] Last Admin: 05/21/18 07:25 Dose: Not Given Diltiazem HCl (Cardizem Cd) 120 mg PO DAILY [facility] Last Admin: 05/21/18 10:31 Dose: Not Given Ezetimibe (Zetia) 10 mg PO HS [facility] Last Admin: 05/20/18 22:57 Dose: Not Given Furosemide (Lasix) 20 mg PO DAILY [facility] Last Admin: 05/21/18 10:31 Dose: Not Given Piperacillin Sod/Tazobactam (Sod 3.375 gm/ Sodium Chloride) 100 mls @ 200 mls/ hr IVPB Q8H [facility]; Protocol Last Admin: 05/21/18 13:55 Dose: 200 mls/hr Insulin Aspart (Novolog) 0 unit SC ACHS [facility]; Protocol Last Admin: 05/21/18 17:31 Dose: Not Given Insulin Aspart (Novolog) 10 unit SC AC [facility] Last Admin: 05/21/18 13:56 Dose: 10 units Insulin Detemir (Levemir) 22 unit SC DAILY [facility] Last Admin: 05/21/18 10:31 Dose: Not Given Metoprolol Tartrate (Lopressor) 25 mg PO BIDBS [facility] Last Admin: 05/21/18 08:17 Dose: Not Given Metronidazole (Flagyl) 500 mg PO Q8 [facility]; Protocol Last Admin: 05/21/18 14:39 Dose: 500 mg Montelukast Sodium (Singulair) 10 mg PO HS [facility] Last Admin: 05/20/18 22:56 Dose: 10 mg Enwye-2-Eeun Ethyl Esters (Lovaza) 1 gm PO BID [facility] Last Admin: 05/21/18 10:31 Dose: Not Given Oxycodone/Acetaminophen (Percocet 5/325 Mg Tab) 1 tab PO Q6H PRN PRN Reason: Pain, moderate (4-7) Stop: 05/24/18 17:37 Pantoprazole Sodium (Protonix Ec Tab) 40 mg PO DAILY [facility] Last Admin: 05/21/18 10:32 Dose: Not Given Rosuvastatin Calcium (Crestor) 20 mg PO HS [facility] Last Admin: 05/20/18 22:56 Dose: 20 mg Sitagliptin Phosphate (Januvia) 50 mg PO DAILY [facility] Last Admin: 05/21/18 10:31 Dose: Not Given - Labs Labs: 05/20/18 07:35 05/20/18 07:35 PT 12.9 SECONDS (9.7-12.2) H 05/20/18 07:35 INR 1.2 05/20/18 07:35 APTT 34 SECONDS (21-34) 05/20/18 07:35 - Constitutional Appears: Well, Non-toxic - Eye Exam Eye Exam: Normal appearance - ENT Exam ENT Exam: Mucous Membranes Moist - Respiratory Exam Respiratory Exam: Wheezes (less wheezing) - Cardiovascular Exam Cardiovascular Exam: REGULAR RHYTHM, RRR, +S1, +S2. absent: JVD Assessment and Plan - Assessment and Plan (Free Text) Assessment: Pulm reviewed ct and discussed case with DR. Ennis yesterday pt with bl infiltrate ; responding to abx dilated PUlm artery ; likely a component of Pulm HTN cont current tx she may have bronch out if insists to go home tomorrow as she is feeling bettter will discuss with pulm diabetes better chronic pain and percocet dependence bmp in AM
--- NOTE | 2018-05-21 17:54 | CP.PCM.PN ---
Subjective - Date & Time of Evaluation Date of Evaluation: 05/21/18 Time of Evaluation: 17:53 - Subjective Subjective: Patient currently having no active hemoptysis. Coughing better than before. Less mucus noted. She has no shortness of breath, saturation is better. Otherwise patient is feeling well Vital signs and blood pressure stable. No saturation is stable Chest bilateral wheezing minimal expiratory noted Edema 1+ bilaterally noted As the patient does not have any hemoptysis and she is responding to antibiotic we will treat with antibiotic. If again have a hemoptysis may attempt to do the bronchi otherwise will do as an outpatient. Objective - Vital Signs/Intake and Output Vital Signs (last 24 hours): Temp Pulse Resp BP Pulse Ox 97.5 F L 70 20 136/75 99 05/21/18 16:00 05/21/18 16:00 05/21/18 16:00 05/21/18 17:52 05/21/18 16:00 Intake and Output: 05/21/18 05/21/18 06:59 18:59 Intake Total 240 600 Balance 240 600 - Medications Medications: Current Medications Albuterol Sulfate (Albuterol 0.083% Inhal Dunia (2.5 Mg/3 Ml) Ud) 2.5 mg INH RQ4 [facility] Last Admin: 05/21/18 15:52 Dose: 2.5 mg Alprazolam (Xanax) 0.25 mg PO BID PRN PRN Reason: Anxiety Stop: 05/23/18 22:19 Last Admin: 05/18/18 10:07 Dose: 0.25 mg Budesonide (Pulmicort Respules) 0.5 mg INH RQ12 [facility] Last Admin: 05/21/18 07:25 Dose: Not Given Diltiazem HCl (Cardizem Cd) 120 mg PO DAILY [facility] Last Admin: 05/21/18 10:31 Dose: Not Given Ezetimibe (Zetia) 10 mg PO HS [facility] Last Admin: 05/20/18 22:57 Dose: Not Given Furosemide (Lasix) 20 mg PO DAILY [facility] Last Admin: 05/21/18 10:31 Dose: Not Given Piperacillin Sod/Tazobactam (Sod 3.375 gm/ Sodium Chloride) 100 mls @ 200 mls/hr IVPB Q8H [facility]; Protocol Last Admin: 05/21/18 13:55 Dose: 200 mls/hr Insulin Aspart (Novolog) 0 unit SC ACHS [facility]; Protocol Last Admin: 05/21/18 17:31 Dose: Not Given Insulin Aspart (Novolog) 10 unit SC AC [facility] Last Admin: 05/21/18 13:56 Dose: 10 units Insulin Detemir (Levemir) 22 unit SC DAILY [facility] Last Admin: 05/21/18 10:31 Dose: Not Given Methylprednisolone (Solu-Medrol) 20 mg IVP Q12 [facility] Stop: 05/23/18 22:01 Metoprolol Tartrate (Lopressor) 25 mg PO BIDBS [facility] Last Admin: 05/21/18 17:52 Dose: 25 mg Metronidazole (Flagyl) 500 mg PO Q8 [facility]; Protocol Last Admin: 05/21/18 14:39 Dose: 500 mg Montelukast Sodium (Singulair) 10 mg PO HS [facility] Last Admin: 05/20/18 22:56 Dose: 10 mg Nfzlv-3-Aqlz Ethyl Esters (Lovaza) 1 gm PO BID [facility] Last Admin: 05/21/18 10:31 Dose: Not Given Oxycodone/Acetaminophen (Percocet 5/325 Mg Tab) 1 tab PO Q6H PRN PRN Reason: Pain, moderate (4-7) Stop: 05/24/18 17:37 Pantoprazole Sodium (Protonix Ec Tab) 40 mg PO DAILY [facility] Last Admin: 05/21/18 10:32 Dose: Not Given Rosuvastatin Calcium (Crestor) 20 mg PO HS [facility] Last Admin: 05/20/18 22:56 Dose: 20 mg Sitagliptin Phosphate (Januvia) 50 mg PO DAILY [facility] Last Admin: 05/21/18 10:31 Dose: Not Given - Labs Labs: 05/20/18 07:35 05/20/18 07:35 PT 12.9 SECONDS (9.7-12.2) H 05/20/18 07:35 INR 1.2 05/20/18 07:35 APTT 34 SECONDS (21-34) 05/20/18 07:35
[2018-05-21] MEDS ORDERED: MethylPREDNISolone 40 mg Vial IVP SCH (22:00)
[2018-05-22] MEDS: Albuterol 0.083% Inhal Sol (2.5 mg/3 mL) UD INH SCH ×3 (00:25→07:36)
[2018-05-22] MEDS: Piperacillin/Tazobact 3.375 GM in Sodium Chloride 100 ML IVPB SCH ×2 (05:19→13:50)
[2018-05-22] MEDS: Budesonide 0.5 mg/2 ml Inhal Susp UD INH SCH (07:36)
[2018-05-22] MEDS: (Novolog) Insulin Aspart, Recombinant 100 u/ml 10 ml vial SC SCH ×3 (08:00→12:00)
[2018-05-22 08:07] LABS: BLOOD UREA NITROGEN 14 mg/dL (7-17); CALCIUM 8.4 mg/dl (8.6-10.4); GFR NON-AFRICAN AMERICAN > 60
[2018-05-22 08:39] VITALS: TEMP 97.9; O2SAT 96
[2018-05-22] MEDS ORDERED: Sod Polystyrene Sulf 15 gm/60 ml Susp PO ONE ×5 (08:57→11:15)
[2018-05-22] MEDS ORDERED: Omega-3-Acid Ethyl Esters 1 GM Cap PO SCH (11:00)
[2018-05-22] MEDS ORDERED: Pantoprazole 40 mg EC Tab PO SCH (11:00)
[2018-05-22] MEDS ORDERED: Oxycodone/Acetaminophen 5/325 mg Tab PO PRN (11:00)
[2018-05-22] MEDS ORDERED: Budesonide 0.5 mg/2 ml Inhal Susp UD INH SCH (11:00)
[2018-05-22] MEDS ORDERED: diltiaZEM 120 mg/24 Hours CD Cap PO SCH (11:00)
[2018-05-22] MEDS ORDERED: Insulin Detemir 100 units/ml Vial (Levemir) SC SCH (11:00)
[2018-05-22] MEDS ORDERED: (Novolog) Insulin Aspart, Recombinant 100 u/ml 10 ml vial SC SCH ×2 (11:30)
[2018-05-22 11:31] VITALS: BP 147/68
[2018-05-22] MEDS ORDERED: Albuterol 0.083% Inhal Sol (2.5 mg/3 mL) UD INH SCH (12:00)
[2018-05-22 14:40] LABS: BLOOD UREA NITROGEN 15 mg/dL (7-17); CALCIUM 9.2 mg/dl (8.6-10.4); GFR NON-AFRICAN AMERICAN > 60
--- NOTE | 2018-05-22 14:59 | CP.PCM.DIS ---
Provider - Provider Date of Admission: 05/16/18 12:00 Attending physician: Kenia Tucker MD Hospital Course - Lab Results Lab Results: Micro Results 05/17/18 06:46 Blood-Venous Blood Culture - Final NO GROWTH AFTER 5 DAYS 05/17/18 06:46 Blood-Venous Gram Stain - Final TEST NOT PERFORMED 05/17/18 06:46 Blood-Venous Blood Culture - Final NO GROWTH AFTER 5 DAYS 05/17/18 06:46 Blood-Venous Gram Stain - Final TEST NOT PERFORMED Most Recent Lab Values WBC 8.9 K/uL (4.8-10.8) 05/20/18 07:35 RBC 4.36 Mil/uL (3.80-5.20) 05/20/18 07:35 Hgb 11.2 g/dL (11.0-16.0) 05/20/18 07:35 Hct 33.4 % (34.0-47.0) L 05/20/18 07:35 MCV 76.6 fL (81.0-99.0) L 05/20/18 07:35 MCH 25.6 pg (27.0-31.0) L 05/20/18 07:35 MCHC 33.4 g/dL (33.0-37.0) 05/20/18 07:35 RDW 16.2 % (11.5-14.5) H 05/20/18 07:35 Plt Count 258 K/uL (130-400) 05/20/18 07:35 MPV 9.5 fL (7.2-11.7) 05/20/18 07:35 Neut % (Auto) 74.7 % (50.0-75.0) 05/20/18 07:35 Lymph % (Auto) 15.3 % (20.0-40.0) L 05/20/18 07:35 [place] % (Auto) 6.5 % (0.0-10.0) 05/20/18 07:35 Eos % (Auto) 3.1 % (0.0-4.0) 05/20/18 07:35 Baso % (Auto) 0.4 % (0.0-2.0) 05/20/18 07:35 Neut # (Auto) 6.7 K/uL (1.8-7.0) 05/20/18 07:35 Lymph # (Auto) 1.4 K/uL (1.0-4.3) 05/20/18 07:35 [place] # (Auto) 0.6 K/uL (0.0-0.8) 05/20/18 07:35 Eos # (Auto) 0.3 K/uL (0.0-0.7) 05/20/18 07:35 Baso # (Auto) 0.0 K/uL (0.0-0.2) 05/20/18 07:35 Neutrophils % (Manual) 85 % (50-75) H 05/16/18 11:46 Lymphocytes % (Manual) 13 % (20-40) L 05/16/18 11:46 Monocytes % (Manual) 1 % (0-10) 05/16/18 11:46 Eosinophils % (Manual) 1 % (0-4) 05/16/18 11:46 Platelet Estimate Normal (NORMAL) 05/16/18 11:46 Large Platelets Present 05/16/18 11:46 Anisocytosis (manual) Slight 05/16/18 11:46 ESR 54 mm/hr (0-20) H 05/20/18 07:35 PT 12.9 SECONDS (9.7-12.2) H 05/20/18 07:35 INR 1.2 05/20/18 07:35 APTT 34 SECONDS (21-34) 05/20/18 07:35 Sodium 142 mmol/L (132-148) 05/22/18 14:22 Potassium 4.8 mmol/L (3.6-5.2) 05/22/18 14:22 Chloride 101 mmol/L (98-107) 05/22/18 14:22 Carbon Dioxide 26 mmol/L (22-30) 05/22/18 14:22 Anion Gap 20 (10-20) 05/22/18 14:22 BUN 15 mg/dL (7-17) 05/22/18 14:22 Creatinine 0.8 mg/dL (0.7-1.2) 05/22/18 14:22 Est GFR ( Amer) > 60 05/22/18 14:22 Est GFR (Non-Af Amer) > 60 05/22/18 14:22 POC Glucose (mg/dL) 296 mg/dL (65-110) H 05/22/18 11:11 Random Glucose 261 mg/dL (65-105) H 05/22/18 14:22 Calcium 9.2 mg/dl (8.6-10.4) 05/22/18 14:22 Phosphorus 4.2 mg/dL (2.5-4.5) 05/20/18 07:35 Magnesium 1.9 mg/dL (1.6-2.3) 05/20/18 07:35 Total Bilirubin 0.3 mg/dL (0.2-1.3) 05/20/18 07:35 AST 24 U/L (14-36) 05/20/18 07:35 ALT 24 U/L (9-52) 05/20/18 07:35 Alkaline Phosphatase 62 U/L (38-126) 05/20/18 07:35 Lactate Dehydrogenase 459 U/L (313-618) 05/20/18 07:35 Total Creatine Kinase 88 U/L (30-135) 05/17/18 06:46 CK-MB (Mass) 1.89 ng/mL (0.0-3.38) 05/17/18 06:46 Troponin I 0.2850 ng/mL (0.00-0.120) H* 05/17/18 06:46 C-Reactive Protein 46.90 mg/L (0.0-9.9) H 05/20/18 07:35 NT-Pro-B Natriuret Pep 2310 pg/mL (0-900) H 05/16/18 10:46 Total Protein 5.8 g/dL (6.3-8.3) L 05/20/18 07:35 Albumin 3.1 g/dL (3.5-5.0) L 05/20/18 07:35 Globulin 2.7 gm/dL (2.2-3.9) 05/20/18 07:35 Albumin/Globulin Ratio 1.1 (1.0-2.1) 05/20/18 07:35 Procalcitonin 0.07 NG/ML (0.19-0.49) L 05/20/18 07:35 Urine Color Straw (YELLOW) 05/17/18 00:15 Urine Clarity Clear (Clear) 05/17/18 00:15 Urine pH 5.0 (5.0-8.0) 05/17/18 00:15 Ur Specific [place] 1.006 (1.003-1.030) 05/17/18 00:15 Urine Protein Negative mg/dL (NEGATIVE) 05/17/18 00:15 Urine Glucose (UA) 2+ mg/dL (Normal) H 05/17/18 00:15 Urine Ketones Negative mg/dL (NEGATIVE) 05/17/18 00:15 Urine Blood 1+ (NEGATIVE) H 05/17/18 00:15 Urine Nitrate Negative (NEGATIVE) 05/17/18 00:15 Urine Bilirubin Negative (NEGATIVE) 05/17/18 00:15 Urine Urobilinogen Normal mg/dL (0.2-1.0) 05/17/18 00:15 Ur Leukocyte Esterase Neg Katelyn/uL (Negative) 05/17/18 00:15 Urine WBC (Auto) < 1 /hpf (0-5) 05/17/18 00:15 Urine RBC (Auto) 1 /hpf (0-3) 05/17/18 00:15 Ur Squamous Epith Cells 1 /hpf (0-5) 05/17/18 00:15 Urine Bacteria Rare (<OCC) 05/17/18 00:15 Hyaline Casts 3-5 /lpf (0-2) H 05/17/18 00:15 DORON 6 Profile Negative (NEGATIVE) 05/20/18 07:35 Proteinase 3 (PR3) <1.0 AI (<1.0) 05/20/18 07:35 Myeloperoxidase Ab <1.0 AI (<1.0) 05/20/18 07:35 Complement C3 86.0 mg/dL (88.0-165.0) L 05/20/18 07:35 Complement C4 49.1 mg/dL (14.0-44.0) H 05/20/18 07:35 - Hospital Course Hospital Course: Pt admitted with sob armando + cath showed clean coronaries evaluated by pulm due to hemoptysis pt treated with abx, nebx, steroids with good response plan is to dc home with outp pulm follow up Discharge Exam - Head Exam Head Exam: NORMAL INSPECTION Discharge Plan - Discharge Medications Prescriptions: Aspirin [Ecotrin] 81 mg PO DAILY 30 Days tabec - Follow Up Plan Condition: GOOD Disposition: HOME/ ROUTINE Referrals: Kenia Tucker MD [Staff Provider] - Gloria Vazquez MD [Staff Provider] -
--- NOTE | 2018-05-22 15:12 | CP.PCM.PN ---
Subjective - Date & Time of Evaluation Date of Evaluation: 05/22/18 Time of Evaluation: 15:12 - Subjective Subjective: PATIENT SEEN AND EXAMINED AT THE BEDSIDE Objective - Vital Signs/Intake and Output Vital Signs (last 24 hours): Temp Pulse Resp BP Pulse Ox 97.9 F 70 20 147/68 96 05/22/18 08:00 05/22/18 08:00 05/22/18 08:00 05/22/18 11:28 05/22/18 08:00 - Medications Medications: Current Medications Albuterol Sulfate (Albuterol 0.083% Inhal Dunia (2.5 Mg/3 Ml) Ud) 2.5 mg INH RQ4 [facility] Last Admin: 05/22/18 11:03 Dose: 2.5 mg Alprazolam (Xanax) 0.25 mg PO BID PRN PRN Reason: Anxiety Stop: 05/29/18 10:52 Budesonide (Pulmicort Respules) 0.5 mg INH RQ12 [facility] Last Admin: 05/22/18 11:03 Dose: Not Given Diltiazem HCl (Cardizem Cd) 120 mg PO DAILY ON LICENSE OF [facility] Last Admin: 05/22/18 11:36 Dose: 120 mg Ezetimibe (Zetia) 10 mg PO HS ON LICENSE OF [facility] Furosemide (Lasix) 20 mg PO DAILY ON LICENSE OF [facility] Last Admin: 05/22/18 11:28 Dose: 20 mg Piperacillin Sod/Tazobactam (Sod 3.375 gm/ Sodium Chloride) 100 mls @ 200 mls/hr IVPB Q8H [facility]; Protocol Last Admin: 05/22/18 13:50 Dose: 200 mls/hr Insulin Aspart (Novolog) 10 unit SC AC [facility] Last Admin: 05/22/18 12:00 Dose: 10 units Insulin Aspart (Novolog) 0 unit SC ACHS [facility]; Protocol Last Admin: 05/22/18 12:00 Dose: 4 unit Insulin Detemir (Levemir) 22 unit SC DAILY ON [facility] OF [facility] Last Admin: 05/22/18 12:06 Dose: Not Given Methylprednisolone (Solu-Medrol) 20 mg IVP Q12 ON LICENSE OF [facility] Metoprolol Tartrate (Lopressor) 25 mg PO BIDBS ON LICENSE OF [facility] Metronidazole (Flagyl) 500 mg PO Q8 [facility]; Protocol Last Admin: 05/22/18 13:50 Dose: 500 mg Montelukast Sodium (Singulair) 10 mg PO HS ON LICENSE OF [facility] [id number] Ethyl Esters (Lovaza) 1 gm PO BID ON LICENSE OF [facility] Last Admin: 05/22/18 11:26 Dose: 1 gm Oxycodone/Acetaminophen (Percocet 5/325 Mg Tab) 1 tab PO Q6H PRN PRN Reason: Pain, moderate (4-7) Stop: 05/25/18 11:01 Pantoprazole Sodium (Protonix Ec Tab) 40 mg PO DAILY ON [facility] OF [facility] Last Admin: 05/22/18 11:26 Dose: 40 mg Rosuvastatin Calcium (Crestor) 20 mg PO HS ON LICENSE OF [facility] Sitagliptin Phosphate (Januvia) 50 mg PO DAILY ON [facility] OF [facility] Last Admin: 05/22/18 11:26 Dose: 50 mg Sitagliptin Phosphate (Januvia) 50 mg PO DAILY ON [facility] OF [facility] - Labs Labs: 05/20/18 07:35 05/22/18 14:22 PT 12.9 SECONDS (9.7-12.2) H 05/20/18 07:35 INR 1.2 05/20/18 07:35 APTT 34 SECONDS (21-34) 05/20/18 07:35 Assessment and Plan - Assessment and Plan (Free Text) Assessment: FOLLOW UP WITH DR BREAUX IN HER OFFICE ON FRIDAY 05/25------CALL FOR APPOINTMENT CONTINUE HOME MEDICATION NEW PRESCRIPTION GIVEN ASA 81 MG PO DAILY FLORASTOR 250 MG PO DAILY FOR 5 DAYS AVELOX 400 MG PO DAILY FOR 5 DAYS MEDROL DOSE PACK DAILY DIRECTED STOP TAKING YOUR POTASSIUM PILL UNTIL YOU SEE YOUR PMD ACTIVITY TOLERATED CALL DR BREAUX OR GO TO THE EMERGENCY ROOM IF SYMPTOM RETURN OR WORSENING
[2018-05-22] MEDS ORDERED: MethylPREDNISolone 40 mg Vial IVP SCH (22:00)
[2018-05-23] MEDS ORDERED: diltiaZEM 120 mg/24 Hours CD Cap PO SCH (10:00)
== END 2018-05-22 16:30 | disposition home or self-care (01) | DRG 280 ==
LOC: C.ER 09:19 → C.9E 12:00 → C.5S 16:35
PROVIDERS: ADMIT Internal Medicine; ATTEND Internal Medicine
DX: I21.4 Non-ST elevation (NSTEMI) myocardial infarction (principal); J18.9 Pneumonia, unspecified organism; Z68.41 Body mass index [BMI] 40.0-44.9, adult; J44.0 Chronic obstructive pulmonary disease with (acute) lower respiratory infection; E87.6 Hypokalemia; F41.9 Anxiety disorder, unspecified; F32.9 Major depressive disorder, single episode, unspecified; G47.30 Sleep apnea, unspecified; E66.9 Obesity, unspecified; I11.0 Hypertensive heart disease with heart failure; I25.10 Atherosclerotic heart disease of native coronary artery without angina pectoris; I27.20 Pulmonary hypertension, unspecified; I48.2 Chronic atrial fibrillation; I50.9 Heart failure, unspecified; Z79.4 Long term (current) use of insulin; Z79.82 Long term (current) use of aspirin; Z95.0 Presence of cardiac pacemaker; Z87.891 Personal history of nicotine dependence; Z79.891 Long term (current) use of opiate analgesic; E09.65 Drug or chemical induced diabetes mellitus with hyperglycemia; T38.0X5A Adverse effect of glucocorticoids and synthetic analogues, initial encounter; G89.29 Other chronic pain

== ENCOUNTER 2018-06-29 03:23 | Inpatient (IN) | payer MEDICARE, MEDICAID ==
--- NOTE | 2018-06-29 03:25 | C.PDOC ---
History Of Present Illness Pt with 2 days of worsening shortness of breath. Speaking in 1-2 word sentences. Was placed on bipap by ems. Slight improvement. Denies any chest pain. NO f/c/n/v. Non compliant with cpap machine at home Time Seen by Provider: 06/29/18 03:25 Chief Complaint (Nursing): Respiratory Distress History Per: EMS History/Exam Limitations: clinical condition Onset/Duration Of Symptoms: Hrs Current Symptoms Are (Timing): Still Present Initiating Event: Other Exacerbating Factor(s): Coughing Current Respiratory Medications: See Home Med List Severity: Severe Pain Scale Rating Of: 8 Associated Symptoms: denies: Fever, Chills, Chest Pain Reports Recently: Seen In ED, Treated By A Physician, Hospitalized Recent travel outside of the [place]: No Additional History Per: EMS Past Medical History Reviewed: Historical Data, Nursing Documentation, Vital Signs - Medical History PMH: Anxiety, Arthritis, Asthma, CAD, CHF, Colonic Polyps, COPD, Diabetes, HTN, Hypercholesterolemia Denies: Chronic Kidney Disease Surgical History: Pacemaker Family History: States: No Known Family Hx - Social History Hx Tobacco Use: No Hx Alcohol Use: No Hx Substance Use: No - Immunization History Hx Tetanus Toxoid Vaccination: No Hx Influenza Vaccination: No Hx Pneumococcal Vaccination: No Review Of Systems Constitutional: Negative for: Fever, Chills Eyes: Negative for: Redness ENT: Negative for: Throat Pain Cardiovascular: Negative for: Chest Pain Respiratory: Positive for: Shortness of Breath, SOB with Excertion, Wheezing Gastrointestinal: Negative for: Abdominal Pain Genitourinary: Negative for: Dysuria Musculoskeletal: Negative for: Back Pain Skin: Negative for: Rash Neurological: Negative for: Weakness Psych: Positive for: Anxiety Physical Exam - Physical Exam Appears: In Acute Distress Skin: Warm, Dry Head: Normacephalic Eye(s): bilateral: Normal Inspection Nose: Flaring Oral Mucosa: Moist Neck: Supple Chest: Symmetrical Cardiovascular: Rhythm Regular Respiratory: Decreased Breath Sounds, Rales, Rhonchi, Wheezing Gastrointestinal/Abdominal: Soft, No Tenderness, Distention, Other (obese) Back: Normal Inspection Extremity: Normal ROM, Pedal Edema (trace) Extremity: Bilateral: Atraumatic, Normal Color And Temperature Pulses: Left Dorsalis Pedis: Normal, Right Dorsalis Pedis: Normal Neurological/Psych: Oriented x3 Gait: Unable To Assess ED Course And Treatment - Laboratory Results Result Diagrams: 06/29/18 03:34 06/29/18 03:34 ECG: Interpreted By Me, Viewed By Me Pulse Ox Interpretation: Normal (100) - Radiology CXR: Interpreted by Me, Viewed By Me CXR Interpretation: Yes: Cardiomegaly, Other (pacer left, mild vasc congestion). No: Infiltrates, Fracture Critical Care Time - Critical Care Note Total Time (in mins): 30 Documented critical care: time excludes all time spent performing seperately billable procedures. Disposition Discussed With Dr.: Kenia Tucker Comment: accepted the pt on her service and took over the care at 5:40 AM Doctor Will See Patient In The: Hospital Counseled Patient/Family Regarding: Studies Performed, Diagnosis - Disposition Disposition: HOSPITALIZED Disposition Time: 03:25 Condition: FAIR Forms: [employer] Connect (Welsh) - POA Present On Arrival: Poor Glycemic Control - Clinical Impression Clinical Impression: CHF exacerbation, Chronic obstructive lung disease, Respiratory distress Decision To Admit - Pt Status Changed To: Hospital Disposition Of: Inpatient - Admit Certification Admit to Inpatient:: After my assessment, the patient will require hospitalization for at least two midnights. This is because of the severity of symptoms shown, intensity of services needed, and/or the medical risk in this patient being treated as an outpatient. - InPatient: Physician Admission Certification: I certify that this patient requires 2 or more midnights of care for the following reason:: After my assessment, the patient will require hospitalization for at least two midnights. This is because of the severity of symptoms shown, intensity of services needed, and/or the medical risk in this patient being treated as an outpatient. - . Bed Request Type: Telemetry Admitting Physician: Kenia Tucker Patient Diagnosis: CHF exacerbation, Chronic obstructive lung disease, Respiratory distress
[2018-06-29 03:27] VITALS: BMI 39.9
[2018-06-29] MEDS ORDERED: Aspirin 325 mg EC Tablets PO STA (03:27)
[2018-06-29 03:45] LABS: BASO # 0.2 K/uL (0.0-0.2); BASO % 1.1 % (0.0-2.0); EOS # 0.1 K/uL (0.0-0.7); HEMOGLOBIN 10.6 g/dL (11.0-16.0); LYMPH # 1.6 K/uL (1.0-4.3); LYMPH % 10.5 % (20.0-40.0); MEAN CELL VOLUME 76.6 fL (81.0-99.0); MEAN CORPUSCULAR HEMOGLOBIN 25.1 pg (27.0-31.0); MEAN CORPUSCULAR HGB CONC 32.7 g/dL (33.0-37.0); MEAN PLATELET VOLUME 9.5 fL (7.2-11.7); MONO # 0.8 K/uL (0.0-0.8); MONO % 5.2 % (0.0-10.0); NEUT # 12.1 K/uL (1.8-7.0); NEUT % 82.2 % (50.0-75.0); RBC 4.25 Mil/uL (3.80-5.20); RED CELL DISTRIBUTION WIDTH 17.9 % (11.5-14.5); WHITE BLOOD COUNT 14.8 K/uL (4.8-10.8)
[2018-06-29 03:46] LABS: INR 1.2; PROTHROMBIN TIME 13.4 SECONDS (9.7-12.2)
[2018-06-29 03:53] LABS: ALB/GLOB RATIO 1.4 (1.0-2.1); ALBUMIN 3.9 g/dL (3.5-5.0); ALT/SGPT 19 U/L (9-52); AST/SGOT 19 U/L (14-36); BLOOD UREA NITROGEN 14 mg/dL (7-17); CALCIUM 8.3 mg/dl (8.6-10.4); GFR NON-AFRICAN AMERICAN > 60
[2018-06-29] MEDS ORDERED: Piperacillin/Tazobact 3.375 gm 100 ML IVPB STA (03:58)
[2018-06-29] MEDS ORDERED: Aspirin 325 mg EC Tablets PO ONE (04:02)
[2018-06-29] MEDS ORDERED: Albuterol-Ipratrop 3 mg / 0.5 (3 ml) UD ONE ×3 (04:04→13:30)
[2018-06-29 04:05] LABS: B-TYPE NATRIURETIC PEPTIDE 2510 pg/mL (0-900)
[2018-06-29 04:15] LABS: ABG ALLEN TEST YES; ARTERIAL BLOOD GAS HCO3 28.8 mmol/L (21-28); ARTERIAL BLOOD GAS O2 SAT 100.1 % (95-98); ARTERIAL BLOOD GAS PCO2 35 mm/Hg (35-45); ARTERIAL BLOOD GAS PH 7.51 (7.35-7.45); ARTERIAL BLOOD GAS PO2 176 mm/Hg (80-100)
[2018-06-29] MEDS ORDERED: Piperacillin/Tazobact 3.375 gm 100 ML IVPB ONE (04:22)
[2018-06-29] MEDS ORDERED: Potassium Chloride 20 mEq 100 ML ONE ×2 (05:55→08:06)
[2018-06-29] MEDS ORDERED: Albuterol-Ipratrop 3 mg / 0.5 (3 ml) UD INH PRN ×2 (06:13→19:15)
[2018-06-29] MEDS ORDERED: Albuterol-Ipratrop 3 mg / 0.5 (3 ml) UD INH SCH (08:00)
[2018-06-29] MEDS: Albuterol-Ipratrop 3 mg / 0.5 (3 ml) UD INH SCH ×2 (08:49→13:27)
--- NOTE | 2018-06-29 09:08 | RAD ---
Date of service: 06/29/2018 HISTORY: SOB COMPARISON: Comparison made with chest radiograph 05/20/2018. FINDINGS: LUNGS: Mild pulmonary vascular congestive changes with bilateral lower lobe alveolar-type infiltrates and small bilateral effusions.. PLEURA: As above. No pneumothorax apparent. CARDIOVASCULAR: Aortic atherosclerotic calcification present. Cardiomegaly. No change single lead pacemaker/defibrillator.. OSSEOUS STRUCTURES: No significant abnormalities. VISUALIZED UPPER ABDOMEN: Normal. OTHER FINDINGS: None. IMPRESSION: Pulmonary vascular congestive changes with bilateral lower lobe alveolar-type infiltrates and small bilateral effusions.
[2018-06-29] MEDS ORDERED: (Novolin R) Insulin Human Regular 100 units/ml vial ONE ×2 (09:53→12:14)
[2018-06-29] MEDS: (Novolin R) Insulin Human Regular 100 units/ml vial SC SCH ×4 (10:00→21:48)
[2018-06-29] MEDS ORDERED: Home Med 1 UNIT (Sitagliptin Phos/Metformin Hcl [Janumet 50-1,000 Mg Tablet] 1 TAB) PO SCH (10:00)
[2018-06-29] MEDS: Saccharomyces Boulardi 250 mg Cap PO SCH (10:11)
[2018-06-29] MEDS: Omega-3-Acid Ethyl Esters 1 GM Cap PO SCH (10:11)
--- NOTE | 2018-06-29 11:46 | CARD ---
APPROVED REPORT Date of service: 06/29/2018 EKG Measurement Heart [id number] <Conclusion> Ventricular paced rhythm Underlying rhythm is A Fib Abnormal ECG
[2018-06-29 11:53] LABS: BASO % 0.2 % (0.0-2.0); HEMOGLOBIN 10.7 g/dL (11.0-16.0); LYMPH # 0.8 K/uL (1.0-4.3); LYMPH % 8.4 % (20.0-40.0); MEAN CELL VOLUME 76.7 fL (81.0-99.0); MEAN CORPUSCULAR HEMOGLOBIN 25.4 pg (27.0-31.0); MEAN CORPUSCULAR HGB CONC 33.1 g/dL (33.0-37.0); MEAN PLATELET VOLUME 9.5 fL (7.2-11.7); MONO # 0.1 K/uL (0.0-0.8); MONO % 1.1 % (0.0-10.0); NEUT % 90.3 % (50.0-75.0); PLATELET COUNT 205 K/uL (130-400); RBC 4.22 Mil/uL (3.80-5.20); RED CELL DISTRIBUTION WIDTH 17.4 % (11.5-14.5)
[2018-06-29 12:12] LABS: ALB/GLOB RATIO 1.2 (1.0-2.1); ALBUMIN 3.6 g/dL (3.5-5.0); ALT/SGPT 12 U/L (9-52); AST/SGOT 19 U/L (14-36); BLOOD UREA NITROGEN 15 mg/dL (7-17); CALCIUM 7.7 mg/dl (8.6-10.4); GFR NON-AFRICAN AMERICAN > 60
[2018-06-29 12:18] LABS: SQUAMOUS EPITHIAL 2 /hpf (0-5); URINE BACTERIA FEW (<OCC); URINE BILIRUBIN NEGATIVE (NEGATIVE); URINE BLOOD NEGATIVE (NEGATIVE); URINE CLARITY Hazy (Clear); URINE COLOR Yellow (YELLOW); URINE GLUCOSE (UA) NORMAL (Normal); URINE LEUKOCYTE ESTERASE NEG Leu/uL (Negative); URINE PROTEIN NEGATIVE (NEGATIVE); URINE UROBILINOGEN NORMAL mg/dL (0.2-1.0)
[2018-06-29 12:21] LABS: ANISOCYTOSIS SLIGHT; HYPOCHROMIC SLIGHT; LYMPHOCYTE 6 % (20-40); MONOCYTE 2 % (0-10); NEUTROPHIL 92 % (50-75); PLATELET ESTIMATE NORMAL (NORMAL); POIKILOCYTOSIS SLIGHT; TOTAL CELLS COUNTED 100
[2018-06-29 12:24] LABS: TARGET CELLS SLIGHT
--- NOTE | 2018-06-29 16:11 | CP.PCM.HP ---
History of Present Illness - History of Present Illness History of Present Illness: cc: sob PT is a 73 year old female with recent hospitalization due to sob. pt is here today with similar issues. PHx: Nontoxic multinodular goiter Calculus of kidneys Back pain Atrial FIB pacemaker and ablation Asthma Diabetes type 2 HTN Hypercholesterolemia Anemia Sleep apnea Major depressive disorder Polyosteoarthritis Family Hx: Mother- diabetes Social Hx: Former smoker Neg. ETOH Neg. Drugs Allergies: NONE Medications: Potassium 20 qd Percocet 7.5-325 TID PRN Januvia 100 qd Novolog flexpen Levemir flexpen Bydureon Vitamin d3 Meclizine 25 q8h Pradaxa 150 BID Ventolin Singulair 10 mg Symbicort Diltiazem 360 qd Past Patient History - Infectious Disease Hx of Infectious Diseases: None - Past Medical History & Family History Past Medical History?: Yes - Past Social History Smoking Status: Never Smoked - CARDIAC Hx Congestive Heart Failure: Yes Hx Hypercholesterolemia: Yes Hx Hypertension: Yes Hx Pacemaker: Yes - PULMONARY Hx Asthma: Yes Hx Chronic Obstructive Pulmonary Disease (COPD): Yes - NEUROLOGICAL Hx Neurological Disorder: Yes Hx Vertigo: Yes Other/Comment: SCIATICA RIGHT SIDE - HEENT Hx HEENT Problems: Yes Other/Comment: HX: THYROID NODULE - RENAL Hx Chronic Kidney Disease: No - ENDOCRINE/METABOLIC Hx Endocrine Disorders: Yes Hx Diabetes Mellitus Type 1: Yes Hx Diabetes Mellitus Type 2: Yes - HEMATOLOGICAL/ONCOLOGICAL Hx Blood Disorders: No - INTEGUMENTARY Hx Dermatological Problems: No - MUSCULOSKELETAL/RHEUMATOLOGICAL Hx Arthritis: Yes - GASTROINTESTINAL Hx Gastrointestinal Disorders: Yes Hx Hemorrhoids: Yes - GENITOURINARY/GYNECOLOGICAL Hx Genitourinary Disorders: No - PSYCHIATRIC Hx Anxiety: Yes Hx Substance Use: No - SURGICAL HISTORY Hx Surgeries: Yes Hx Section: Yes (X1) Other/Comment: HX: COLON POLYPECTOMY, THRYROID BIOPSY - ANESTHESIA Hx Anesthesia: Yes Hx Anesthesia Reactions: No Hx Malignant Hyperthermia: No Meds Allergies/Adverse Reactions: Allergies Allergy/AdvReac Type Severity Reaction Status Date / Time No Known Allergies Allergy Verified 05/16/18 09:31 Results - Vital Signs Recent Vital Signs: Last Vital Signs Temp 98.5 F 06/29/18 06:48 Pulse 70 06/29/18 15:23 Resp 20 06/29/18 15:23 BP 107/53 L 06/29/18 15:23 Pulse Ox 99 06/29/18 15:23 - Labs Result Diagrams: 06/29/18 11:47 06/29/18 11:47 Labs: Laboratory Results - last 24 hr 06/29/18 06/29/18 06/29/18 03:34 03:34 03:34 WBC 14.8 H D RBC 4.25 Hgb 10.6 L Hct 32.5 L MCV 76.6 L MCH 25.1 L MCHC 32.7 L RDW 17.9 H Plt Count 224 MPV 9.5 Neut % (Auto) 82.2 H Lymph % (Auto) 10.5 L Butts % (Auto) 5.2 Eos % (Auto) 1.0 Baso % (Auto) 1.1 Neut # (Auto) 12.1 H Lymph # (Auto) 1.6 Butts # (Auto) 0.8 Eos # (Auto) 0.1 Baso # (Auto) 0.2 Neutrophils % (Manual) Lymphocytes % (Manual) Monocytes % (Manual) Platelet Estimate Hypochromasia (manual) Poikilocytosis (manual Anisocytosis (manual) Target Cells PT 13.4 H INR 1.2 APTT 35 H Puncture Site pCO2 pO2 HCO3 ABG pH ABG Total CO2 ABG O2 Saturation ABG Base Excess Alex Test ABG Potassium A-a O2 Difference Respiratory Index Glucose Lactate FiO2 Crit Value Called To Crit Value Called By Crit Value Read Back Blood Gas Notified Time Sodium 140 Potassium 2.7 L Chloride 102 Carbon Dioxide 26 Anion Gap 14 BUN 14 Creatinine 0.8 Est GFR ( Amer) > 60 Est GFR (Non-Af Amer) > 60 POC Glucose (mg/dL) Random Glucose 139 H Calcium 8.3 L Phosphorus Magnesium 1.6 Total Bilirubin 0.5 AST 19 ALT 19 Alkaline Phosphatase 66 Troponin I 0.0290 NT-Pro-B Natriuret Pep 2510 H Total Protein 6.8 Albumin 3.9 Globulin 2.9 Albumin/Globulin Ratio 1.4 Arterial Blood Potassium Urine Color Urine Clarity Urine pH Ur Specific Drewsey Urine Protein Urine Glucose (UA) Urine Ketones Urine Blood Urine Nitrate Urine Bilirubin Urine Urobilinogen Ur Leukocyte Esterase Urine WBC (Auto) Urine RBC (Auto) Ur Squamous Epith Cells Urine Bacteria 06/29/18 06/29/18 06/29/18 04:00 08:09 11:47 WBC 10.0 RBC 4.22 Hgb 10.7 L Hct 32.4 L MCV 76.7 L MCH 25.4 L MCHC 33.1 RDW 17.4 H Plt Count 205 MPV 9.5 Neut % (Auto) 90.3 H Lymph % (Auto) 8.4 L Butts % (Auto) 1.1 Eos % (Auto) 0.0 Baso % (Auto) 0.2 Neut # (Auto) 9.0 H Lymph # (Auto) 0.8 L Butts # (Auto) 0.1 Eos # (Auto) 0.0 Baso # (Auto) 0.0 Neutrophils % (Manual) 92 H Lymphocytes % (Manual) 6 L Monocytes % (Manual) 2 Platelet Estimate Normal Hypochromasia (manual) Slight Poikilocytosis (manual Slight Anisocytosis (manual) Slight Target Cells Slight PT INR APTT Puncture Site Rr pCO2 35 pO2 176 H HCO3 28.8 H ABG pH 7.51 H ABG Total CO2 29.0 H ABG O2 Saturation 100.1 H ABG Base Excess 4.9 H Alex Test Yes ABG Potassium 2.5 L* A-a O2 Difference 65.0 Respiratory Index 0.4 Glucose 113 H Lactate 0.8 FiO2 40.0 Crit Value Called To Dee eugene Crit Value Called By Juanita rt Crit Value Read Back Y Blood Gas Notified Time 414 Sodium 142.0 Potassium Chloride 109.0 H Carbon Dioxide Anion Gap BUN Creatinine Est GFR ( Amer) Est GFR (Non-Af Amer) POC Glucose (mg/dL) 182 H Random Glucose Calcium Phosphorus Magnesium Total Bilirubin AST ALT Alkaline Phosphatase Troponin I NT-Pro-B Natriuret Pep Total Protein Albumin Globulin Albumin/Globulin Ratio Arterial Blood Potassium 2.5 L* Urine Color Urine Clarity Urine pH Ur Specific Drewsey Urine Protein Urine Glucose (UA) Urine Ketones Urine Blood Urine Nitrate Urine Bilirubin Urine Urobilinogen Ur Leukocyte Esterase Urine WBC (Auto) Urine RBC (Auto) Ur Squamous Epith Cells Urine Bacteria 06/29/18 06/29/18 06/29/18 11:47 11:58 12:02 WBC RBC Hgb Hct MCV MCH MCHC RDW Plt Count MPV Neut % (Auto) Lymph % (Auto) Butts % (Auto) Eos % (Auto) Baso % (Auto) Neut # (Auto) Lymph # (Auto) Butts # (Auto) Eos # (Auto) Baso # (Auto) Neutrophils % (Manual) Lymphocytes % (Manual) Monocytes % (Manual) Platelet Estimate Hypochromasia (manual) Poikilocytosis (manual Anisocytosis (manual) Target Cells PT INR APTT Puncture Site pCO2 pO2 HCO3 ABG pH ABG Total CO2 ABG O2 Saturation ABG Base Excess Alex Test ABG Potassium A-a O2 Difference Respiratory Index Glucose Lactate FiO2 Crit Value Called To Crit Value Called By Crit Value Read Back Blood Gas Notified Time Sodium 139 Potassium 3.7 Chloride 102 Carbon Dioxide 26 Anion Gap 15 BUN 15 Creatinine 0.8 Est GFR ( Amer) > 60 Est GFR (Non-Af Amer) > 60 POC Glucose (mg/dL) 295 H Random Glucose 291 H Calcium 7.7 L Phosphorus 3.7 Magnesium 1.5 L Total Bilirubin 0.5 AST 19 ALT 12 Alkaline Phosphatase 71 Troponin I NT-Pro-B Natriuret Pep Total Protein 6.6 Albumin 3.6 Globulin 3.0 Albumin/Globulin Ratio 1.2 Arterial Blood Potassium Urine Color Yellow Urine Clarity Hazy Urine pH 5.0 Ur Specific Drewsey 1.011 Urine Protein Negative Urine Glucose (UA) Normal Urine Ketones Negative Urine Blood Negative Urine Nitrate Negative Urine Bilirubin Negative Urine Urobilinogen Normal Ur Leukocyte Esterase Neg Urine WBC (Auto) 1 Urine RBC (Auto) < 1 Ur Squamous Epith Cells 2 Urine Bacteria Few H
[2018-06-29] MEDS: MethylPREDNISolone 40 mg Vial IVP SCH (16:12)
[2018-06-29] MEDS: Insulin Detemir 100 units/ml Vial (Levemir) SC SCH (21:47)
[2018-06-29] MEDS: Oxycodone/Acetaminophen 5/325 mg Tab PO PRN (21:51)
[2018-06-30] MEDS: Albuterol-Ipratrop 3 mg / 0.5 (3 ml) UD INH SCH ×4 (03:51→21:02)
[2018-06-30] MEDS: (Novolin R) Insulin Human Regular 100 units/ml vial SC SCH ×4 (08:30→21:46)
--- NOTE | 2018-06-30 09:24 | CP.PCM.PN ---
Subjective - Date & Time of Evaluation Date of Evaluation: 06/30/18 - Subjective Subjective: PT states she feels better less sob co hemorrhoids and leg cramps Objective - Vital Signs/Intake and Output Vital Signs (last 24 hours): Temp Pulse Resp BP Pulse Ox 97.3 F L 70 18 150/79 98 06/30/18 07:00 06/30/18 07:00 06/30/18 07:00 06/30/18 07:00 06/30/18 07:00 - Medications Medications: Current Medications Albuterol/Ipratropium (Duoneb 3 Mg/0.5 Mg (3 Ml) Ud) 3 ml INH RQ6 [facility] Last Admin: 06/30/18 07:50 Dose: 3 ml Albuterol/Ipratropium (Duoneb 3 Mg/0.5 Mg (3 Ml) Ud) 3 ml INH Q2H PRN PRN Reason: Shortness of Breath Last Admin: 06/30/18 00:08 Dose: 3 ml Alprazolam (Xanax) 0.25 mg PO BID PRN PRN Reason: Anxiety Stop: 07/06/18 06:23 Aspirin (Ecotrin) 81 mg PO DAILY [facility] Last Admin: 06/29/18 10:11 Dose: 81 mg Carvedilol (Coreg) 25 mg PO BID [facility] Last Admin: 06/29/18 18:20 Dose: 25 mg Dabigatran (Pradaxa) 150 mg PO BID [facility] Last Admin: 06/29/18 18:20 Dose: 150 mg Diltiazem HCl (Cardizem) 120 mg PO DAILY [facility] Last Admin: 06/29/18 10:10 Dose: 120 mg Furosemide (Lasix) 40 mg IVP DAILY [facility] Last Admin: 06/29/18 10:11 Dose: 40 mg Ceftriaxone Sodium 1 gm/ (Sodium Chloride) 100 mls @ 100 mls/hr IVPB Q24H [facility]; Protocol Last Admin: 06/29/18 12:05 Dose: 100 mls/hr Insulin Aspart (Novolog) 8 unit SC TID [facility] Insulin Detemir (Levemir) 20 unit SC HS [facility] Last Admin: 06/29/18 21:47 Dose: 20 units Insulin Human Regular (Novolin R) 0 unit SC ACHS [facility]; Protocol Last Admin: 06/30/18 08:30 Dose: 5 unit Meclizine HCl (Antivert) 25 mg PO Q8 PRN PRN Reason: Dizziness Metformin HCl (Glucophage) 1,000 mg PO BID [facility] Last Admin: 06/29/18 18:20 Dose: 1,000 mg Methylprednisolone (Solu-Medrol) 40 mg IVP Q24H [facility] Stop: 06/30/18 17:00 Last Admin: 06/29/18 16:12 Dose: 40 mg Montelukast Sodium (Singulair) 10 mg PO DAILY [facility] Last Admin: 06/29/18 10:11 Dose: 10 mg [id number] Ethyl Esters (Lovaza) 1 gm PO DAILY [facility] Last Admin: 06/29/18 10:11 Dose: 1 gm Oxycodone/Acetaminophen (Percocet 5/325 Mg Tab) 1 tab PO Q8H PRN PRN Reason: Pain, moderate (4-7) Stop: 07/02/18 06:23 Last Admin: 06/29/18 21:51 Dose: 1 tab Pantoprazole Sodium (Protonix Inj) 40 mg IVP DAILY [facility] Last Admin: 06/29/18 10:11 Dose: 40 mg Rosuvastatin Calcium (Crestor) 20 mg PO HS [facility] Last Admin: 06/29/18 21:48 Dose: 20 mg Saccharomyces Boulardii (Florastor) 250 mg PO DAILY [facility] Last Admin: 06/29/18 10:11 Dose: 250 mg Sitagliptin Phosphate (Januvia) 50 mg PO BID [facility] Last Admin: 06/29/18 18:20 Dose: 50 mg - Labs Labs: 06/29/18 11:47 06/29/18 11:47 PT 13.4 SECONDS (9.7-12.2) H 06/29/18 03:34 INR 1.2 06/29/18 03:34 APTT 35 SECONDS (21-34) H 06/29/18 03:34
[2018-06-30] MEDS: Omega-3-Acid Ethyl Esters 1 GM Cap PO SCH (10:05)
[2018-06-30] MEDS: Saccharomyces Boulardi 250 mg Cap PO SCH (10:05)
[2018-06-30] MEDS: (Novolog) Insulin Aspart, Recombinant 100 u/ml 10 ml vial SC SCH ×3 (10:19→17:50)
[2018-06-30] MEDS: Hydrocortisone 2.5% Rectal Cream(30 gm) PR SCH ×2 (10:19→17:54)
[2018-06-30 10:50] LABS: BLOOD UREA NITROGEN 32 mg/dL (7-17); CALCIUM 8.2 mg/dl (8.6-10.4); GFR NON-AFRICAN AMERICAN 55
--- NOTE | 2018-06-30 17:13 | CARD ---
APPROVED REPORT Date of service: 06/29/2018 EKG Measurement Heart [id number] <Conclusion> Ventricular-paced rhythm Abnormal ECG
[2018-06-30] MEDS: MethylPREDNISolone 40 mg Vial IVP SCH (17:48)
--- NOTE | 2018-06-30 17:58 | CP.PCM.CON ---
Past Patient History - Infectious Disease Hx of Infectious Diseases: None - Past Medical History & Family History Past Medical History?: Yes - Past Social History Smoking Status: Former Smoker - CARDIAC Hx Congestive Heart Failure: Yes Hx Hypercholesterolemia: Yes Hx Hypertension: Yes Hx Pacemaker: Yes - PULMONARY Hx Asthma: Yes Hx Chronic Obstructive Pulmonary Disease (COPD): Yes - NEUROLOGICAL Hx Neurological Disorder: Yes Hx Vertigo: Yes Other/Comment: SCIATICA RIGHT SIDE - HEENT Hx HEENT Problems: Yes Other/Comment: HX: THYROID NODULE - RENAL Hx Chronic Kidney Disease: No - ENDOCRINE/METABOLIC Hx Endocrine Disorders: Yes Hx Diabetes Mellitus Type 1: Yes Hx Diabetes Mellitus Type 2: Yes - HEMATOLOGICAL/ONCOLOGICAL Hx Blood Disorders: No - INTEGUMENTARY Hx Dermatological Problems: No - MUSCULOSKELETAL/RHEUMATOLOGICAL Hx Arthritis: Yes Hx Falls: No - GASTROINTESTINAL Hx Gastrointestinal Disorders: Yes Hx Hemorrhoids: Yes - GENITOURINARY/GYNECOLOGICAL Hx Genitourinary Disorders: No - PSYCHIATRIC Hx Substance Use: No - SURGICAL HISTORY Hx Surgeries: Yes Hx Section: Yes (X1) Other/Comment: HX: COLON POLYPECTOMY, THRYROID BIOPSY - ANESTHESIA Hx Anesthesia: Yes Hx Anesthesia Reactions: No Hx Malignant Hyperthermia: No Has any member of the family had a problem w/ anesthesia?: No Meds Allergies/Adverse Reactions: Allergies Allergy/AdvReac Type Severity Reaction Status Date / Time No Known Allergies Allergy Verified 05/16/18 09:31 - Medications Medications: Current Medications Albuterol/Ipratropium (Duoneb 3 Mg/0.5 Mg (3 Ml) Ud) 3 ml INH RQ6 [facility] Last Admin: 06/30/18 13:18 Dose: 3 ml Albuterol/Ipratropium (Duoneb 3 Mg/0.5 Mg (3 Ml) Ud) 3 ml INH Q2H PRN PRN Reason: Shortness of Breath Last Admin: 06/30/18 00:08 Dose: 3 ml Alprazolam (Xanax) 0.25 mg PO BID PRN PRN Reason: Anxiety Stop: 07/06/18 06:23 Aspirin (Ecotrin) 81 mg PO DAILY [facility] Last Admin: 06/30/18 10:05 Dose: 81 mg Carvedilol (Coreg) 25 mg PO BID [facility] Last Admin: 06/30/18 17:47 Dose: 25 mg Dabigatran (Pradaxa) 150 mg PO BID [facility] Last Admin: 06/30/18 17:47 Dose: 150 mg Diltiazem HCl (Cardizem) 120 mg PO DAILY [facility] Last Admin: 06/30/18 10:06 Dose: 120 mg Furosemide (Lasix) 40 mg IVP DAILY [facility] Last Admin: 06/30/18 10:06 Dose: 40 mg Hydrocortisone (Anusol-Hc) 1 gm PA BID [facility] Last Admin: 06/30/18 10:19 Dose: 2.5 % Ceftriaxone Sodium 1 gm/ (Sodium Chloride) 100 mls @ 100 mls/hr IVPB Q24H [facility]; Protocol Last Admin: 06/30/18 13:00 Dose: 100 mls/hr Insulin Aspart (Novolog) 8 unit SC TID [facility] Last Admin: 06/30/18 17:50 Dose: 8 units Insulin Detemir (Levemir) 20 unit SC HS [facility] Last Admin: 06/29/18 21:47 Dose: 20 units Insulin Human Regular (Novolin R) 0 unit SC ACHS [facility]; Protocol Last Admin: 06/30/18 17:49 Dose: 5 unit Meclizine HCl (Antivert) 25 mg PO Q8 PRN PRN Reason: Dizziness Metformin HCl (Glucophage) 1,000 mg PO BID [facility] Last Admin: 06/30/18 17:47 Dose: 1,000 mg Montelukast Sodium (Singulair) 10 mg PO DAILY [facility] Last Admin: 06/30/18 10:05 Dose: 10 mg [id number] Ethyl Esters (Lovaza) 1 gm PO DAILY [facility] Last Admin: 06/30/18 10:05 Dose: 1 gm Oxycodone/Acetaminophen (Percocet 5/325 Mg Tab) 1 tab PO Q8H PRN PRN Reason: Pain, moderate (4-7) Stop: 07/02/18 06:23 Last Admin: 06/29/18 21:51 Dose: 1 tab Pantoprazole Sodium (Protonix Inj) 40 mg IVP DAILY [facility] Last Admin: 06/30/18 10:04 Dose: 40 mg Rosuvastatin Calcium (Crestor) 20 mg PO HS [facility] Last Admin: 06/29/18 21:48 Dose: 20 mg Saccharomyces Boulardii (Florastor) 250 mg PO DAILY [facility] Last Admin: 06/30/18 10:05 Dose: 250 mg Sitagliptin Phosphate (Januvia) 50 mg PO BID [facility] Last Admin: 06/30/18 17:47 Dose: 50 mg Results - Vital Signs Recent Vital Signs: Last Vital Signs Temp 97.8 F 06/30/18 15:00 Pulse 74 06/30/18 16:00 Resp 18 06/30/18 15:00 BP 139/72 06/30/18 17:47 Pulse Ox 98 06/30/18 15:00 - Labs Result Diagrams: 06/29/18 11:47 06/30/18 10:32 Labs: Laboratory Results - last 24 hr 06/29/18 06/30/18 06/30/18 21:29 01:49 06:25 Sodium Potassium Chloride Carbon Dioxide Anion Gap BUN Creatinine Est GFR ( Amer) Est GFR (Non-Af Amer) POC Glucose (mg/dL) 401 H* 359 H 355 H Random Glucose Calcium Magnesium 06/30/18 06/30/18 06/30/18 10:32 11:03 16:27 Sodium 136 Potassium 4.4 Chloride 99 Carbon Dioxide 23 Anion Gap 17 BUN 32 H Creatinine 1.0 Est GFR ( Amer) > 60 Est GFR (Non-Af Amer) 55 POC Glucose (mg/dL) 391 H 377 H Random Glucose 392 H Calcium 8.2 L Magnesium 1.7
[2018-06-30] MEDS: Oxycodone/Acetaminophen 5/325 mg Tab PO PRN (21:45)
[2018-06-30] MEDS: Insulin Detemir 100 units/ml Vial (Levemir) SC SCH (21:46)
[2018-07-01] MEDS: Albuterol-Ipratrop 3 mg / 0.5 (3 ml) UD INH SCH ×2 (01:32→07:42)
[2018-07-01 03:22] VITALS: PULSE 70
[2018-07-01 07:59] VITALS: RESP 18; TEMP 97.3; O2SAT 98
[2018-07-01] MEDS: (Novolin R) Insulin Human Regular 100 units/ml vial SC SCH (08:42)
--- NOTE | 2018-07-01 09:26 | CP.PCM.DIS ---
Provider - Provider Date of Admission: 06/29/18 05:40 Attending physician: Kenia Tucker MD Hospital Course - Lab Results Lab Results: Micro Results 06/29/18 07:53 Blood Blood Culture - Preliminary NO GROWTH AFTER 48 HOURS 06/29/18 07:53 Blood Blood Culture - Preliminary NO GROWTH AFTER 48 HOURS Most Recent Lab Values WBC 10.0 K/uL (4.8-10.8) 06/29/18 11:47 RBC 4.22 Mil/uL (3.80-5.20) 06/29/18 11:47 Hgb 10.7 g/dL (11.0-16.0) L 06/29/18 11:47 Hct 32.4 % (34.0-47.0) L 06/29/18 11:47 MCV 76.7 fL (81.0-99.0) L 06/29/18 11:47 MCH 25.4 pg (27.0-31.0) L 06/29/18 11:47 MCHC 33.1 g/dL (33.0-37.0) 06/29/18 11:47 RDW 17.4 % (11.5-14.5) H 06/29/18 11:47 Plt Count 205 K/uL (130-400) 06/29/18 11:47 MPV 9.5 fL (7.2-11.7) 06/29/18 11:47 Neut % (Auto) 90.3 % (50.0-75.0) H 06/29/18 11:47 Lymph % (Auto) 8.4 % (20.0-40.0) L 06/29/18 11:47 [place] % (Auto) 1.1 % (0.0-10.0) 06/29/18 11:47 Eos % (Auto) 0.0 % (0.0-4.0) 06/29/18 11:47 Baso % (Auto) 0.2 % (0.0-2.0) 06/29/18 11:47 Neut # (Auto) 9.0 K/uL (1.8-7.0) H 06/29/18 11:47 Lymph # (Auto) 0.8 K/uL (1.0-4.3) L 06/29/18 11:47 [place] # (Auto) 0.1 K/uL (0.0-0.8) 06/29/18 11:47 Eos # (Auto) 0.0 K/uL (0.0-0.7) 06/29/18 11:47 Baso # (Auto) 0.0 K/uL (0.0-0.2) 06/29/18 11:47 Neutrophils % (Manual) 92 % (50-75) H 06/29/18 11:47 Lymphocytes % (Manual) 6 % (20-40) L 06/29/18 11:47 Monocytes % (Manual) 2 % (0-10) 06/29/18 11:47 Platelet Estimate Normal (NORMAL) 06/29/18 11:47 Hypochromasia (manual) Slight 06/29/18 11:47 Poikilocytosis (manual Slight 06/29/18 11:47 Anisocytosis (manual) Slight 06/29/18 11:47 Target Cells Slight 06/29/18 11:47 PT 13.4 SECONDS (9.7-12.2) H 06/29/18 03:34 INR 1.2 06/29/18 03:34 APTT 35 SECONDS (21-34) H 06/29/18 03:34 Puncture Site Rr 06/29/18 04:00 pCO2 35 mm/Hg (35-45) 06/29/18 04:00 pO2 176 mm/Hg (80-100) H 06/29/18 04:00 HCO3 28.8 mmol/L (21-28) H 06/29/18 04:00 ABG pH 7.51 (7.35-7.45) H 06/29/18 04:00 ABG Total CO2 29.0 mmol/L (22-28) H 06/29/18 04:00 ABG O2 Saturation 100.1 % (95-98) H 06/29/18 04:00 ABG Base Excess 4.9 mmol/L (-2.0-3.0) H 06/29/18 04:00 Alex Test Yes 06/29/18 04:00 ABG Potassium 2.5 mmol/L (3.6-5.2) L* 06/29/18 04:00 A-a O2 Difference 65.0 mm/Hg 06/29/18 04:00 Respiratory Index 0.4 06/29/18 04:00 Sodium 142.0 mmol/l (132-148) 06/29/18 04:00 Chloride 109.0 mmol/L (98-107) H 06/29/18 04:00 Glucose 113 mg/dl (65-105) H 06/29/18 04:00 Lactate 0.8 mmol/L (0.7-2.1) 06/29/18 04:00 FiO2 40.0 % 06/29/18 04:00 Crit Value Called To Dee eugene 06/29/18 04:00 Crit Value Called By Juanita rodrigues 06/29/18 04:00 Crit Value Read Back Y 06/29/18 04:00 Blood Gas Notified Time 414 06/29/18 04:00 Sodium 136 mmol/L (132-148) 06/30/18 10:32 Potassium 4.4 mmol/L (3.6-5.2) 06/30/18 10:32 Chloride 99 mmol/L (98-107) 06/30/18 10:32 Carbon Dioxide 23 mmol/L (22-30) 06/30/18 10:32 Anion Gap 17 (10-20) 06/30/18 10:32 BUN 32 mg/dL (7-17) H 06/30/18 10:32 Creatinine 1.0 mg/dL (0.7-1.2) 06/30/18 10:32 Est GFR ( Amer) > 60 06/30/18 10:32 Est GFR (Non-Af Amer) 55 06/30/18 10:32 POC Glucose (mg/dL) 307 mg/dL (65-110) H 07/01/18 06:09 Random Glucose 392 mg/dL (65-105) H 06/30/18 10:32 Calcium 8.2 mg/dl (8.6-10.4) L 06/30/18 10:32 Phosphorus 3.7 mg/dL (2.5-4.5) 06/29/18 11:47 Magnesium 1.7 mg/dL (1.6-2.3) 06/30/18 10:32 Total Bilirubin 0.5 mg/dL (0.2-1.3) 06/29/18 11:47 AST 19 U/L (14-36) 06/29/18 11:47 ALT 12 U/L (9-52) 06/29/18 11:47 Alkaline Phosphatase 71 U/L (38-126) 06/29/18 11:47 Troponin I 0.0290 ng/mL (0.00-0.120) 06/29/18 03:34 NT-Pro-B Natriuret Pep 2510 pg/mL (0-900) H 06/29/18 03:34 Total Protein 6.6 g/dL (6.3-8.3) 06/29/18 11:47 Albumin 3.6 g/dL (3.5-5.0) 06/29/18 11:47 Globulin 3.0 gm/dL (2.2-3.9) 06/29/18 11:47 Albumin/Globulin Ratio 1.2 (1.0-2.1) 06/29/18 11:47 Arterial Blood Potassium 2.5 mmol/L (3.6-5.2) L* 06/29/18 04:00 Urine Color Yellow (YELLOW) 06/29/18 11:58 Urine Clarity Hazy (Clear) 06/29/18 11:58 Urine pH 5.0 (5.0-8.0) 06/29/18 11:58 Ur Specific [place] 1.011 (1.003-1.030) 06/29/18 11:58 Urine Protein Negative mg/dL (NEGATIVE) 06/29/18 11:58 Urine Glucose (UA) Normal mg/dL (Normal) 06/29/18 11:58 Urine Ketones Negative mg/dL (NEGATIVE) 06/29/18 11:58 Urine Blood Negative (NEGATIVE) 06/29/18 11:58 Urine Nitrate Negative (NEGATIVE) 06/29/18 11:58 Urine Bilirubin Negative (NEGATIVE) 06/29/18 11:58 Urine Urobilinogen Normal mg/dL (0.2-1.0) 06/29/18 11:58 Ur Leukocyte Esterase Neg [place]/uL (Negative) 06/29/18 11:58 Urine WBC (Auto) 1 /hpf (0-5) 06/29/18 11:58 Urine RBC (Auto) < 1 /hpf (0-3) 06/29/18 11:58 Ur Squamous Epith Cells 2 /hpf (0-5) 06/29/18 11:58 Urine Bacteria Few (<OCC) H 06/29/18 11:58 - Hospital Course Hospital Course: PT admtited with sob asthma exacerbation treated with nebs, abx and steroids with good response she had low k on admission and it was replased she was taking lasix and metolazone metolazone was discontinued Discharge Plan - Follow Up Plan Condition: FAIR Disposition: HOME/ ROUTINE
[2018-07-01] MEDS: (Novolog) Insulin Aspart, Recombinant 100 u/ml 10 ml vial SC SCH (10:29)
[2018-07-01] MEDS: Omega-3-Acid Ethyl Esters 1 GM Cap PO SCH (10:31)
[2018-07-01 10:32] VITALS: BP 115/62
[2018-07-01] MEDS: Saccharomyces Boulardi 250 mg Cap PO SCH (10:32)
[2018-07-01] MEDS: Hydrocortisone 2.5% Rectal Cream(30 gm) PR SCH (10:40)
== END 2018-07-01 11:34 | disposition home or self-care (01) | DRG 203 ==
LOC: C.ER 03:23 → C.9E 05:40 → C.5S 15:39
PROVIDERS: ADMIT Internal Medicine; ATTEND Internal Medicine
DX: J45.901 Unspecified asthma with (acute) exacerbation (principal); G47.30 Sleep apnea, unspecified; I25.10 Atherosclerotic heart disease of native coronary artery without angina pectoris; I11.0 Hypertensive heart disease with heart failure; I48.91 Unspecified atrial fibrillation; I50.9 Heart failure, unspecified; Z79.4 Long term (current) use of insulin; Z87.891 Personal history of nicotine dependence; Z95.0 Presence of cardiac pacemaker; F32.9 Major depressive disorder, single episode, unspecified; D64.9 Anemia, unspecified; E11.9 Type 2 diabetes mellitus without complications

== ENCOUNTER 2018-08-31 13:22 | Inpatient (IN) | payer MEDICARE, MEDICAID ==
[2018-08-31 13:22] VITALS: BMI 39.9
--- NOTE | 2018-08-31 13:55 | C.PDOC ---
History Of Present Illness Patient is a 73 year old female who is transported to the ED with c/o new onset bilateral leg pain and swelling for the past 5 days. She notes increased dyspnea on exertion for the past 5 days and states that she had bilateral lower leg redness that was worse 5 days ago, but has presently improved. Patient states that "everything hurts" and says that her pain is worse with movement. She states that she is compliant with her Lasix 80mg QD. Patient denies any recent falls, CP, knee/joint arthritis, fever, nausea, or vomiting. Patient is a poor historian. POOR HISTORIAN VIA TRANS CO NEW ONSET B/L LEG PAIN, SWELLING X 5 DAYS. "EVERYTHING HURTS" PS USES WALKER FOR CHRONIC VERTIGO. DENIES RECENT FALL. PAIN WORSE W MOVEMENT. COMPLIANT W LASIX 80 MG DAILY. +INC AVERY X 5 DAYS, DENIES CP. DENIES HO PREV KNEE/JOINT ARTHRITIS. PS HAD B/L LOWER LEG REDNESS WORSE 5 DAYS AGO BUT NOW IMPROVED. NO FEVER, CHILLS, NV ROS LIMITED EXAM NONTOXIC LUNGS CTA B/L NO W/R/R SPEAKING FULL SENTENCES CV RRR ABD OBESE EXT B/L 1+EDEMA LIMITED ROM B/L HIPS, KNEES, ANKLES BUT +PROM SKIN MIN ERYTHEMA R LOWER LEG, INTACT NEURO NO FOCAL DEF REMAINDER NEG Time Seen by Provider: 08/31/18 13:41 History Per: Patient, EMS History/Exam Limitations: no limitations Onset/Duration Of Symptoms: Days (5) Recent travel outside of the [place]: No Additional History Per: Patient, EMS Past Medical History Reviewed: Historical Data, Nursing Documentation, Vital Signs Vital Signs: Last Vital Signs Temp 98.4 F 08/31/18 13:31 Pulse 70 08/31/18 13:31 Resp 18 08/31/18 13:31 BP 148/69 08/31/18 13:31 Pulse Ox 98 08/31/18 13:31 - Medical History PMH: Anxiety, Arthritis, Asthma, CAD, CHF, Colonic Polyps, COPD, Diabetes, HTN, Hypercholesterolemia Denies: Chronic Kidney Disease Surgical History: Pacemaker Family History: States: Unknown Family Hx - Social History Hx Tobacco Use: No Hx Alcohol Use: No Hx Substance Use: No - Immunization History Hx Tetanus Toxoid Vaccination: No Hx Influenza Vaccination: No Hx Pneumococcal Vaccination: No Review Of Systems Review Of Systems: ROS cannot be obtained secondary to pt's inabilty to answer questions. Constitutional: Negative for: Fever Cardiovascular: Negative for: Chest Pain Respiratory: Positive for: SOB with Excertion Gastrointestinal: Negative for: Nausea, Vomiting Musculoskeletal: Positive for: Leg Pain (bilateral leg pain and swelling ) Skin: Positive for: Other (bilateral lower leg redness ) Physical Exam - Physical Exam Appears: Non-toxic, No Acute Distress Skin: Warm, Dry, Other (mild erythema right lower leg, ) Head: Atraumatic, Normacephalic Oral Mucosa: Moist Neck: Normal ROM, Supple Chest: Symmetrical, No Deformity Cardiovascular: Rhythm Regular, No Murmur Respiratory: Normal Breath Sounds, No Rales, No Rhonchi, No Wheezing Gastrointestinal/Abdominal: Soft, No Tenderness, No Guarding, No Rebound, Other (obese) Extremity: No Normal ROM (bilateral hips, knwws, ankles but +PROM), Pedal Edema (bilateral +1 ) Neurological/Psych: Oriented x3, Normal Speech (speaking full sentences ), Normal Cognition, No Other (focal deficits) ED Course And Treatment - Laboratory Results Result Diagrams: 08/31/18 14:22 08/31/18 14:22 ECG: Interpreted By Me ECG Rhythm: V Paced ECG Interpretation: No Acute Changes Rate From EC O2 Sat by Pulse Oximetry: 98 (on RA) Pulse Ox Interpretation: Normal - Radiology CXR: Interpreted by Me CXR Interpretation: Yes: Other (CHF) Progress Note: EKG, Bloodwork, CXR. Urinalysis, Venous Duplex Scan ordered and reviewed. Lasix 80mg IVP administered. Progress - Re-Evaluation Re-evaluation Note: 08/31/18 15:23 d/w dr ramey AWARE OF ER FINDINGS WILL ADMIT. VENOUS DUPLEX PENDING - Data Reviewed Data Reviewed: Lab, Diagnostic imaging, EKG, Old records Disposition Counseled Patient/Family Regarding: Studies Performed, Diagnosis - Disposition Disposition: HOSPITALIZED Disposition Time: 15:24 Condition: STABLE - POA Present On Arrival: Poor Glycemic Control - Clinical Impression Clinical Impression: CHF exacerbation, Joint pain - Scribe Statement The provider has reviewed the documentation as recorded by the Sena Sue All medical record entries made by the Nikolaiibsameer were at my direction and personally dictated by me. I have reviewed the chart and agree that the record accurately reflects my personal performance of the history, physical exam, medical decision making, and the department course for this patient. I have also personally directed, reviewed, and agree with the discharge instructions and disposition.
[2018-08-31 14:27] LABS: BASO % 0.4 % (0.0-2.0); EOS # 0.2 K/uL (0.0-0.7); EOS % 1.9 % (0.0-4.0); HEMOGLOBIN 11.3 g/dL (11.0-16.0); LYMPH # 1.5 K/uL (1.0-4.3); LYMPH % 13.2 % (20.0-40.0); MEAN CELL VOLUME 77.6 fL (81.0-99.0); MEAN CORPUSCULAR HEMOGLOBIN 24.6 pg (27.0-31.0); MEAN CORPUSCULAR HGB CONC 31.7 g/dL (33.0-37.0); MEAN PLATELET VOLUME 9.3 fL (7.2-11.7); MONO # 0.9 K/uL (0.0-0.8); MONO % 7.5 % (0.0-10.0); NEUT # 8.9 K/uL (1.8-7.0); RBC 4.59 Mil/uL (3.80-5.20); RED CELL DISTRIBUTION WIDTH 18.3 % (11.5-14.5); WHITE BLOOD COUNT 11.6 K/uL (4.8-10.8)
[2018-08-31 14:43] LABS: ALB/GLOB RATIO 1.4 (1.0-2.1); ALBUMIN 4.1 g/dL (3.5-5.0); AST/SGOT 18 U/L (14-36); BLOOD UREA NITROGEN 16 mg/dL (7-17); CALCIUM 8.8 mg/dl (8.6-10.4); GFR NON-AFRICAN AMERICAN > 60
[2018-08-31 14:50] LABS: ALT/SGPT < 6 U/L (9-52)
[2018-08-31 14:57] LABS: B-TYPE NATRIURETIC PEPTIDE 1050 pg/mL (0-900)
--- NOTE | 2018-08-31 15:30 | RAD ---
Date of service: 08/31/2018 PROCEDURE: CHEST RADIOGRAPH, 1 VIEW HISTORY: SOB COMPARISON: 06/29/2018 FINDINGS: LUNGS: Examination limited due to patient body habitus. No infiltrate. PLEURA: No pneumothorax or pleural fluid seen. CARDIOVASCULAR: There is atherosclerotic calcification of the aortic arch. Mild cardiomegaly. Permanent pacemaker. No congestive change. OSSEOUS STRUCTURES: No significant abnormalities. VISUALIZED UPPER ABDOMEN: Normal. OTHER FINDINGS: None. IMPRESSION: No active disease.
[2018-08-31] MEDS ORDERED: Albuterol-Ipratrop 3 mg / 0.5 (3 ml) UD INH PRN (18:01)
--- NOTE | 2018-08-31 18:14 | CP.PCM.HP ---
History of Present Illness - History of Present Illness History of Present Illness: Pt admitted with sob, leg edema and elevated bmp PT STATES SHE has not been able to ambulate well due to leg swelling, legs have been red as per pt and she has been having subjective fever pt denies chest pain She states her asthma has been better and she was taking medrol for a recent acute exacerbation. Past Patient History - Infectious Disease Hx of Infectious Diseases: None - Past Medical History & Family History Past Medical History?: Yes - Past Social History Smoking Status: Never Smoked - CARDIAC Hx Congestive Heart Failure: Yes Hx Hypercholesterolemia: Yes Hx Hypertension: Yes Hx Pacemaker: Yes - PULMONARY Hx Asthma: Yes Hx Chronic Obstructive Pulmonary Disease (COPD): Yes - NEUROLOGICAL Hx Neurological Disorder: Yes Hx Vertigo: Yes Other/Comment: SCIATICA RIGHT SIDE - HEENT Hx HEENT Problems: Yes Other/Comment: HX: THYROID NODULE - RENAL Hx Chronic Kidney Disease: No - ENDOCRINE/METABOLIC Hx Endocrine Disorders: Yes Hx Diabetes Mellitus Type 1: Yes Hx Diabetes Mellitus Type 2: Yes - HEMATOLOGICAL/ONCOLOGICAL Hx Blood Disorders: No - INTEGUMENTARY Hx Dermatological Problems: No - MUSCULOSKELETAL/RHEUMATOLOGICAL Hx Arthritis: Yes - GASTROINTESTINAL Hx Gastrointestinal Disorders: Yes Hx Hemorrhoids: Yes - GENITOURINARY/GYNECOLOGICAL Hx Genitourinary Disorders: No - PSYCHIATRIC Hx Anxiety: Yes Hx Substance Use: No - SURGICAL HISTORY Hx Surgeries: Yes Hx Section: Yes (X1) Other/Comment: HX: COLON POLYPECTOMY, THRYROID BIOPSY - ANESTHESIA Hx Anesthesia: Yes Hx Anesthesia Reactions: No Hx Malignant Hyperthermia: No Meds Allergies/Adverse Reactions: Allergies Allergy/AdvReac Type Severity Reaction Status Date / Time No Known Allergies Allergy Verified 05/16/18 09:31 Results - Vital Signs Recent Vital Signs: Last Vital Signs Temp 98.4 F 08/31/18 14:04 Pulse 75 08/31/18 15:59 Resp 18 08/31/18 13:31 BP 126/61 08/31/18 15:59 Pulse Ox 95 08/31/18 15:59 - Labs Result Diagrams: 08/31/18 14:22 08/31/18 14:22 Labs: Laboratory Results - last 24 hr 08/31/18 08/31/18 08/31/18 13:29 14:22 14:22 WBC 11.6 H RBC 4.59 Hgb 11.3 Hct 35.6 MCV 77.6 L MCH 24.6 L MCHC 31.7 L RDW 18.3 H Plt Count 292 MPV 9.3 Neut % (Auto) 77.0 H Lymph % (Auto) 13.2 L [place] % (Auto) 7.5 Eos % (Auto) 1.9 Baso % (Auto) 0.4 Neut # (Auto) 8.9 H Lymph # (Auto) 1.5 [place] # (Auto) 0.9 H Eos # (Auto) 0.2 Baso # (Auto) 0.0 Sodium 140 Potassium 4.0 Chloride 100 Carbon Dioxide 30 Anion Gap 15 BUN 16 Creatinine 0.8 Est GFR ( Amer) > 60 Est GFR (Non-Af Amer) > 60 POC Glucose (mg/dL) 151 H Random Glucose 134 H D Calcium 8.8 Total Bilirubin 0.5 AST 18 ALT < 6 L D Alkaline Phosphatase 71 Troponin I < 0.0120 NT-Pro-B Natriuret Pep 1050 H Total Protein 7.1 Albumin 4.1 Globulin 3.0 Albumin/Globulin Ratio 1.4
[2018-08-31 18:17] LABS: SQUAMOUS EPITHIAL 2 /hpf (0-5); URINE BACTERIA OCC (<OCC); URINE BILIRUBIN NEGATIVE (NEGATIVE); URINE BLOOD 1+ (NEGATIVE); URINE CLARITY Clear (Clear); URINE COLOR Straw (YELLOW); URINE GLUCOSE (UA) NORMAL (Normal); URINE LEUKOCYTE ESTERASE NEG Leu/uL (Negative); URINE PROTEIN NEGATIVE (NEGATIVE); URINE UROBILINOGEN NORMAL mg/dL (0.2-1.0)
[2018-08-31] MEDS: Albuterol-Ipratrop 3 mg / 0.5 (3 ml) UD INH SCH (20:25)
[2018-08-31] MEDS ORDERED: Oxycodone/Acetaminophen 5/325 mg Tab ONE (21:00)
[2018-08-31] MEDS: Oxycodone/Acetaminophen 5/325 mg Tab PO PRN (21:05)
[2018-08-31] MEDS ORDERED: Insulin Detemir 100 units/ml Vial (Levemir) SC ONE (21:30)
[2018-08-31] MEDS: Insulin Detemir 100 units/ml Vial (Levemir) SC SCH (21:50)
[2018-08-31 22:37] LABS: BLOOD UREA NITROGEN 15 mg/dL (7-17); CALCIUM 8.6 mg/dl (8.6-10.4); GFR NON-AFRICAN AMERICAN > 60
[2018-09-01] MEDS: Oxycodone/Acetaminophen 5/325 mg Tab PO PRN ×2 (02:41→08:29)
[2018-09-01] MEDS ORDERED: Oxycodone/Acetaminophen 5/325 mg Tab ONE ×2 (02:43→08:29)
[2018-09-01] MEDS ORDERED: Fluticasone-Vilanterol 100/25mcg Diskus INH SCH (08:00)
[2018-09-01] MEDS ORDERED: Home Med 1 UNIT (Sitagliptin Phos/Metformin Hcl [Janumet 50-1,000 Mg Tablet] 1 TAB) PO SCH (10:00)
[2018-09-01] MEDS ORDERED: EXENATIDE MICROSPHERES SQ SCH (10:00)
[2018-09-01] MEDS ORDERED: cefTRIAXone IV 1 gm in Dextros 50 ML IVPB SCH (10:00)
[2018-09-01] MEDS: Omega-3-Acid Ethyl Esters 1 GM Cap PO SCH (11:36)
[2018-09-01] MEDS: (Novolog) Insulin Aspart, Recombinant 100 u/ml 10 ml vial SC SCH ×3 (11:37→17:38)
[2018-09-01] MEDS: Saccharomyces Boulardi 250 mg Cap PO SCH (11:38)
[2018-09-01] MEDS: Hydrocortisone 2.5% Rectal Cream(30 gm) PR SCH ×2 (11:49→18:55)
[2018-09-01] MEDS: diltiaZEM 120 mg/24 Hours CD Cap PO SCH ×2 (13:31→13:39)
[2018-09-01] MEDS: cefTRIAXone IV 1 gm in Dextros 50 ML IVPB SCH (13:32)
[2018-09-01] MEDS ORDERED: Glucagon Recombinant 1 mg Inj IV STA ×2 (13:59→14:06)
[2018-09-01] MEDS ORDERED: Naloxone 0.4 mg/ml Inj (Adult) ONE (14:00)
[2018-09-01] MEDS ORDERED: Sodium Chloride 0.9% 500 ML IV ONE (14:01)
[2018-09-01] MEDS ORDERED: Glucagon Recombinant 1 mg Inj ONE (14:03)
--- NOTE | 2018-09-01 14:32 | CP.PCM.CON ---
History of Present Illness - History of Present Illness History of Present Illness: I was asked to see patient by Dr Tucker. Patient seen 09/01/18 [id number] Patient is a 73 year old female with morbid obesity, HTN, chronic atrial fibrillation PPM, DM who presents with leg pain. The patient complains of pain of the legs on palpation which began 8 days ago. She states her pain is unbearable, and there is pain to touch. She also had associated leg edema Review of Systems - Constitutional Constitutional: absent: As Per HPI, Anorexia, Chills, Daytime Sleepiness, Excessive Sweating, Fatigue, Fever, Frequent Falls, Headache, Increased Appetite, Lethargy, Malaise, Night Sweats, Snoring, Sleep Apnea, Weight Gain, Weight Loss, Weakness, Other - EENT Eyes: absent: As Per HPI, Blind Spots, Blurred Vision, Change in Vision, Decreased Night Vision, Diplopia, Discharge, Dry Eye, Exophthalmos, Floaters, Irritation, Itchy Eyes, Loss of Peripheral Vision, Pain, Photophobia, Requires Corrective Lenses, Sees Flashes, Spots in Vision, Tunnel Vision, Other Visual Disturbances, Loss of Vision, Other Ears: absent: As Per HPI, Decreased Hearing, Ear Discharge, Ear Pain, Tinnitus, Abnormal Hearing, Disequilibrium, Dizziness, Other Nose/Mouth/Throat: absent: As Per HPI, Epistaxis, Nasal Congestion, Nasal Discharge, Nasal Obstruction, Nasal Trauma, Nose Pain, Post Nasal Drip, Sinus Pain, Sinus Pressure, Bleeding Gums, Change in Voice, Dental Pain, Dry Mouth, Dysphagia, Halitosis, Hoarsness, Lip Swelling, Mouth Lesions, Mouth Pain, Odynophagia, Sore Throat, Throat Swelling, Tongue Swelling, Facial Pain, Neck Pain, Neck Mass, Other - Cardiovascular Cardiovascular: Leg Edema - Respiratory Respiratory: absent: As Per HPI, Cough, Dyspnea, Hemoptysis, Dyspnea on Exertion, Wheezing, Snoring, Stridor, Pain on Inspiration, Chest Congestion, Excessive Mucous Production, Change in Mucous Color, Pain with Coughing, Other - Gastrointestinal Gastrointestinal: absent: As Per HPI, Abdominal Pain, Belching, Bloating, Change in Bowel Habits, Change in Stool Character, Coffee Ground Emesis, Constipation, Cramping, Diarrhea, Dyspepsia, Dysphagia, Early Satiety, Excessive Flatus, Fecal Incontinence, Heartburn, Hematemesis, Hematochezia, Loose Stools, Melena, Nausea, Odynophagia, Temesmus, Vomiting, Other - Genitourinary Genitourinary: absent: As Per HPI, Change in Urinary Stream, Difficulty Urinating, Dysuria, Flank Pain, Hematuria, Pyuria, Nocturia, Urinary Incontinence, Urinary Frequency, Urinary Hesitance, Urinary Urgency, Voiding Freq/Small Amts, Freq UTI, Hx Renal/Bladder Calculi, Hx /Renal Surgery, Bl adder Distension, Other - Musculoskeletal Musculoskeletal: Radiating Pain into Limb - Integumentary Integumentary: absent: As Per HPI, Acne, Alopecia, Bleeding Lesions, Change in Hair, Change in Nails, Change in Pigmentation, Changing Lesions, Dry Skin, Erythema, Furuncle, Hirsutism, Lesions, New Lesions, Non-Healing Lesions, Photosensitivity, Pruritus, Rash, Skin Pain, Skin Ulcer, Sores, Striae, Swelling, Unusual Bruising, Wounds, Jaundice, Other - Neurological Neurological: absent: As Per HPI, Abnormal Gait, Abnormal Hearing, Abnormal Movements, Abnormal Speech, Behavioral Changes, Burning Sensations, Confusion, Convulsions, Disequilibrium, Dizziness, Numbness, Focal Weakness, Frequent Falls, Headaches, Lack of Coordination, Loss of Vision, Memory Loss, Paresthesias, Radicular Pain, Restless Legs, Sensory Deficit, Syncope, Tingling, Tremor, Vertigo, Weakness, Other Visual Disturbances, Other - Psychiatric Psychiatric: absent: As Per HPI, Abnormal Sleep Pattern, Anhedonia, Anxiety, Auditory Hallucinations, Behavioral Changes, Change in Appetite, Change in Libido, Confusion, Depression, Difficulty Concentrating, Hallucinations, Homicidal Ideation, Hopelessness, Irritability, Memory Loss, Mood Swings, Panic Attacks, Paranoia, Suicidal Ideation, Visual Hallucinations, Tactile Hallucinations, Other - Endocrine Endocrine: absent: As Per HPI, Change in Body Appearance, Change in Libido, Cold Intolorance, Deepening of Voice, Excessive Sweating, Fatigue, Flushing, Heat Intolorance, Increase in Ring/Shoe/Hat Size, Palpitations, Polydipsia, Polyphagia, Polyuria, Other - Hematologic/Lymphatic Hematologic: absent: As Per HPI, Easy Bleeding, Easy Bruising, Lymphadenopathy, Other Past Patient History - Infectious Disease Hx of Infectious Diseases: None - Past Medical History & Family History Past Medical History?: Yes - Past Social History Smoking Status: Never Smoked - CARDIAC Hx Congestive Heart Failure: Yes Hx Hypercholesterolemia: Yes Hx Hypertension: Yes Hx Pacemaker: Yes - PULMONARY Hx Asthma: Yes Hx Chronic Obstructive Pulmonary Disease (COPD): Yes - NEUROLOGICAL Hx Neurological Disorder: Yes Hx Vertigo: Yes Other/Comment: SCIATICA RIGHT SIDE - HEENT Hx HEENT Problems: Yes Other/Comment: HX: THYROID NODULE - RENAL Hx Chronic Kidney Disease: No - ENDOCRINE/METABOLIC Hx Endocrine Disorders: Yes Hx Diabetes Mellitus Type 1: Yes Hx Diabetes Mellitus Type 2: Yes - HEMATOLOGICAL/ONCOLOGICAL Hx Blood Disorders: No - INTEGUMENTARY Hx Dermatological Problems: No - MUSCULOSKELETAL/RHEUMATOLOGICAL Hx Arthritis: Yes - GASTROINTESTINAL Hx Gastrointestinal Disorders: Yes Hx Hemorrhoids: Yes - GENITOURINARY/GYNECOLOGICAL Hx Genitourinary Disorders: No - PSYCHIATRIC Hx Anxiety: Yes Hx Substance Use: No - SURGICAL HISTORY Hx Surgeries: Yes Hx Section: Yes (X1) Other/Comment: HX: COLON POLYPECTOMY, THRYROID BIOPSY - ANESTHESIA Hx Anesthesia: Yes Hx Anesthesia Reactions: No Hx Malignant Hyperthermia: No Meds Allergies/Adverse Reactions: Allergies Allergy/AdvReac Type Severity Reaction Status Date / Time No Known Allergies Allergy Verified 05/16/18 09:31 - Medications Medications: Current Medications Albuterol/Ipratropium (Duoneb 3 Mg/0.5 Mg (3 Ml) Ud) 3 ml INH Q2H PRN PRN Reason: Shortness of Breath Albuterol/Ipratropium (Duoneb 3 Mg/0.5 Mg (3 Ml) Ud) 3 ml INH RQ6 [facility] [place] Last Admin: 08/31/18 20:25 Dose: 3 ml Alprazolam (Xanax) 0.25 mg PO BID PRN PRN Reason: Anxiety Stop: 09/07/18 18:02 Budesonide (Pulmicort Respules) 1 mg INH RQ24 [facility] Carvedilol (Coreg) 25 mg PO BID [facility] [place] Last Admin: 09/01/18 11:36 Dose: 25 mg Dabigatran (Pradaxa) 150 mg PO BID [facility] [place] Last Admin: 09/01/18 11:46 Dose: Not Given Diltiazem HCl (Cardizem Cd) 120 mg PO DAILY [facility] [place] Last Admin: 09/01/18 13:39 Dose: Not Given Fluticasone/Vilanterol (Breo Ellipta 100-25 Mcg Inh) 1 puff INH RQ24 [facility] [place] Furosemide (Lasix) 40 mg IVP BID [facility] [place] Last Admin: 09/01/18 11:38 Dose: 40 mg Home Med (Exenatide Microspheres [Bydureon]) 1 unit SQ DAILY [facility] Home Med (Sitagliptin Phos/Metformin Hcl [Janumet 50-1,000 Mg Tablet]) 1 tab PO DAILY [facility] Med (Sitagliptin Phos/Metformin Hcl [Janumet 50-1,000 Mg Tablet]) 1 tab PO BID [facility] Hydrocortisone (Anusol-Hc) 1 gm OH BID [facility] [place] Last Admin: 09/01/18 11:49 Dose: Not Given Ceftriaxone Sodium (Rocephin Iv 1 Gm Duplex) 50 mls @ 100 mls/hr IVPB DAILY [facility] [place]; Protocol Last Admin: 09/01/18 13:32 Dose: 100 mls/hr Sodium Chloride (Sodium Chloride 0.9%) 500 mls @ 1,000 mls/hr IV .Q30M ONE Stop: 09/01/18 14:30 Last Admin: 09/01/18 14:24 Dose: 1,000 mls/hr Insulin Aspart (Novolog) 8 unit SC TID [facility] [place] Last Admin: 09/01/18 11:37 Dose: 8 units Insulin Detemir (Levemir) 20 unit SC HS [facility] [place] Last Admin: 08/31/18 21:50 Dose: 20 units Montelukast Sodium (Singulair) 10 mg PO DAILY [facility] [place] Last Admin: 09/01/18 11:36 Dose: 10 mg [id number] Ethyl Esters (Lovaza) 1 gm PO DAILY [facility] [place] Last Admin: 09/01/18 11:36 Dose: 1 gm Oxycodone/Acetaminophen (Percocet 5/325 Mg Tab) 1 tab PO Q6H PRN PRN Reason: Pain, severe (8-10) Stop: 09/03/18 18:25 Last Admin: 09/01/18 08:29 Dose: 1 tab Rosuvastatin Calcium (Crestor) 20 mg PO HS [facility] [place] Last Admin: 08/31/18 21:07 Dose: 20 mg Rosuvastatin Calcium (Crestor) 20 mg PO HS [facility] [place] Last Admin: 08/31/18 21:07 Dose: Not Given Saccharomyces Boulardii (Florastor) 250 mg PO DAILY [facility] [place] Last Admin: 09/01/18 11:38 Dose: 250 mg Physical Exam - Constitutional Appears: Non-toxic - Head Exam Head Exam: NORMAL INSPECTION - Eye Exam Eye Exam: Normal appearance - ENT Exam ENT Exam: Mucous Membranes Moist - Neck Exam Neck exam: Positive for: Full Rom - Respiratory Exam Respiratory Exam: Decreased Breath Sounds - Cardiovascular Exam Cardiovascular Exam: Irregular Rhythm - GI/Abdominal Exam GI & Abdominal Exam: Normal Bowel Sounds - Rectal Exam Rectal Exam: Deferred - Extremities Exam Extremities exam: Positive for: normal inspection, tenderness, pedal pulses present. Negative for: pedal edema - Back Exam Back exam: NORMAL INSPECTION - Neurological Exam Neurological exam: Alert, Oriented x3 - Psychiatric Exam Psychiatric exam: Normal Affect - Skin Skin Exam: Normal Color Results - Vital Signs Recent Vital Signs: Last Vital Signs Temp 97.2 F L 09/01/18 08:05 Pulse 70 09/01/18 08:15 Resp 22 09/01/18 08:16 BP 133/71 09/01/18 11:38 Pulse Ox 93 L 09/01/18 08:16 - Labs Result Diagrams: 08/31/18 14:22 08/31/18 22:18 Labs: Laboratory Results - last 24 hr 08/31/18 08/31/18 08/31/18 14:22 14:22 18:04 WBC 11.6 H RBC 4.59 Hgb 11.3 Hct 35.6 MCV 77.6 L MCH 24.6 L MCHC 31.7 L RDW 18.3 H Plt Count 292 MPV 9.3 Neut % (Auto) 77.0 H Lymph % (Auto) 13.2 L Ware % (Auto) 7.5 Eos % (Auto) 1.9 Baso % (Auto) 0.4 Neut # (Auto) 8.9 H Lymph # (Auto) 1.5 Ware # (Auto) 0.9 H Eos # (Auto) 0.2 Baso # (Auto) 0.0 Sodium 140 Potassium 4.0 Chloride 100 Carbon Dioxide 30 Anion Gap 15 BUN 16 Creatinine 0.8 Est GFR ( Amer) > 60 Est GFR (Non-Af Amer) > 60 POC Glucose (mg/dL) Random Glucose 134 H D Calcium 8.8 Total Bilirubin 0.5 AST 18 ALT < 6 L D Alkaline Phosphatase 71 Troponin I < 0.0120 NT-Pro-B Natriuret Pep 1050 H Total Protein 7.1 Albumin 4.1 Globulin 3.0 Albumin/Globulin Ratio 1.4 Urine Color Straw Urine Clarity Clear Urine pH 5.0 Ur Specific Sherman 1.005 Urine Protein Negative Urine Glucose (UA) Normal Urine Ketones Negative Urine Blood 1+ H Urine Nitrate Negative Urine Bilirubin Negative Urine Urobilinogen Normal Ur Leukocyte Esterase Neg Urine WBC (Auto) 1 Urine RBC (Auto) 1 Ur Squamous Epith Cells 2 Urine Bacteria Occ H 08/31/18 08/31/18 08/31/18 18:33 21:18 22:18 WBC RBC Hgb Hct MCV MCH MCHC RDW Plt Count MPV Neut % (Auto) Lymph % (Auto) Ware % (Auto) Eos % (Auto) Baso % (Auto) Neut # (Auto) Lymph # (Auto) Ware # (Auto) Eos # (Auto) Baso # (Auto) Sodium 138 Potassium 3.8 Chloride 98 Carbon Dioxide 31 H Anion Gap 13 BUN 15 Creatinine 0.9 Est GFR ( Amer) > 60 Est GFR (Non-Af Amer) > 60 POC Glucose (mg/dL) 181 H 204 H Random Glucose 198 H D Calcium 8.6 Total Bilirubin AST ALT Alkaline Phosphatase Troponin I NT-Pro-B Natriuret Pep Total Protein Albumin Globulin Albumin/Globulin Ratio Urine Color Urine Clarity Urine pH Ur Specific Sherman Urine Protein Urine Glucose (UA) Urine Ketones Urine Blood Urine Nitrate Urine Bilirubin Urine Urobilinogen Ur Leukocyte Esterase Urine WBC (Auto) Urine RBC (Auto) Ur Squamous Epith Cells Urine Bacteria 09/01/18 11:29 WBC RBC Hgb Hct MCV MCH MCHC RDW Plt Count MPV Neut % (Auto) Lymph % (Auto) Ware % (Auto) Eos % (Auto) Baso % (Auto) Neut # (Auto) Lymph # (Auto) Ware # (Auto) Eos # (Auto) Baso # (Auto) Sodium Potassium Chloride Carbon Dioxide Anion Gap BUN Creatinine Est GFR ( Amer) Est GFR (Non-Af Amer) POC Glucose (mg/dL) 159 H Random Glucose Calcium Total Bilirubin AST ALT Alkaline Phosphatase Troponin I NT-Pro-B Natriuret Pep Total Protein Albumin Globulin Albumin/Globulin Ratio Urine Color Urine Clarity Urine pH Ur Specific Sherman Urine Protein Urine Glucose (UA) Urine Ketones Urine Blood Urine Nitrate Urine Bilirubin Urine Urobilinogen Ur Leukocyte Esterase Urine WBC (Auto) Urine RBC (Auto) Ur Squamous Epith Cells Urine Bacteria - EKG Data EKG Interpreted by: Myself Assessment & Plan (1) Neuropathic pain Assessment and Plan: legs are warm. the exam is not consistent with PAD. she may have neuropathic pain. consider gabapentin or lyrica. Status: Acute (2) Chronic atrial fibrillation Assessment and Plan: anticoagulation. patient is rate controlled Status: Acute (3) HTN (hypertension) Assessment and Plan: blood pressure control Status: Acute
--- NOTE | 2018-09-01 14:56 | PCM.RRT ---
<Carolyn Harrison - Last Filed: 09/01/18 18:30> [facility] Nurses Assessment - Situation Date: 09/01/18 Time [facility] was called: 13:50 [facility] Responder Arrival Time:: 13:51 [facility] Location:: Med/Surg Room Number: 570A [facility] Reason for Call: Hypotension [facility] Called By: RN - IV IV Inserted during [facility]?: No IV Fluids Initiated During [facility]?: NS 500 cc - Respiratory [facility] Delivery Method: Nasal Cannula @L/min (2) Oxygen Flow Rate: 2 Received Nebulizer Treatments: No Was the Patient Ventilated with Bag/Mask 100% O2?: No Secretions Suctioned?: No Was the Patient Intubated?: No Was the Patient Placed on a Ventilator?: No - Medication Medications Administered During [facility]: Narcan 0.4 mg, Glucagon 1 mL - Diagnostic Test Ordered EKG: Yes Chest X-Ray: No CT Scan: No - Stat Labs Ordered [facility] Stat Labs Ordered: CBC, BMP, TROPONIN CPR started during [facility]?: No - Vital Signs Vital Signs: BP 78/39 HR 70 spO2 97% on 2L via NC RR 20 T 97.8 - Andrea Coma Scale Coma Scale Eye Opening: Spontaneous Coma Scale Motor: Obeys Commands Movement Coma Scale Verbal: Oriented Coma Scale Total: 15 - Sepsis Screen Part 1 Sepsis Screen Part 1: Hypotensive - Time [facility] Ended Time [facility] Ended: 14:15 - Vital Signs at end of [facility] Vital Signs at end of [facility]: BP 125/66 HR 70 spO2 99% on 2L via NC RR 20 - Recommendations 5) [facility] Level of Care Recommendations: Remain in current setting Notifications: Attending Physician, Family or Designated Caregiver (present) I.Reason for [facility] - A) Acute Change in Patient: (Select all that apply): Acute change in SBP below (<80) Subjective: Patient was sitting up on the edge of her bed when she suddenly told her visitor that she was feeling short of breath and dizzy. Nurse Mckayla was present. She laid the patient down and took her vitals. BP was 78/39. [facility] called. Patient placed in Trendelenberg. CXR from today reviewed and patient examined- lungs clear. Patient was started on NS 500 cc. Patient was given Percocet and Coreg in the morning. Therefore, Narcan, and glucagon administered. BP resolved. Patient was no longer dizzy or lightheaded. She was not in respiratory distress and was comfortable on 2L nasal cannula. - Neurological Status (Select all that apply): Alert, Responsive, Oriented, Verbal, Follows Commands - Respiratory Oxygen Delivery Method: Nasal Cannula @L/min (2) Oxygen Flow Rate: 2 - Constitutional Appears: Non-toxic, No Acute Distress - Head Head Exam: ATRAUMATIC, NORMAL INSPECTION - Eyes Eye Exam: EOMI, Normal appearance, PERRL - Respiratory Exam Respiratory Exam: Decreased Breath Sounds, NORMAL BREATHING PATTERN. absent: Accessory Muscle Use, Rales, Rhonchi, Wheezes, Respiratory Distress - Cardiovascular Exam Cardiovascular Exam: RRR, +S1, +S2. absent: Murmur - GI/Abdominal Exam GI & Abdominal Exam: Soft. absent: Distended, Tenderness Additional comments: obese - Neurological Exam Neurological Exam: Alert, Awake, CN II-XII Intact, Oriented x3 - Extremities Exam Extremities Exam: Tenderness Additional comments: erythema b/l very tender to palpation Plan - Assessment of Findings&Treatment Plan - Trendelenberg - Narcan 0.4 mg - Glucagon 1 mL - NS 500 cc bolus - EKG - DANIE - CBC - CMP, Mg, Ph - Notified attending, Dr. Tucker <Marcia Rg V - Last Filed: 09/07/18 17:03> [facility] Nurses Assessment - Vital Signs Vital Signs: Rapid Response Vital Sign Blood Pressure 84/44 Pulse Rate 70 Respiratory Rate 20 Temperature 97.8 F Oxygen Saturation 88 - Vital Signs at end of [facility] Vital Signs at end of [facility]: Rapid Response End Vital Sign Blood Pressure 126/66 Pulse Rate 70 Respiratory Rate 20 Temperature 98.6 F O2 Sat by Pulse Oximetry 97 Attending/Attestation - Attestation I have personally seen and examined this patient.: Yes I have fully participated in the care of the patient.: Yes I have reviewed all pertinent clinical information, including history, physical exam and plan: Yes Notes (Text): Late computer entry [facility] for hypotension patient seen and evaluated at bedside. Patient gentle NS bolus. Given dose Narcan to reverse opioid pain medication and 1 ampule of Glucagon to reverse beta-tata. Discussed with patient's PMD: Dr Tucker and patient's customer experience strategist. Patient status post [facility] hemogynamically stable asking for pain medication for right leg had refused doppler secondary to pain; i did advised her to wait on pain medication since her recent blood pressure drop. I also did advised nursing to please take patient's blood pressure with bigger cuff to get more accurate blood pressure measurements.
[2018-09-01 15:13] LABS: BASO # 0.1 K/uL (0.0-0.2); EOS # 0.3 K/uL (0.0-0.7); EOS % 2.7 % (0.0-4.0); HEMOGLOBIN 10.9 g/dL (11.0-16.0); LYMPH # 1.2 K/uL (1.0-4.3); LYMPH % 11.9 % (20.0-40.0); MEAN CORPUSCULAR HEMOGLOBIN 24.8 pg (27.0-31.0); MEAN CORPUSCULAR HGB CONC 32.1 g/dL (33.0-37.0); MEAN PLATELET VOLUME 9.3 fL (7.2-11.7); MONO # 0.7 K/uL (0.0-0.8); MONO % 6.7 % (0.0-10.0); NEUT # 7.6 K/uL (1.8-7.0); NEUT % 77.7 % (50.0-75.0); RBC 4.39 Mil/uL (3.80-5.20); RED CELL DISTRIBUTION WIDTH 17.7 % (11.5-14.5); WHITE BLOOD COUNT 9.8 K/uL (4.8-10.8)
[2018-09-01 16:00] LABS: ALB/GLOB RATIO 1.3 (1.0-2.1); ALBUMIN 3.7 g/dL (3.5-5.0); ALT/SGPT < 6 U/L (9-52); AST/SGOT 26 U/L (14-36); BLOOD UREA NITROGEN 15 mg/dL (7-17); CALCIUM 8.3 mg/dl (8.6-10.4); GFR NON-AFRICAN AMERICAN 55
--- NOTE | 2018-09-01 17:32 | CP.PCM.PN ---
Subjective - Date & Time of Evaluation Date of Evaluation: 09/01/18 Time of Evaluation: 17:38 - Subjective Subjective: Pt is feeling better states her legs are less swollen and less red today states she has had severe pain in her legs for one week pain is not localized but tender everywhere no trauma pt has not been on Pradaxa due to some coughing up blood, instead she has been on asa. Today she had a rapid response due to low bp, however she states she was awake and alert sitting up eating when the response was called. pt responded to fluids, but never had any mental status changes. Does report dizziness at the time. Objective - Vital Signs/Intake and Output Vital Signs (last 24 hours): Temp Pulse Resp BP Pulse Ox 98.7 F 70 18 127/70 96 09/01/18 17:04 09/01/18 17:04 09/01/18 17:04 09/01/18 17:04 09/01/18 17:04 - Medications Medications: Current Medications Albuterol/Ipratropium (Duoneb 3 Mg/0.5 Mg (3 Ml) Ud) 3 ml INH Q2H PRN PRN Reason: Shortness of Breath Albuterol/Ipratropium (Duoneb 3 Mg/0.5 Mg (3 Ml) Ud) 3 ml INH RQ6 [facility] Last Admin: 08/31/18 20:25 Dose: 3 ml Alprazolam (Xanax) 0.25 mg PO BID PRN PRN Reason: Anxiety Stop: 09/07/18 18:02 Budesonide (Pulmicort Respules) 1 mg INH RQ24 [facility] Carvedilol (Coreg) 25 mg PO BID [facility] Last Admin: 09/01/18 11:36 Dose: 25 mg Dabigatran (Pradaxa) 150 mg PO BID [facility] Last Admin: 09/01/18 11:46 Dose: Not Given Diltiazem HCl (Cardizem Cd) 120 mg PO DAILY [facility] Last Admin: 09/01/18 13:39 Dose: Not Given Fluticasone/Vilanterol (Breo Ellipta 100-25 Mcg Inh) 1 puff INH RQ24 [facility] Furosemide (Lasix) 40 mg IVP BID [facility] Last Admin: 09/01/18 11:38 Dose: 40 mg Home Med (Exenatide Microspheres [Bydureon]) 1 unit SQ DAILY [facility] Hydrocortisone (Anusol-Hc) 1 gm LA BID [facility] Last Admin: 09/01/18 11:49 Dose: Not Given Ceftriaxone Sodium (Rocephin Iv 1 Gm Duplex) 50 mls @ 100 mls/hr IVPB DAILY [facility]; Protocol Last Admin: 09/01/18 13:32 Dose: 100 mls/hr Insulin Aspart (Novolog) 8 unit SC TID [facility] Last Admin: 09/01/18 14:33 Dose: 8 units Insulin Detemir (Levemir) 20 unit SC HS [facility] Last Admin: 08/31/18 21:50 Dose: 20 units Metformin HCl (Glucophage) 1,000 mg PO BID [facility] Montelukast Sodium (Singulair) 10 mg PO DAILY [facility] Last Admin: 09/01/18 11:36 Dose: 10 mg [id number] Ethyl Esters (Lovaza) 1 gm PO DAILY [facility] Last Admin: 09/01/18 11:36 Dose: 1 gm Oxycodone/Acetaminophen (Percocet 5/325 Mg Tab) 1 tab PO Q6H PRN PRN Reason: Pain, severe (8-10) Stop: 09/03/18 18:25 Last Admin: 09/01/18 08:29 Dose: 1 tab Rosuvastatin Calcium (Crestor) 20 mg PO [facility] Last Admin: 08/31/18 21:07 Dose: 20 mg Rosuvastatin Calcium (Crestor) 20 mg PO [facility] Last Admin: 08/31/18 21:07 Dose: Not Given Saccharomyces Boulardii (Florastor) 250 mg PO DAILY [facility] Last Admin: 09/01/18 11:38 Dose: 250 mg Sitagliptin Phosphate (Januvia) 50 mg PO BID [facility] - Labs Labs: 09/01/18 15:10 09/01/18 15:10 - Constitutional Appears: Well, Non-toxic, No Acute Distress - ENT Exam ENT Exam: Mucous Membranes Moist - Respiratory Exam Respiratory Exam: Clear to Ausculation Bilateral. absent: Chest Wall Tenderness - Cardiovascular Exam Cardiovascular Exam: Irregular Rhythm, REGULAR RHYTHM. absent: JVD - GI/Abdominal Exam GI & Abdominal Exam: Soft. absent: Tenderness - Back Exam Back Exam: tenderness - Neurological Exam Neurological Exam: Alert, Awake, CN II-XII Intact Assessment and Plan - Assessment and Plan (Free Text) Assessment: 1. 8 weeks of difficulty walking due to; leg swelling legs tenderness some redness yesterday and wbc 11 no fever treated with abx and diuretics in agreement with Dr. Ortiz pt has diabetic neuropathy perhaps the acute on choronic leg pain was provoked by the leg swelling will start neurontin 2. elevated PBNP but no clinically in CHF will cut down on diuretics as they likely contributed to hypotension 3 diabetes cont meds 4 morbid obesity [place] risk for adverse event in general due to morbid obesity and other chronic condition including poor functioning status
[2018-09-01] MEDS ORDERED: Budesonide 0.5 mg/2 ml Inhal Susp UD INH SCH (18:00)
[2018-09-01] MEDS: Albuterol-Ipratrop 3 mg / 0.5 (3 ml) UD INH SCH (19:05)
[2018-09-01 19:52] LABS: BLOOD UREA NITROGEN 15 mg/dL (7-17); GFR NON-AFRICAN AMERICAN > 60
[2018-09-01 20:04] LABS: CK-MB 0.28 ng/mL (0.0-3.38)
--- NOTE | 2018-09-01 20:34 | CARD ---
APPROVED REPORT Date of service: 08/31/2018 EKG Measurement Heart [id number] <Conclusion> Atrial fibrillation Ventricular-paced rhythm Abnormal ECG
[2018-09-01] MEDS: Lidocaine 5% Oint(35 gm) TOP SCH (21:20)
[2018-09-01] MEDS: Insulin Detemir 100 units/ml Vial (Levemir) SC SCH (21:25)
[2018-09-02] MEDS: Albuterol-Ipratrop 3 mg / 0.5 (3 ml) UD INH SCH ×4 (02:11→19:08)
[2018-09-02] MEDS: Oxycodone/Acetaminophen 5/325 mg Tab PO PRN ×2 (06:29→17:39)
[2018-09-02 07:46] LABS: BLOOD UREA NITROGEN 14 mg/dL (7-17); CALCIUM 8.5 mg/dl (8.6-10.4); GFR NON-AFRICAN AMERICAN > 60
[2018-09-02] MEDS: cefTRIAXone IV 1 gm in Dextros 50 ML IVPB SCH (09:37)
[2018-09-02] MEDS: Lidocaine 5% Oint(35 gm) TOP SCH ×2 (09:37→17:42)
[2018-09-02] MEDS: Enoxaparin 40 mg Syringe SC SCH (09:38)
[2018-09-02] MEDS: Saccharomyces Boulardi 250 mg Cap PO SCH (09:38)
[2018-09-02] MEDS: Omega-3-Acid Ethyl Esters 1 GM Cap PO SCH (09:39)
[2018-09-02] MEDS: (Novolog) Insulin Aspart, Recombinant 100 u/ml 10 ml vial SC SCH ×3 (09:39→17:42)
[2018-09-02] MEDS ORDERED: diltiaZEM 120 mg/24 Hours CD Cap PO SCH (10:00)
[2018-09-02] MEDS: Hydrocortisone 2.5% Rectal Cream(30 gm) PR SCH ×2 (10:04→17:40)
--- NOTE | 2018-09-02 14:59 | CP.PCM.PN ---
Subjective - Date & Time of Evaluation Date of Evaluation: 09/02/18 - Subjective Subjective: Today noted the 1 out of 2 blood culture bottles +. Pt clinically not septic. NO fever, WBC down from admission. Pt had been on steroids prior to this admission. Pt is on Rocephin for leg cellulits. Objective - Vital Signs/Intake and Output Vital Signs (last 24 hours): Temp Pulse Resp BP Pulse Ox 98.1 F 79 20 111/55 L 97 09/02/18 09:41 09/02/18 13:03 09/02/18 09:41 09/02/18 09:43 09/02/18 13:03 Intake and Output: 09/02/18 09/02/18 06:59 18:59 Intake Total 400 Balance 400 - Medications Medications: Current Medications Albuterol/Ipratropium (Duoneb 3 Mg/0.5 Mg (3 Ml) Ud) 3 ml INH Q2H PRN PRN Reason: Shortness of Breath Albuterol/Ipratropium (Duoneb 3 Mg/0.5 Mg (3 Ml) Ud) 3 ml INH RQ6 [facility] Last Admin: 09/02/18 13:12 Dose: 3 ml Alprazolam (Xanax) 0.25 mg PO BID PRN PRN Reason: Anxiety Stop: 09/07/18 18:02 Aspirin (Aspirin Chewable) 81 mg PO DAILY [facility] Last Admin: 09/02/18 09:38 Dose: 81 mg Budesonide (Pulmicort Respules) 1 mg INH RQ24 [facility] Carvedilol (Coreg) 25 mg PO BID [facility] Last Admin: 09/02/18 09:43 Dose: 25 mg Colchicine (Colocrys) 1.2 mg PO DAILY [facility] Stop: 09/02/18 15:01 Colchicine (Colocrys) 0.6 mg PO DAILY [facility] Enoxaparin Sodium (Lovenox) 40 mg SC DAILY [facility] Last Admin: 09/02/18 09:38 Dose: 40 mg Fluticasone/Vilanterol (Breo Ellipta 100-25 Mcg Inh) 1 puff INH RQ24 [facility] Gabapentin (Neurontin) 300 mg PO BID [facility] Last Admin: 09/02/18 09:38 Dose: 300 mg Home Med (Exenatide Microspheres [Bydureon]) 1 unit SQ DAILY [facility] Hydrocortisone (Anusol-Hc) 1 gm [place] BID [facility] Last Admin: 09/02/18 10:04 Dose: 1 gm Ceftriaxone Sodium (Rocephin Iv 1 Gm Duplex) 50 mls @ 100 mls/hr IVPB DAILY [facility]; Protocol Last Admin: 09/02/18 09:37 Dose: 100 mls/hr Insulin Aspart (Novolog) 8 unit SC TID [facility] Last Admin: 09/02/18 13:35 Dose: 8 units Insulin Detemir (Levemir) 20 unit SC HS [facility] Last Admin: 09/01/18 21:25 Dose: 20 units Lidocaine (Lidocaine 5%) 1 gm TOP BID [facility] Last Admin: 09/02/18 09:37 Dose: 1 gm Metformin HCl (Glucophage) 1,000 mg PO BID [facility] Last Admin: 09/02/18 09:38 Dose: 1,000 mg Montelukast Sodium (Singulair) 10 mg PO DAILY [facility] Last Admin: 09/02/18 09:36 Dose: 10 mg Dtxcp-4-Ainb Ethyl Esters (Lovaza) 1 gm PO DAILY [facility] Last Admin: 09/02/18 09:39 Dose: 1 gm Oxycodone/Acetaminophen (Percocet 5/325 Mg Tab) 1 tab PO Q6H PRN PRN Reason: Pain, severe (8-10) Stop: 09/03/18 18:25 Last Admin: 09/02/18 06:29 Dose: 1 tab Rosuvastatin Calcium (Crestor) 20 mg PO HS [facility] Last Admin: 09/01/18 21:25 Dose: 20 mg Saccharomyces Boulardii (Florastor) 250 mg PO DAILY [facility] Last Admin: 09/02/18 09:38 Dose: 250 mg Sitagliptin Phosphate (Januvia) 50 mg PO BID [facility] Last Admin: 09/02/18 09:38 Dose: 50 mg - Labs Labs: 09/01/18 15:10 09/02/18 07:28 Assessment and Plan - Assessment and Plan (Free Text) Assessment: 1. Positive blood culture one out of the set not sure is real positive will repeat cont rocephin for cellulitits 2. possible gout will avoid steroids and nsaid due to diabetes and gi issues colchicine dose given for acute gout based on new guidelines 3. leg pain refusing leg us started on neurontin yesterday
--- NOTE | 2018-09-02 16:44 | RAD ---
Date of service: 09/02/2018 PROCEDURE: Bilateral Feet Radiographs. HISTORY: pain b/l feet COMPARISON: None. FINDINGS: BONES: Right Foot: No fracture. Plantar calcaneal spur. No lytic or blastic osseous lesion. Left Foot: No fracture bunion. Mild hallux valgus. Plantar calcaneal spur JOINTS: Right Foot: Normal. No osteoarthritis. Left Foot: Normal. No osteoarthritis. SOFT TISSUES: Right Foot: Normal. Left Foot: Normal. OTHER FINDINGS: None. IMPRESSION: Left hallux valgus with bunion bilateral plantar calcaneal spur.
--- NOTE | 2018-09-02 18:39 | CP.PCM.CON ---
History of Present Illness - History of Present Illness History of Present Illness: Podiatry Consult Note for Dr. Hobson 73F seen at bedside complaining of b/l LE edema and pain. Patient states that the pain has been present for several weeks and is worse with touch. She denies any treatment for the pain or swelling up to this point. She also denies any pain out of proportion in the back of her calves when squeezed. She is AAO x 3 and NAD at time of visit. Denies any recent N/V/F/C/CP/SOB/D Review of Systems - Review of Systems All systems: reviewed and no additional remarkable complaints except Review of Systems: as per HPI Past Patient History - Infectious Disease Hx of Infectious Diseases: None - Past Medical History & Family History Past Medical History?: Yes - Past Social History Smoking Status: Never Smoked - CARDIAC Hx Cardiac Disorders: Yes Hx Congestive Heart Failure: Yes Hx Hypercholesterolemia: Yes Hx Hypertension: Yes - PULMONARY Hx Respiratory Disorders: Yes Hx Chronic Obstructive Pulmonary Disease (COPD): Yes - NEUROLOGICAL Hx Neurological Disorder: Yes Hx Vertigo: Yes Other/Comment: SCIATICA RIGHT SIDE - HEENT Hx HEENT Problems: Yes Other/Comment: HX: THYROID NODULE - RENAL Hx Chronic Kidney Disease: No - ENDOCRINE/METABOLIC Hx Endocrine Disorders: Yes Hx Diabetes Mellitus Type 2: Yes - HEMATOLOGICAL/ONCOLOGICAL Hx Blood Disorders: No - INTEGUMENTARY Hx Dermatological Problems: No - MUSCULOSKELETAL/RHEUMATOLOGICAL Hx Musculoskeletal Disorders: Yes Hx Arthritis: Yes Hx Falls: No - GASTROINTESTINAL Hx Gastrointestinal Disorders: Yes Hx Hemorrhoids: Yes - GENITOURINARY/GYNECOLOGICAL Hx Genitourinary Disorders: No - PSYCHIATRIC Hx Psychophysiologic Disorder: Yes Hx Anxiety: Yes Hx Substance Use: No - SURGICAL HISTORY Hx Surgeries: Yes Hx Section: Yes (X1) Other/Comment: HX: COLON POLYPECTOMY, THRYROID BIOPSY - ANESTHESIA Hx Anesthesia: Yes Hx Anesthesia Reactions: No Meds Allergies/Adverse Reactions: Allergies Allergy/AdvReac Type Severity Reaction Status Date / Time No Known Allergies Allergy Verified 05/16/18 09:31 - Medications Medications: Current Medications Albuterol/Ipratropium (Duoneb 3 Mg/0.5 Mg (3 Ml) Ud) 3 ml INH Q2H PRN PRN Reason: Shortness of Breath Albuterol/Ipratropium (Duoneb 3 Mg/0.5 Mg (3 Ml) Ud) 3 ml INH RQ6 [facility] Last Admin: 09/02/18 13:12 Dose: 3 ml Alprazolam (Xanax) 0.25 mg PO BID PRN PRN Reason: Anxiety Stop: 09/07/18 18:02 Aspirin (Aspirin Chewable) 81 mg PO DAILY [facility] Last Admin: 09/02/18 09:38 Dose: 81 mg Budesonide (Pulmicort Respules) 1 mg INH RQ24 [facility] Carvedilol (Coreg) 25 mg PO BID [facility] Last Admin: 09/02/18 09:43 Dose: 25 mg Colchicine (Colocrys) 0.6 mg PO DAILY [facility] Enoxaparin Sodium (Lovenox) 40 mg SC DAILY [facility] Last Admin: 09/02/18 09:38 Dose: 40 mg Fluticasone/Vilanterol (Breo Ellipta 100-25 Mcg Inh) 1 puff INH RQ24 [facility] Gabapentin (Neurontin) 300 mg PO BID [facility] Last Admin: 09/02/18 17:40 Dose: 300 mg Home Med (Exenatide Microspheres [Bydureon]) 1 unit SQ DAILY [facility] Hydrocortisone (Anusol-Hc) 1 gm [place] BID [facility] Last Admin: 09/02/18 17:40 Dose: 1 gm Ceftriaxone Sodium (Rocephin Iv 1 Gm Duplex) 50 mls @ 100 mls/hr IVPB DAILY [facility]; Protocol Last Admin: 09/02/18 09:37 Dose: 100 mls/hr Insulin Aspart (Novolog) 8 unit SC TID [facility] Last Admin: 09/02/18 17:42 Dose: 8 units Insulin Detemir (Levemir) 20 unit SC HS [facility] Last Admin: 09/01/18 21:25 Dose: 20 units Lidocaine (Lidocaine 5%) 1 gm TOP BID [facility] Last Admin: 09/02/18 17:42 Dose: 1 gm Metformin HCl (Glucophage) 1,000 mg PO BID [facility] Last Admin: 09/02/18 17:40 Dose: 1,000 mg Montelukast Sodium (Singulair) 10 mg PO DAILY [facility] Last Admin: 09/02/18 09:36 Dose: 10 mg Xspok-8-Doxn Ethyl Esters (Lovaza) 1 gm PO DAILY [facility] Last Admin: 09/02/18 09:39 Dose: 1 gm Oxycodone/Acetaminophen (Percocet 5/325 Mg Tab) 1 tab PO Q6H PRN PRN Reason: Pain, severe (8-10) Stop: 09/03/18 18:25 Last Admin: 09/02/18 17:39 Dose: 1 tab Rosuvastatin Calcium (Crestor) 20 mg PO HS [facility] Last Admin: 09/01/18 21:25 Dose: 20 mg Saccharomyces Boulardii (Florastor) 250 mg PO DAILY [facility] Last Admin: 09/02/18 09:38 Dose: 250 mg Sitagliptin Phosphate (Januvia) 50 mg PO BID [facility] Last Admin: 09/02/18 17:40 Dose: 50 mg Physical Exam - Constitutional Appears: Well, Non-toxic, No Acute Distress - Extremities Exam Additional comments: LE focused exam: Vasc: DP/PT pulses faintly palpable 1/4 b/l. Skin temperature warm to warm from proximal to distal. CFT < 3 seconds to all digits b/l. Diffuse, pitting edema noted to b/l LE Neuro: Epicritic and protective sensation grossly intact b/l Derm: No open lesions, wounds, maceration, xerosis, abnormal pigmentation or abnormal growths noted. Serous "weeping" noted to left leg MSK: Diffuse pain on palpation noted with palpation and ROM b/l - Neurological Exam Neurological exam: Alert, Oriented x3 - Psychiatric Exam Psychiatric exam: Normal Affect, Normal Mood Results - Vital Signs Recent Vital Signs: Last Vital Signs Temp 98.3 F 09/02/18 15:00 Pulse 70 09/02/18 15:28 Resp 18 09/02/18 15:00 BP 116/59 L 09/02/18 15:00 Pulse Ox 97 09/02/18 15:15 - Labs Result Diagrams: 09/01/18 15:10 09/02/18 07:28 Labs: Laboratory Results - last 24 hr 09/01/18 09/01/18 09/01/18 17:12 19:36 21:46 Sodium 137 Potassium 3.8 Chloride 99 Carbon Dioxide 29 Anion Gap 12 BUN 15 Creatinine 0.9 Est GFR ( Amer) > 60 Est GFR (Non-Af Amer) > 60 POC Glucose (mg/dL) 143 H 202 H Random Glucose 177 H Uric Acid Calcium 8.0 L Total Creatine Kinase 33 CK-MB (Mass) 0.28 Troponin I < 0.0120 09/02/18 09/02/18 09/02/18 06:57 07:28 11:40 Sodium 137 Potassium 3.7 Chloride 101 Carbon Dioxide 28 Anion Gap 11 BUN 14 Creatinine 0.8 Est GFR ( Amer) > 60 Est GFR (Non-Af Amer) > 60 POC Glucose (mg/dL) 159 H 142 H Random Glucose 167 H Uric Acid 9.0 H Calcium 8.5 L Total Creatine Kinase CK-MB (Mass) Troponin I 09/02/18 17:14 Sodium Potassium Chloride Carbon Dioxide Anion Gap BUN Creatinine Est GFR ( Amer) Est GFR (Non-Af Amer) POC Glucose (mg/dL) 151 H Random Glucose Uric Acid Calcium Total Creatine Kinase CK-MB (Mass) Troponin I Assessment & Plan - Assessment and Plan (Free Text) Assessment: 73F seen for b/l LE swelling and pain Plan: Patient seen and evaluated with Dr. Hobson Vascular consult placed, f/u recs Venous duplex ordered, r/o DVT B/l Foot xrays ordered, f/u results No dressing applied at this time Podiatry will continue to follow while patient in house - Date & Time Date: 09/02/18 Time: 15:30
[2018-09-02] MEDS: Insulin Detemir 100 units/ml Vial (Levemir) SC SCH (21:11)
--- NOTE | 2018-09-02 23:44 | CP.PCM.CON ---
History of Present Illness - History of Present Illness History of Present Illness: Vascular Surgery Consult Note for Dr. Taylor Consult: Bilateral lower extremity edema CC: Lower extremity pain HPI: 73 year old female, past medical history of HTN, DM, COPD, sciatica, arthritis, chronic Afib s/p pacemaker, consulted for bilateral lower extremity edema that started 11 days ago with associated pain. Patient denies having these symptoms before. States the pain began suddenly, described as a burning, cramping sen sation that is constant 10/10. Since admission her swelling and pain has improved. Walking aggravates the pain, however she also exhibits symptoms at rest. Nothing alleviates her symptoms. Admits to subjective fevers at home. Denies chills, nausea, vomiting, diarrhea, SOB, chest pain, palpitations, or urinary symptoms. Of note, patient taken to ultrasound 3x and could not tolerate it because of the pain however she is now willing to try again as the pain has improved. PMH: See above PSH: Pacemaker, CT Angio of the lower extremities at [facility] [place] [facility] a few years ago, eye surgery FH: Heart disease SH: Tobacco usaage in past quit 8 years ago, denies alcohol and drugs ALL: NKDA Meds: See MAR Review of Systems - Constitutional Constitutional: absent: Chills, Fever - EENT Eyes: absent: Blurred Vision, Change in Vision Nose/Mouth/Throat: absent: Nasal Congestion, Nasal Discharge - Cardiovascular Cardiovascular: absent: Chest Pain, Dyspnea - Respiratory Respiratory: absent: Cough, Dyspnea - Gastrointestinal Gastrointestinal: absent: Abdominal Pain, Nausea, Vomiting - Genitourinary Genitourinary: absent: Difficulty Urinating, Dysuria - Musculoskeletal Musculoskeletal: absent: Back Pain, Neck Pain - Integumentary Integumentary: absent: Bleeding Lesions, Changing Lesions - Neurological Neurological: absent: Confusion, Dizziness - Psychiatric Psychiatric: absent: Anxiety, Depression Past Patient History - Infectious Disease Hx of Infectious Diseases: None - Past Medical History & Family History Past Medical History?: Yes - Past Social History Smoking Status: Never Smoked - CARDIAC Hx Cardiac Disorders: Yes Hx Congestive Heart Failure: Yes Hx Hypercholesterolemia: Yes Hx Hypertension: Yes - PULMONARY Hx Respiratory Disorders: Yes Hx Chronic Obstructive Pulmonary Disease (COPD): Yes - NEUROLOGICAL Hx Neurological Disorder: Yes Hx Vertigo: Yes Other/Comment: SCIATICA RIGHT SIDE - HEENT Hx HEENT Problems: Yes Other/Comment: HX: THYROID NODULE - RENAL Hx Chronic Kidney Disease: No - ENDOCRINE/METABOLIC Hx Endocrine Disorders: Yes Hx Diabetes Mellitus Type 2: Yes - HEMATOLOGICAL/ONCOLOGICAL Hx Blood Disorders: No - INTEGUMENTARY Hx Dermatological Problems: No - MUSCULOSKELETAL/RHEUMATOLOGICAL Hx Musculoskeletal Disorders: Yes Hx Arthritis: Yes Hx Falls: No - GASTROINTESTINAL Hx Gastrointestinal Disorders: Yes Hx Hemorrhoids: Yes - GENITOURINARY/GYNECOLOGICAL Hx Genitourinary Disorders: No - PSYCHIATRIC Hx Psychophysiologic Disorder: Yes Hx Anxiety: Yes Hx Substance Use: No - SURGICAL HISTORY Hx Surgeries: Yes Hx Section: Yes (X1) Other/Comment: HX: COLON POLYPECTOMY, THRYROID BIOPSY - ANESTHESIA Hx Anesthesia: Yes Hx Anesthesia Reactions: No Meds Allergies/Adverse Reactions: Allergies Allergy/AdvReac Type Severity Reaction Status Date / Time No Known Allergies Allergy Verified 05/16/18 09:31 - Medications Medications: Current Medications Albuterol/Ipratropium (Duoneb 3 Mg/0.5 Mg (3 Ml) Ud) 3 ml INH Q2H PRN PRN Reason: Shortness of Breath Albuterol/Ipratropium (Duoneb 3 Mg/0.5 Mg (3 Ml) Ud) 3 ml INH RQ6 [facility] Last Admin: 09/02/18 19:08 Dose: 3 ml Alprazolam (Xanax) 0.25 mg PO BID PRN PRN Reason: Anxiety Stop: 09/07/18 18:02 Aspirin (Aspirin Chewable) 81 mg PO DAILY [facility] Last Admin: 09/02/18 09:38 Dose: 81 mg Budesonide (Pulmicort Respules) 1 mg INH RQ24 [facility] Carvedilol (Coreg) 25 mg PO BID [facility] Colchicine (Colocrys) 0.6 mg PO DAILY [facility] Last Admin: 09/02/18 21:00 Dose: 0.6 mg Enoxaparin Sodium (Lovenox) 40 mg SC DAILY [facility] Last Admin: 09/02/18 09:38 Dose: 40 mg Fluticasone/Vilanterol (Breo Ellipta 100-25 Mcg Inh) 1 puff INH RQ24 [facility] Gabapentin (Neurontin) 300 mg PO BID [facility] Last Admin: 09/02/18 17:40 Dose: 300 mg Home Med (Exenatide Microspheres [Bydureon]) 1 unit SQ DAILY [facility] Hydrocortisone (Anusol-Hc) 1 gm [place] BID [facility] Last Admin: 09/02/18 17:40 Dose: 1 gm Ceftriaxone Sodium (Rocephin Iv 1 Gm Duplex) 50 mls @ 100 mls/hr IVPB DAILY [facility]; Protocol Last Admin: 09/02/18 09:37 Dose: 100 mls/hr Insulin Aspart (Novolog) 8 unit SC TID [facility] Last Admin: 09/02/18 17:42 Dose: 8 units Insulin Detemir (Levemir) 20 unit SC HS [facility] Last Admin: 09/02/18 21:11 Dose: 20 units Lidocaine (Lidocaine 5%) 1 gm TOP BID [facility] Last Admin: 09/02/18 17:42 Dose: 1 gm Metformin HCl (Glucophage) 1,000 mg PO BID [facility] Last Admin: 09/02/18 17:40 Dose: 1,000 mg Montelukast Sodium (Singulair) 10 mg PO DAILY [facility] Last Admin: 09/02/18 09:36 Dose: 10 mg Bdcfj-2-Jxzf Ethyl Esters (Lovaza) 1 gm PO DAILY [facility] Last Admin: 09/02/18 09:39 Dose: 1 gm Oxycodone/Acetaminophen (Percocet 5/325 Mg Tab) 1 tab PO Q6H PRN PRN Reason: Pain, severe (8-10) Stop: 09/03/18 18:25 Last Admin: 09/02/18 17:39 Dose: 1 tab Rosuvastatin Calcium (Crestor) 20 mg PO [facility] Last Admin: 09/02/18 21:04 Dose: 20 mg Saccharomyces Boulardii (Florastor) 250 mg PO DAILY [facility] Last Admin: 09/02/18 09:38 Dose: 250 mg Sitagliptin Phosphate (Januvia) 50 mg PO BID [facility] Last Admin: 09/02/18 17:40 Dose: 50 mg Physical Exam - Constitutional Appears: Well, Non-toxic, No Acute Distress - Head Exam Head Exam: ATRAUMATIC, NORMAL INSPECTION, NORMOCEPHALIC - Eye Exam Eye Exam: EOMI - ENT Exam ENT Exam: Mucous Membranes Dry - Respiratory Exam Additional comments: Nasal Canula - GI/Abdominal Exam GI & Abdominal Exam: Normal Bowel Sounds, Soft. absent: Tenderness - Extremities Exam Extremities exam: Positive for: calf tenderness, pedal edema, tenderness, pedal pulses present Additional comments: Palpable DP/PT pulses bilaterally Nonpitting edema of the lower extremities R>L w/ tenderness to palpation - Neurological Exam Neurological exam: Alert, Oriented x3 - Psychiatric Exam Psychiatric exam: Normal Affect, Normal Mood - Skin Skin Exam: Dry, Intact, Normal Color, Warm Results - Vital Signs Recent Vital Signs: Last Vital Signs Temp 98.3 F 09/02/18 15:00 Pulse 70 09/02/18 19:45 Resp 18 09/02/18 15:00 BP 101/62 09/02/18 18:55 Pulse Ox 97 09/02/18 15:15 - Labs Result Diagrams: 09/01/18 15:10 09/02/18 07:28 Labs: Laboratory Results - last 24 hr 09/02/18 09/02/18 09/02/18 06:57 07:28 11:40 Sodium 137 Potassium 3.7 Chloride 101 Carbon Dioxide 28 Anion Gap 11 BUN 14 Creatinine 0.8 Est GFR ( Amer) > 60 Est GFR (Non-Af Amer) > 60 POC Glucose (mg/dL) 159 H 142 H Random Glucose 167 H Uric Acid 9.0 H Calcium 8.5 L 09/02/18 09/02/18 17:14 21:55 Sodium Potassium Chloride Carbon Dioxide Anion Gap BUN Creatinine Est GFR ( Amer) Est GFR (Non-Af Amer) POC Glucose (mg/dL) 151 H 165 H Random Glucose Uric Acid Calcium Assessment & Plan - Assessment and Plan (Free Text) Assessment: 73F w/ new onset bilateral lower extremity edema Plan: Lower extremity ultrasound to rule out DVT - patient amenable to US at this time AE hose/compression stockings and Leg elevation once DVT ruled out DVT PPX Monitor respiratory status and vitals Further recommendations per Dr. Claudia Steele PGY1
[2018-09-03] MEDS: Albuterol-Ipratrop 3 mg / 0.5 (3 ml) UD INH SCH ×4 (01:27→19:11)
[2018-09-03] MEDS: Oxycodone/Acetaminophen 5/325 mg Tab PO PRN (05:29)
[2018-09-03] MEDS: Saccharomyces Boulardi 250 mg Cap PO SCH (09:55)
[2018-09-03] MEDS: Omega-3-Acid Ethyl Esters 1 GM Cap PO SCH (09:55)
[2018-09-03] MEDS: Enoxaparin 40 mg Syringe SC SCH (09:56)
[2018-09-03] MEDS: Hydrocortisone 2.5% Rectal Cream(30 gm) PR SCH ×2 (09:57→17:50)
[2018-09-03] MEDS: Lidocaine 5% Oint(35 gm) TOP SCH ×2 (09:57→17:50)
[2018-09-03] MEDS: (Novolog) Insulin Aspart, Recombinant 100 u/ml 10 ml vial SC SCH ×3 (09:58→17:49)
[2018-09-03] MEDS: cefTRIAXone IV 1 gm in Dextros 50 ML IVPB SCH (10:15)
--- NOTE | 2018-09-03 14:44 | CP.PCM.PN ---
Subjective - Date & Time of Evaluation Date of Evaluation: 09/03/18 Time of Evaluation: 14:41 - Subjective Subjective: Podiatry Progress Note for Dr. Hobson 73F seen at bedside for b/l LE edema and redness. Patient is AAO x 3 and NAD, resting comfortably in bed. Denies any acute overnight events or new pedal complaints. Denies any recent N/V/F/C/CP/SOB/D Objective - Vital Signs/Intake and Output Vital Signs (last 24 hours): Temp Pulse Resp BP Pulse Ox 98.1 F 70 20 116/67 96 09/03/18 08:14 09/03/18 12:21 09/03/18 08:14 09/03/18 09:55 09/03/18 08:14 Intake and Output: 09/03/18 09/03/18 06:59 18:59 Intake Total 200 Balance 200 - Medications Medications: Current Medications Albuterol/Ipratropium (Duoneb 3 Mg/0.5 Mg (3 Ml) Ud) 3 ml INH Q2H PRN PRN Reason: Shortness of Breath Albuterol/Ipratropium (Duoneb 3 Mg/0.5 Mg (3 Ml) Ud) 3 ml INH RQ6 [facility] Last Admin: 09/03/18 13:01 Dose: 3 ml Alprazolam (Xanax) 0.25 mg PO BID PRN PRN Reason: Anxiety Stop: 09/07/18 18:02 Aspirin (Aspirin Chewable) 81 mg PO DAILY [facility] Last Admin: 09/03/18 09:55 Dose: 81 mg Budesonide (Pulmicort Respules) 1 mg INH RQ24 [facility] Carvedilol (Coreg) 25 mg PO BID [facility] Last Admin: 09/03/18 09:55 Dose: 25 mg Colchicine (Colocrys) 0.6 mg PO DAILY [facility] Last Admin: 09/03/18 10:18 Dose: 0.6 mg Enoxaparin Sodium (Lovenox) 40 mg SC DAILY [facility] Last Admin: 09/03/18 09:56 Dose: 40 mg Fluticasone/Vilanterol (Breo Ellipta 100-25 Mcg Inh) 1 puff INH RQ24 [facility] Gabapentin (Neurontin) 300 mg PO BID [facility] Last Admin: 09/03/18 09:58 Dose: 300 mg Home Med (Exenatide Microspheres [Bydureon]) 1 unit SQ DAILY [facility] Hydrocortisone (Anusol-Hc) 1 gm [place] BID [facility] Last Admin: 09/03/18 09:57 Dose: 1 gm Ceftriaxone Sodium (Rocephin Iv 1 Gm Duplex) 50 mls @ 100 mls/hr IVPB DAILY [facility]; Protocol Last Admin: 09/03/18 10:15 Dose: 100 mls/hr Insulin Aspart (Novolog) 8 unit SC TID [facility] Last Admin: 09/03/18 14:05 Dose: 8 units Insulin Detemir (Levemir) 20 unit SC HS [facility] Last Admin: 09/02/18 21:11 Dose: 20 units Lidocaine (Lidocaine 5%) 1 gm TOP BID [facility] Last Admin: 09/03/18 09:57 Dose: 1 gm Metformin HCl (Glucophage) 1,000 mg PO BID [facility] Last Admin: 09/03/18 09:55 Dose: 1,000 mg Montelukast Sodium (Singulair) 10 mg PO DAILY [facility] Last Admin: 09/03/18 09:55 Dose: 10 mg Lqrlu-9-Cech Ethyl Esters (Lovaza) 1 gm PO DAILY [facility] Last Admin: 09/03/18 09:55 Dose: 1 gm Oxycodone/Acetaminophen (Percocet 5/325 Mg Tab) 1 tab PO Q6H PRN PRN Reason: Pain, severe (8-10) Stop: 09/03/18 18:25 Last Admin: 09/03/18 05:29 Dose: 1 tab Rosuvastatin Calcium (Crestor) 20 mg PO [facility] Last Admin: 09/02/18 21:04 Dose: 20 mg Saccharomyces Boulardii (Florastor) 250 mg PO DAILY [facility] Last Admin: 09/03/18 09:55 Dose: 250 mg Sitagliptin Phosphate (Januvia) 50 mg PO BID [facility] Last Admin: 09/03/18 09:55 Dose: 50 mg - Labs Labs: 09/01/18 15:10 09/02/18 07:28 - Constitutional Appears: Well, Non-toxic, No Acute Distress - Extremities Exam Additional comments: LE focused exam: Vasc: DP/PT pulses faintly palpable 1/4 b/l. Skin temperature warm to warm from proximal to distal. CFT < 3 seconds to all digits b/l. Diffuse, pitting edema noted to b/l LE Neuro: Epicritic and protective sensation grossly intact b/l Derm: No open lesions, wounds, maceration, xerosis, abnormal pigmentation or abnormal growths noted. Serous "weeping" noted to b/l legs MSK: Diffuse pain noted with palpation and ROM b/l - Neurological Exam Neurological Exam: Alert, Awake, Oriented x3 - Psychiatric Exam Psychiatric exam: Normal Affect, Normal Mood Assessment and Plan - Assessment and Plan (Free Text) Assessment: 73F seen at bedside for b/l LE edema and redness Plan: Patient seen and evaluated Plan discussed with Dr. Hobson Afebrile Continue abx per ID B/l foot xrays: No evidence of OM Per nursing, patient refusing all testing and will be discharged home tomorrow Podiatry will continue to follow while patient in house
[2018-09-03] MEDS: Insulin Detemir 100 units/ml Vial (Levemir) SC SCH (21:40)
[2018-09-03] MEDS ORDERED: Oxycodone/Acetaminophen 5/325 mg Tab PO PRN (21:46)
[2018-09-04 00:43] VITALS: RESP 20
[2018-09-04] MEDS: Albuterol-Ipratrop 3 mg / 0.5 (3 ml) UD INH SCH ×3 (01:46→13:24)
[2018-09-04 08:26] VITALS: TEMP 98.5; O2SAT 96
[2018-09-04] MEDS: Lidocaine 5% Oint(35 gm) TOP SCH (11:00)
[2018-09-04] MEDS: cefTRIAXone IV 1 gm in Dextros 50 ML IVPB SCH (11:00)
[2018-09-04] MEDS: Saccharomyces Boulardi 250 mg Cap PO SCH (11:00)
[2018-09-04] MEDS: Enoxaparin 40 mg Syringe SC SCH (11:00)
[2018-09-04] MEDS: Hydrocortisone 2.5% Rectal Cream(30 gm) PR SCH (11:00)
[2018-09-04] MEDS: Omega-3-Acid Ethyl Esters 1 GM Cap PO SCH (11:00)
[2018-09-04 11:39] VITALS: BP 124/73; PULSE 71
[2018-09-04] MEDS: (Novolog) Insulin Aspart, Recombinant 100 u/ml 10 ml vial SC SCH ×2 (11:46→13:16)
--- NOTE | 2018-09-04 15:46 | CP.PCM.PN ---
Subjective - Date & Time of Evaluation Date of Evaluation: 09/04/18 Time of Evaluation: 15:45 Objective - Vital Signs/Intake and Output Vital Signs (last 24 hours): Temp Pulse Resp BP Pulse Ox 98.5 F 71 20 124/73 96 09/04/18 08:00 09/04/18 11:38 09/04/18 08:00 09/04/18 11:38 09/04/18 08:00 - Medications Medications: Current Medications Albuterol/Ipratropium (Duoneb 3 Mg/0.5 Mg (3 Ml) Ud) 3 ml INH Q2H PRN PRN Reason: Shortness of Breath Albuterol/Ipratropium (Duoneb 3 Mg/0.5 Mg (3 Ml) Ud) 3 ml INH RQ6 [facility] Last Admin: 09/04/18 13:24 Dose: 3 ml Alprazolam (Xanax) 0.25 mg PO BID PRN PRN Reason: Anxiety Stop: 09/07/18 18:02 Last Admin: 09/03/18 21:18 Dose: 0.25 mg Aspirin (Aspirin Chewable) 81 mg PO DAILY [facility] Last Admin: 09/04/18 11:00 Dose: 81 mg Budesonide (Pulmicort Respules) 1 mg INH RQ24 [facility] Carvedilol (Coreg) 25 mg PO BID [facility] Last Admin: 09/04/18 11:00 Dose: 25 mg Colchicine (Colocrys) 0.6 mg PO DAILY [facility] Last Admin: 09/04/18 11:00 Dose: 0.6 mg Enoxaparin Sodium (Lovenox) 40 mg SC DAILY [facility] Last Admin: 09/04/18 11:00 Dose: 40 mg Fluticasone/Vilanterol (Breo Ellipta 100-25 Mcg Inh) 1 puff INH RQ24 [facility] Gabapentin (Neurontin) 300 mg PO BID [facility] Last Admin: 09/04/18 11:00 Dose: 300 mg Home Med (Exenatide Microspheres [Bydureon]) 1 unit SQ DAILY [facility] Hydrocortisone (Anusol-Hc) 1 gm MD BID [facility] Last Admin: 09/04/18 11:00 Dose: 1 gm Ceftriaxone Sodium (Rocephin Iv 1 Gm Duplex) 50 mls @ 100 mls/hr IVPB DAILY [facility]; Protocol Last Admin: 09/04/18 11:00 Dose: 100 mls/hr Insulin Aspart (Novolog) 8 unit SC TID [facility] Last Admin: 09/04/18 13:16 Dose: 8 units Insulin Detemir (Levemir) 20 unit SC HS [facility] Last Admin: 09/03/18 21:40 Dose: 20 units Lidocaine (Lidocaine 5%) 1 gm TOP BID [facility] Last Admin: 09/04/18 11:00 Dose: 1 gm Metformin HCl (Glucophage) 1,000 mg PO BID [facility] Last Admin: 09/04/18 11:00 Dose: 1,000 mg Montelukast Sodium (Singulair) 10 mg PO DAILY [facility] Last Admin: 09/04/18 11:11 Dose: 10 mg [id number] Ethyl Esters (Lovaza) 1 gm PO DAILY [facility] Last Admin: 09/04/18 11:00 Dose: 1 gm Oxycodone/Acetaminophen (Percocet 5/325 Mg Tab) 1 tab PO Q6H PRN PRN Reason: Pain, moderate (4-7) Stop: 09/06/18 21:47 Rosuvastatin Calcium (Crestor) 20 mg PO [facility] Last Admin: 09/03/18 21:18 Dose: 20 mg Saccharomyces Boulardii (Florastor) 250 mg PO DAILY [facility] Last Admin: 09/04/18 11:00 Dose: 250 mg Sitagliptin Phosphate (Januvia) 50 mg PO BID [facility] Last Admin: 09/04/18 11:00 Dose: 50 mg - Labs Labs: 09/01/18 15:10 09/02/18 07:28 Assessment and Plan - Assessment and Plan (Free Text) Assessment: FOLLOW UP WITH DR BREAUX IN HER OFFICE FOLLOW UP WITH DR MENARD IN 1-2 WEEK ----CALL FOR APPOINTMENT CONTINUE HOME MEDICATION NEW PRESCRIPTION GIVEN MECLEZINE / FLORASTOR/ COLCHICINE AND GABAPINTIN imodium for 5 days due to diarrhea STOP TAKING CARDIZEM PER DR BREAUX CAUSE BLOOD PRESSURE WAS LOW ACITIVITY TOLERATED AND HOME PT CALL DR BREAUX OR GO TO THE EMERGENCY ROOM IF SYMPTOM RETURN OR WORSENING
--- NOTE | 2018-09-04 18:03 | CP.PCM.DIS ---
Provider - Provider Date of Admission: 09/02/18 16:44 Attending physician: Kenia Breaux MD Consults: 08/31/18 21:19 Cardiology Consult Routine Comment: Consulting Provider: Shy Ortiz Consulting Physician: Shy Ortiz Reason for Consult: Pacemaker. 09/01/18 21:09 Physician Consult Routine Comment: Consulting Provider: Luis A Hobson Consulting Physician: Luis A oHbson Reason for Consult: b/l foot edema/redness 09/02/18 15:51 Vascular Surgery Routine Comment: Consulting Provider: Ilan Taylor Jr. Physician Instructions: Reason For Exam: b/l LE edema 09/02/18 17:00 Inpatient [employer] Core Measures Referral Routine Comment: Physician Instructions: Reason For Exam: CHF Hospital Course - Lab Results Lab Results: Micro Results 09/02/18 17:08 Blood-Venous Blood Culture - Preliminary NO GROWTH AFTER 48 HOURS 09/02/18 17:08 Blood-Venous Blood Culture - Preliminary NO GROWTH AFTER 48 HOURS 08/31/18 15:48 Blood Blood Culture - Preliminary NO GROWTH AFTER 4 DAYS 08/31/18 14:00 Blood Blood Culture - Final Corynebacterium Species 08/31/18 14:00 Blood Gram Stain - Final 09/01/18 06:23 Urine,Clean Catch Urine Culture - Final No Growth (<1,000 CFU/ML) Most Recent Lab Values WBC 9.8 K/uL (4.8-10.8) 09/01/18 15:10 RBC 4.39 Mil/uL (3.80-5.20) 09/01/18 15:10 Hgb 10.9 g/dL (11.0-16.0) L 09/01/18 15:10 Hct 33.8 % (34.0-47.0) L 09/01/18 15:10 MCV 77.0 fL (81.0-99.0) L 09/01/18 15:10 MCH 24.8 pg (27.0-31.0) L 09/01/18 15:10 MCHC 32.1 g/dL (33.0-37.0) L 09/01/18 15:10 RDW 17.7 % (11.5-14.5) H 09/01/18 15:10 Plt Count 274 K/uL (130-400) 09/01/18 15:10 MPV 9.3 fL (7.2-11.7) 09/01/18 15:10 Neut % (Auto) 77.7 % (50.0-75.0) H 09/01/18 15:10 Lymph % (Auto) 11.9 % (20.0-40.0) L 09/01/18 15:10 [place] % (Auto) 6.7 % (0.0-10.0) 09/01/18 15:10 Eos % (Auto) 2.7 % (0.0-4.0) 09/01/18 15:10 Baso % (Auto) 1.0 % (0.0-2.0) 09/01/18 15:10 Neut # (Auto) 7.6 K/uL (1.8-7.0) H 09/01/18 15:10 Lymph # (Auto) 1.2 K/uL (1.0-4.3) 09/01/18 15:10 [place] # (Auto) 0.7 K/uL (0.0-0.8) 09/01/18 15:10 Eos # (Auto) 0.3 K/uL (0.0-0.7) 09/01/18 15:10 Baso # (Auto) 0.1 K/uL (0.0-0.2) 09/01/18 15:10 Sodium 137 mmol/L (132-148) 09/02/18 07:28 Potassium 3.7 mmol/L (3.6-5.2) 09/02/18 07:28 Chloride 101 mmol/L (98-107) 09/02/18 07:28 Carbon Dioxide 28 mmol/L (22-30) 09/02/18 07:28 Anion Gap 11 (10-20) 09/02/18 07:28 BUN 14 mg/dL (7-17) 09/02/18 07:28 Creatinine 0.8 mg/dL (0.7-1.2) 09/02/18 07:28 Est GFR ( Amer) > 60 09/02/18 07:28 Est GFR (Non-Af Amer) > 60 09/02/18 07:28 POC Glucose (mg/dL) 107 mg/dL (65-110) 09/04/18 16:20 Random Glucose 167 mg/dL (65-105) H 09/02/18 07:28 Uric Acid 9.0 mg/dL (2.2-7.5) H 09/02/18 07:28 Calcium 8.5 mg/dl (8.6-10.4) L 09/02/18 07:28 Phosphorus 4.9 mg/dL (2.5-4.5) H 09/01/18 15:10 Magnesium 1.7 mg/dL (1.6-2.3) 09/01/18 15:10 Total Bilirubin 0.5 mg/dL (0.2-1.3) 09/01/18 15:10 AST 26 U/L (14-36) 09/01/18 15:10 ALT < 6 U/L (9-52) L 09/01/18 15:10 Alkaline Phosphatase 67 U/L (38-126) 09/01/18 15:10 Total Creatine Kinase 33 U/L (30-135) 09/01/18 19:36 CK-MB (Mass) 0.28 ng/mL (0.0-3.38) 09/01/18 19:36 Troponin I < 0.0120 ng/mL (0.00-0.120) 09/01/18 19:36 NT-Pro-B Natriuret Pep 1050 pg/mL (0-900) H 08/31/18 14:22 Total Protein 6.5 g/dL (6.3-8.3) 09/01/18 15:10 Albumin 3.7 g/dL (3.5-5.0) 09/01/18 15:10 Globulin 2.8 gm/dL (2.2-3.9) 09/01/18 15:10 Albumin/Globulin Ratio 1.3 (1.0-2.1) 09/01/18 15:10 Urine Color Straw (YELLOW) 08/31/18 18:04 Urine Clarity Clear (Clear) 08/31/18 18:04 Urine pH 5.0 (5.0-8.0) 08/31/18 18:04 Ur Specific [place] 1.005 (1.003-1.030) 08/31/18 18:04 Urine Protein Negative mg/dL (NEGATIVE) 08/31/18 18:04 Urine Glucose (UA) Normal mg/dL (Normal) 08/31/18 18:04 Urine Ketones Negative mg/dL (NEGATIVE) 08/31/18 18:04 Urine Blood 1+ (NEGATIVE) H 08/31/18 18:04 Urine Nitrate Negative (NEGATIVE) 08/31/18 18:04 Urine Bilirubin Negative (NEGATIVE) 08/31/18 18:04 Urine Urobilinogen Normal mg/dL (0.2-1.0) 08/31/18 18:04 Ur Leukocyte Esterase Neg Katelyn/uL (Negative) 08/31/18 18:04 Urine WBC (Auto) 1 /hpf (0-5) 08/31/18 18:04 Urine RBC (Auto) 1 /hpf (0-3) 08/31/18 18:04 Ur Squamous Epith Cells 2 /hpf (0-5) 08/31/18 18:04 Urine Bacteria Occ (<OCC) H 08/31/18 18:04 - Hospital Course Hospital Course: Pt was admitted with legs pain and swelling, right toe painful. Pt refused multiple interventions, would not allow blood draws, venous doppler and refused rehab. Pt was treated for acute gout and cellulitis. Pt received lasix first 48 hours, but dced as she was total body overloaded but intravascularly depleted. PT had one out two +bc likely a contaminant. She refused repeated blood cultures. Discharge Exam - Head Exam Head Exam: ATRAUMATIC, NORMAL INSPECTION, NORMOCEPHALIC Discharge Plan - Discharge Medications Prescriptions: Colchicine 0.6 mg PO DAILY 30 Days tablet Saccharomyces Boulardi [Florastor] 250 mg PO DAILY 5 Days cap Loperamide [Loperamide HCl] 2 mg PO BID 5 Days cap Meclizine [Meclizine*] 25 mg PO Q8 PRN 30 Days tab PRN Reason: Dizziness Gabapentin [Neurontin] 300 mg PO BID 30 Days cap - Follow Up Plan Condition: STABLE Disposition: HOME/ ROUTINE Instructions: Heart Failure, Adult (DC), Neuropathic Pain Additional Instructions: FOLLOW UP WITH DR BREAUX IN HER OFFICE FOLLOW UP WITH DR HOBSON IN 1-2 WEEK ----CALL FOR APPOINTMENT CONTINUE HOME MEDICATION NEW PRESCRIPTION GIVEN MECLEZINE / FLORASTOR/ COLCHICINE AND GABAPINTIN imodium for 5 days due to diarrhea STOP TAKING CARDIZEM PER DR BREAUX CAUSE BLOOD PRESSURE WAS LOW ACITIVITY TOLERATED AND HOME PT CALL DR BREAUX OR GO TO THE EMERGENCY ROOM IF SYMPTOM RETURN OR WORSENING SEGUIRSE CON EL DR BREAUX EN HE OFICINA SEGUIRSE CON EL DR HOBSON EN 1-2 SEMANAS ---- LLAME PARA LA SAIMA CONTINUAR MEDICAMENTOS PARA EL HOGAR NUEVA RECETA [place] MECLEZINA / FLORASTOR / COLCHICINA Y GABAPINTINA Imodio melva 5 romano por diarrea. DEJE DE PATRICA CARDIZEM POR DR. BREAUX [place] LA PRESIN ARTERIAL FUE BAJA LA ACITIVIDAD JANIE TOLERADO Y EN CASA PT. LLAME AL DR. BREAUX O VAYA A LA LINDA DE EMERGENCIA SI EL SNTOMA DEVUELVE O CONSIDERA Referrals: Kenia Breaux MD [Staff Provider] - Luis A Hobson DPM [Staff Provider] - Shy Ortiz MD [Staff Provider] -
== END 2018-09-04 16:46 | disposition home or self-care (01) | DRG 292 ==
LOC: C.ER 13:22 → C.9E 15:13 → C.5S 09-01 08:56 → OBSVTOIN 09-02 16:44
PROVIDERS: ADMIT Internal Medicine; ATTEND Internal Medicine
DX: I11.0 Hypertensive heart disease with heart failure (principal); L03.119 Cellulitis of unspecified part of limb; M10.9 Gout, unspecified; E11.40 Type 2 diabetes mellitus with diabetic neuropathy, unspecified; E66.01 Morbid (severe) obesity due to excess calories; I48.2 Chronic atrial fibrillation; I50.9 Heart failure, unspecified; J44.9 Chronic obstructive pulmonary disease, unspecified; I25.10 Atherosclerotic heart disease of native coronary artery without angina pectoris; E78.00 Pure hypercholesterolemia, unspecified; Z79.4 Long term (current) use of insulin; Z86.010 Personal history of colon polyps; Z87.891 Personal history of nicotine dependence; Z95.0 Presence of cardiac pacemaker